=== PATIENT | female | born 1995 | race African-American/Black ===

== ENCOUNTER 2016-07-26 07:17 | Emergency (ER) | payer OTHER ==
[~2016-07-26] VITALS: Ht 162.6 cm; Wt 110.2 kg
[~2016-07-26 07:17] MED LIST: AMOX500C PO; IBUP-1027 PO; ONDA4TAB10 SL; PREN-2 PO
[2016-07-26 07:33] VITALS: BP 155/81
[2016-07-26] MEDS ORDERED: AMOX500C PO (08:01)
--- NOTE | 2016-07-26 08:02 | PHYS DOC ---
Past Medical History Past Medical History: Migraines Past Surgical History: No Surgical History Alcohol Use: None Drug Use: None Adult General Chief Complaint Chief Complaint: SORE THROAT HPI HPI Patient is a 20 year old female presents to the emergency department with a history of sore throat and fever since yesterday. Patient states her fever was very high although was not able to provide a numerical for the temperature. Patient states she has white spots on her tonsils. She continues to state, "I googled the signs and symptoms and it indicated I have strep throat. Patient has decrease appetite. Denies nausea, vomiting or diarrhea. Patient does have foul odor from the mouth. Review of Systems Review of Systems Constitutional: subjective fever Eyes: Denies change in visual acuity, redness, or eye pain [] HENT: Denies nasal congestion. C/o sore throat [] Respiratory: Denies cough or shortness of breath [] Cardiovascular: No additional information not addressed in HPI [] GI: Denies abdominal pain, nausea, vomiting, bloody stools or diarrhea [] : Denies dysuria or hematuria [] Musculoskeletal: Denies back pain or joint pain [] Integument: Denies rash or skin lesions [] Neurologic: Denies headache, focal weakness or sensory changes [] Allergies Allergies Allergies Coded Allergies Type Severity Reaction Last Updated Verified ciprofloxacin Allergy Mild NAUSEA 03/24/16 Yes Physical Exam Physical Exam Constitutional: Well developed, well nourished, no acute distress, non-toxic appearance. [] HENT: Normocephalic, atraumatic, bilateral external ears normal, oropharynx moist, no oral exudates, nose normal. Bilateral TM normal, throat with white exudate noted on bilateral tonsils. Uvula with no deviation noted Eyes: PERRLA, EOMI, conjunctiva normal, no discharge. [] Neck: Normal range of motion, no tenderness, supple, no stridor. [] Cardiovascular:Heart rate regular rhythm, no murmur [] Lungs & Thorax: Bilateral breath sounds clear to auscultation [] Skin: Warm, dry, no erythema, no rash. [] Back: No tenderness Extremities: No tenderness, no cyanosis, no clubbing, ROM intact, no edema. [] Neurologic: Alert and oriented X 3, normal motor function, normal sensory function, no focal deficits noted. [] Psychologic: Affect normal, judgement normal, mood normal. [] Current Patient Data Vital Signs Vital Signs Date Time Temp Pulse Resp B/P Pulse Ox O2 Delivery O2 Flow Rate FiO2 07/26/16 07:33 98.8 110 17 97 Room Air 98.8 EKG EKG [] Radiology/Procedures Radiology/Procedures [] Course & Med Decision Making Course & Med Decision Making Pertinent Labs and Imaging studies reviewed. (See chart for details) Rapid strep negative. Patient will be treated with amoxicillin as the odor from the mouth smells like strep. Patient will be encouraged to continue with tylenol or ibuprofen for fever, chills or generalized body aches. Recommended plenty of fluids such as water, gatorade, or propel. Patient was provided with signs and symptoms to return to the emergency department. Patient agrees with discharge instructions, treatment regimen and followup recommendations. [] Dragon Disclaimer Dragon Disclaimer This electronic medical record was generated, in whole or in part, using a voice recognition dictation system. Departure Departure Impression: Primary Impression: Pharyngitis Disposition: HOME, SELF-CARE Condition: STABLE Referrals: UNKNOWN PCP NAME (PCP) Patient Instructions: Viral and Bacterial Pharyngitis, [id number] Additional Instructions: You have been evaluated for your sore throat. Rapid strep was negative a culture will be completed to rule out strep. However you will be placed on antibiotic Medication as prescribed Tylenol or Ibuprofen for fever, chills, or generalized body aches Drink plenty of water, gatorade or propel Discard you tooth brush in 24 hours and get a new Do not drink after anyone or let anyone drink after you for the next 24 hours Followup with your primary care provider in 5-7 days Return to emergency department as needed for signs and symptoms that become worse. Scripts Amoxicillin 500 Mg Capsule1 Cap PO BID #20 CAP Prov:EDWARD MERCHANT NP 07/26/16 EDWARD MERCHANT NP Jul 26, 2016 08:01
[2016-07-28 10:06] LABS: NEGATIVE OBC STREP NEG; POSITIVE OBC STREP POS
== END 2016-07-26 08:06 | disposition home or self-care (01) ==
LOC: ER 07:17
DX: J02.9 Acute pharyngitis, unspecified (principal); Z88.1 Allergy status to other antibiotic agents
CPT/HCPCS: 87070; 87880; 99283

== ENCOUNTER 2017-02-09 20:15 | Emergency (ER) | payer OTHER ==
[~2017-02-09] VITALS: Ht 162.6 cm; Wt 114.8 kg
[2017-02-09 20:36] VITALS: BP 129/86
[2017-02-09] MEDS ORDERED: CETI1TAB7 PO (21:15)
[2017-02-09] MEDS ORDERED: FLUT9.9S NS (21:15)
[2017-02-09] MEDS ORDERED: PROAIR RESPICL90 MCG IH (21:15)
[2017-02-09] MEDS ORDERED: BENZ100C PO (21:15)
--- NOTE | 2017-02-09 21:15 | PHYS DOC ---
Past Medical History Past Medical History: Migraines Past Surgical History: No Surgical History Alcohol Use: None Drug Use: None Adult General Chief Complaint Chief Complaint: Congestion HPI HPI Patient is a 21 year old female with history of migraine headaches who presents with cough and nasal congestion for one day. Patient denies any fever. Review of Systems Review of Systems Constitutional: See history of present illness Eyes: Denies change in visual acuity, redness, or eye pain [] HENT: nasal congestion Respiratory:cough Cardiovascular: No additional information not addressed in HPI [] GI: Denies abdominal pain, nausea, vomiting, bloody stools or diarrhea [] : Denies dysuria or hematuria [] Musculoskeletal: Denies back pain or joint pain [] Integument: Denies rash or skin lesions [] Neurologic: Denies headache, focal weakness or sensory changes [] Allergies Allergies Allergies Coded Allergies Type Severity Reaction Last Updated Verified ciprofloxacin Allergy Mild NAUSEA 03/24/16 Yes Physical Exam Physical Exam Constitutional: Well developed, well nourished, no acute distress, non-toxic appearance. [] HENT: Normocephalic, atraumatic, bilateral external ears normal, oropharynx moist, no oral exudates, nose normal. [] Eyes: PERRLA, EOMI, conjunctiva normal, no discharge. [] Neck: Normal range of motion, no tenderness, supple, no stridor. [] Cardiovascular:Heart rate regular rhythm, no murmur [] Lungs & Thorax: Bilateral breath sounds clear to auscultation [] Abdomen: Bowel sounds normal, soft, no tenderness, no masses, no pulsatile masses. [] Skin: Warm, dry, no erythema, no rash. [] Back: No tenderness, no CVA tenderness. [] Extremities: No tenderness, no cyanosis, no clubbing, ROM intact, no edema. [] Neurologic: Alert and oriented X 3, normal motor function, normal sensory function, no focal deficits noted. [] Psychologic: Affect normal, judgement normal, mood normal. [] Current Patient Data Vital Signs Vital Signs Date Time Temp Pulse Resp B/P (MAP) Pulse Ox O2 Delivery O2 Flow Rate FiO2 02/09/17 20:36 99.4 119 20 97 Room Air 99.4 EKG EKG [] Radiology/Procedures Radiology/Procedures [] Course & Med Decision Making Course & Med Decision Making Pertinent Labs and Imaging studies reviewed. (See chart for details) Patient is in the ED with symptoms consistent of upper respiratory infection including cough and nasal congestion. Discharged with Flonase, albuterol inhaler , Zyrtec and instructed to follow-up with the PCP in 1-2 weeks. Nii Disclaimer Dragon Disclaimer This electronic medical record was generated, in whole or in part, using a voice recognition dictation system. Departure Departure Impression: Primary Impression: Upper respiratory infection Additional Impression: Cough Disposition: 01 HOME, SELF-CARE Condition: STABLE Referrals: NO PCP (PCP) follow up with your doctor in one week Patient Instructions: Cough, Adult, [id number], Upper Respiratory Infection, Adult, [id number] Additional Instructions: You were seen with symptoms consistent of an upper respiratory infection. This is typically a viral illnesses that run its own course. Take the prescribed medicines as ordered. Follow-up with your doctor in 1-2 weeks. Scripts Benzonatate (TESSALON PERLE) 100 Mg Capsule 1 CAP PO TID, #30 CAP Prov: GIOVANNI STORM APRN 02/09/17 Cetirizine Hcl/Pseudoephedrine (ZYRTEC-D TABLET) 1 Each Tab.er.12h 1 TAB PO BID, #30 TAB Prov: GIOVANNI STORM APRN 02/09/17 Fluticasone Propionate (Flonase Allergy Relief) 9.9 Ml [place].susp 2 SPRAYS NS DAILY, #1 BOTTLE Prov: GIOVANNI STORM APRN 02/09/17 Albuterol Sulfate (Proair Respiclick) 90 Mcg Aer.pow.ba 1 PUFF IH PRN Q6HRS Y for SHORTNESS OF BREATH, #1 INHALER Prov: GIOVANNI STORM APRN 02/09/17 Problem Qualifiers Primary Impression: Upper respiratory infection URI type: unspecified URI Qualified Codes: J06.9 - Acute upper respiratory infection, unspecified GIOVANNI STORM APRN Feb 09, 2017 21:15
== END 2017-02-09 21:32 | disposition home or self-care (01) ==
LOC: ER 20:15
DX: J06.9 Acute upper respiratory infection, unspecified (principal); G43.909 Migraine, unspecified, not intractable, without status migrainosus; Z88.1 Allergy status to other antibiotic agents
CPT/HCPCS: 99283

== ENCOUNTER 2017-06-18 17:50 | Emergency (ER) | payer OTHER ==
[2017-06-18 20:39] LABS: URINE HCG POC HCG NEGATIVE (Negative)
[2017-06-18 20:52] LABS: BILIRUBIN,URINE NEGATIVE (NEG); CLARITY,URINE CLEAR; COLOR,URINE YELLOW; GLUCOSE,URINE NEGATIVE (NEG); NITRITE,URINE NEGATIVE (NEG); PROTEIN,URINE NEGATIVE (NEG-TRACE); UROBILINOGEN,URINE 0.2 mg/dL (0.2 mg/dL)
[2017-06-18 20:55] LABS: INFLUENZA A PATIENT NEGATIVE (NEGATIVE); INFLUENZA B PATIENT NEGATIVE (NEGATIVE); OBC FLU VALID
[2017-06-18 21:09] LABS: BACTERIA,URINE MODERATE /HPF (0-FEW); RBC,URINE 0 /HPF (0-2); SQUAMOUS EPITHELIAL CELL,UR MOD /LPF
== END 2017-06-18 21:24 | disposition home or self-care (01) ==
LOC: ER 17:50
DX: J02.9 Acute pharyngitis, unspecified (principal); N39.0 Urinary tract infection, site not specified; R19.7 Diarrhea, unspecified; R30.0 Dysuria; J45.909 Unspecified asthma, uncomplicated; Z88.1 Allergy status to other antibiotic agents
CPT/HCPCS: 71046; 81001; 81025; 87086; 87804; 87804-59; 99285-25

== ENCOUNTER 2018-04-07 18:59 | Emergency (ER) | payer SELFPAY ==
[~2018-04-07] VITALS: Ht 165.1 cm; Wt 127.5 kg
[~2018-04-07 18:59] MED LIST changes: +BENZ100C PO; +CEPH-264 PO; +CETI1TAB7 PO; +FLUT9.9S NS; +PROAIR RESPICL90 MCG IH
[2018-04-07 19:13] VITALS: BP 131/75
[2018-04-07] MEDS: ACETAMINOPHEN 500 MG TABLET PO ONE (19:51)
[2018-04-07] MEDS: ONDANSETRON ODT 4 MG TAB.RAPDIS. PO ONE (19:51)
--- NOTE | 2018-04-07 20:57 | PHYS DOC ---
Past Medical History Past Medical History: No Pertinent History Past Surgical History: Other Additional Past Surgical Histo: wisdom teeth Alcohol Use: None Drug Use: None Adult General Chief Complaint Chief Complaint: ABDOMINAL PAIN HPI HPI Patient is a 22 year old f who presents to the ED for evaluation of abdominal pain. Reports onset of generalized cramping, nausea, vomiting, diarrhea yesterday. States improved today but still present. has not taken anything for pain. Report resolved diarrhea. Tolerating PO today. No dysuria. No GI bleed symptoms. Daughter with similar symptoms. no fever. Review of Systems Review of Systems Constitutional: Denies fever or chills [] Eyes: Denies change in visual acuity, redness, or eye pain [] HENT: Denies nasal congestion or sore throat [] Respiratory: Denies cough or shortness of breath [] Cardiovascular: No chest pain, no orthopnea, no lower extremity edema GI: Adriel pain, nausea, vomiting, diarrhea all present. : Denies dysuria or hematuria [] Musculoskeletal: Denies back pain or joint pain [] Integument: Denies rash or skin lesions [] Neurologic: Denies headache, focal weakness or sensory changes [] Endocrine: Denies polyuria or polydipsia [] All other systems were reviewed and found to be within normal limits, except as documented in this note. Current Medications Current Medications Current Medications Medications (Trade) Dose Ordered Sig/Alejandro Start Time Stop Time Status Last Admin Dose Admin Acetaminophen (Tylenol) 1,000 mg 1X ONCE 04/07/18 19:45 04/07/18 19:46 DC 04/07/18 19:51 1,000 MG Ondansetron HCl (Zofran Odt) 8 mg 1X ONCE 04/07/18 19:45 04/07/18 19:46 DC 04/07/18 19:51 8 MG Allergies Allergies Allergies Coded Allergies Type Severity Reaction Last Updated Verified ciprofloxacin Allergy Mild NAUSEA 03/24/16 Yes Physical Exam Physical Exam Constitutional: Obese, no acute distress, nontoxic appearing HENT: Normocephalic, atraumatic, Eyes: PERRLA, EOMI, [] Neck: Normal range of motion, no tenderness, supple, no stridor. [] Cardiovascular:Heart rate regular rhythm, no murmur [] Lungs & Thorax: Bilateral breath sounds clear to auscultation [] Abdomen: Bowel sounds normal, soft, no tenderness, no masses, no pulsatile masses. [] Skin: Warm, dry, no erythema, no rash. [] Back: No tenderness, no CVA tenderness. [] Extremities: No tenderness, no edema. [] Neurologic: Alert and oriented X 3, normal motor function, normal sensory function, no focal deficits noted. [] Psychologic: Affect normal, judgement normal, mood normal. [] Current Patient Data Vital Signs Vital Signs Date Time Temp Pulse Resp B/P (MAP) Pulse Ox O2 Delivery O2 Flow Rate FiO2 04/07/18 19:13 98.0 94 20 131/75 (93) 97 Room Air 98.0 Lab Values Laboratory Tests Test 04/07/18 19:36 POC Urine HCG, Qualitative Hcg negative (Negative) EKG EKG [] Radiology/Procedures Radiology/Procedures [] Course & Med Decision Making Course & Med Decision Making Pertinent Labs and Imaging studies reviewed. (See chart for details) []She improved with PO Tylenol and Zofran. Patient tolerating PO. Patient with improving symptoms over the last 24 hours. She has benign abdominal exam. Discuss possibility of early pathology at this time do not feel that her exam or history indicated further evaluation. Patient was in agreement. Advised continue supportive care. ER return precautions given. Patient verbalized understanding. All questions answered Dragon Disclaimer Dragon Disclaimer This electronic medical record was generated, in whole or in part, using a voice recognition dictation system. Departure Departure Impression: Primary Impression: Gastroenteritis Disposition: 01 HOME, SELF-CARE Condition: IMPROVED Referrals: RABIA ADAMS MD (PCP) Patient Instructions: Viral Gastroenteritis Additional Instructions: Thank you for coming to [facility]. Please repeat the attached handouts. Please follow-up with your primary care physician. Return to the ER if your symptoms worsen or you have any other concerns. Scripts Ondansetron Hcl (ZOFRAN) 4 Mg Tablet 4 MG PO PRN TID PRN for NAUSEA, #15 nausea/vomiting Prov: NERY BURKS DO 04/07/18 NERY BURKS DO Apr 07, 2018 20:57
[2018-04-07] MEDS ORDERED: ONDA4TAB7 PO (20:58)
== END 2018-04-07 21:07 | disposition home or self-care (01) ==
LOC: ER 18:59
DX: K52.89 Other specified noninfective gastroenteritis and colitis (principal); Z88.1 Allergy status to other antibiotic agents
CPT/HCPCS: 81025; 99283; Q0162

== ENCOUNTER 2018-04-28 10:55 | Emergency (ER) | payer SELFPAY ==
[~2018-04-28] VITALS: Ht 165.1 cm; Wt 127.5 kg
[~2018-04-28 10:55] MED LIST changes: +ONDA4TAB7 PO
[2018-04-28 11:06] VITALS: BP 149/78
[2018-04-28] MEDS ORDERED: ACETAMINOPHEN 500 MG TABLET PO ONE (11:30)
[2018-04-28] MEDS ORDERED: ALBUTEROL SULFATE 2.5 MG/3 ML NEBU. NEB ONE (11:30)
--- NOTE | 2018-04-28 12:02 | RAD ---
Two-view chest 04/28/2018 Clinical indications: Cough for one week. COMPARISON: Chest 06/18/2017 FINDINGS: Cardiac and mediastinal silhouettes unremarkable. No pleural effusion, pneumothorax or focal consolidation. IMPRESSION: No acute cardiopulmonary abnormality. Electronically signed by: Martin De Leon MD (04/28/2018 11:59 AM) [facility]
[2018-04-28] MEDS ORDERED: AZIT250T PO (12:14)
--- NOTE | 2018-04-28 12:15 | PHYS DOC ---
Past Medical History Past Medical History: No Pertinent History Past Surgical History: Other Additional Past Surgical Histo: wisdom teeth Alcohol Use: None Drug Use: None Adult General Chief Complaint Chief Complaint: COUGH HPI HPI Patient is a 22 year old female who presents to the ER with complaints of a productive cough with clear to yellow sputum for the last week that has increased today. She denies any abdominal pain or diarrhea. She reports a tactile fever but has not measured her temperature. Pt reports nasal congestion , bilateral ear fullness, and scratchy throat with her symptoms. She states that she she vomited yesterday after coughing x2. She denies any decreased appetite. She reports intermittent shortness of breath with chest congestion. Review of Systems Review of Systems Constitutional: Reports tactile fever HENT: See HPI Respiratory: See HPI GI: Denies abdominal pain or diarrhea [] Musculoskeletal: Denies back pain or joint pain [] Integument: Denies rash or skin lesions [] Neurologic: Denies headache, focal weakness or sensory changes [] All other systems were reviewed and found to be within normal limits, except as documented in this note. Current Medications Current Medications Current Medications Medications (Trade) Dose Ordered Sig/Alejandro Start Time Stop Time Status Last Admin Dose Admin Acetaminophen (Tylenol) 1,000 mg 1X ONCE 04/28/18 11:30 04/28/18 11:31 DC 04/28/18 11:38 1,000 MG Albuterol Sulfate (Ventolin Neb Soln) 2.5 mg 1X ONCE 04/28/18 11:30 04/28/18 11:31 DC Allergies Allergies Allergies Coded Allergies Type Severity Reaction Last Updated Verified ciprofloxacin Allergy Mild NAUSEA 03/24/16 Yes Physical Exam Physical Exam Constitutional: Well developed, well nourished, no acute distress, non-toxic appearance, obese. [] HENT: Normocephalic, atraumatic, bilateral external ears normal, bilateral TMs normal, cobblestone appearance of posterior pharynx with thick post-nasal drainage, oropharynx moist, no oral exudates, nose normal. [] Eyes: PERRLA, conjunctiva normal, no discharge. [] Neck: Normal range of motion, no tenderness, supple, no stridor. [] Cardiovascular:Heart rate regular rhythm, no murmur [] Lungs & Thorax: Bilateral breath sounds clear to auscultation, diminished posterior bilaterally [] Skin: Warm, dry, no erythema, no rash. [] Extremities: No cyanosis, no clubbing, ROM intact, no edema. [] Neurologic: Alert and oriented X 3, normal motor function, normal sensory function, no focal deficits noted. [] Psychologic: Affect normal, judgement normal, mood normal. [] Current Patient Data Vital Signs Vital Signs Date Time Temp Pulse Resp B/P (MAP) Pulse Ox O2 Delivery O2 Flow Rate FiO2 04/28/18 11:59 97 Room Air 04/28/18 11:06 100.7 124 18 149/78 (101) 100.7 EKG EKG [] Radiology/Procedures Radiology/Procedures PROCEDURE: CHEST PA & LATERAL Two-view chest 04/28/2018 Clinical indications: Cough for one week. COMPARISON: Chest 06/18/2017 FINDINGS: Cardiac and mediastinal silhouettes unremarkable. No pleural effusion, pneumothorax or focal consolidation. IMPRESSION: No acute cardiopulmonary abnormality. Course & Med Decision Making Course & Med Decision Making Pertinent Labs and Imaging studies reviewed. (See chart for details) Dx: cough, pneumonia Pt was given a breathing treatment in the ER, lung sounds improved and CTA following breathing tx. Prescription for z-samanta written. Pt instructed to use a Cool mist humidifier in room at bedtime. Tylenol or ibuprofen prn pain/fever. Increase clear fluids. Avoid triggers such as smoke, fragrance, dust, and pollen. May take OTC cough suppressants as needed. Return to the ER if symptoms worsen. Patient verbalized an understanding of home care, medications, follow-up , and return to ED instructions and was in agreement with the plan of care. Dragon Disclaimer Dragon Disclaimer This electronic medical record was generated, in whole or in part, using a voice recognition dictation system. Departure Departure Impression: Primary Impression: Cough Additional Impression: Pneumonia Disposition: HOME, SELF-CARE Condition: STABLE Referrals: RABIA ADAMS MD (PCP) Patient Instructions: Cough, Adult, [id number], Pneumonia, Adult, Easy-to- Read Additional Instructions: Fill prescription(s) and use as directed. Cool mist humidifier in room at bedtime. Tylenol or ibuprofen prn pain/fever. Increase clear fluids. Avoid triggers such as smoke, fragrance, dust, and pollen. May take OTC cough suppressants as needed. Follow-up with your primary care doctor as needed, return to the ER if your symptoms worsen. Scripts Azithromycin (ZITHROMAX) 250 Mg Tablet 1 PKG PO UD, #6 TAB take 2 tablets PO day 1, then 1 tablet PO days 2-5 Prov: YUSEF LEARY [employer]LECT[employer]ICAL [employer]SEMBLY TECHNICIAN 04/28/18 Problem Qualifiers Additional Impression: Pneumonia Pneumonia type: due to unspecified organism Laterality: unspecified laterality Lung location: lower lobe of lung Qualified Codes: J18.1 - Lobar pneumonia, unspecified organism YUSEF LEARY ELECTRICAL ASSEMBLY TECHNICIAN Apr 28, 2018 12:15
== END 2018-04-28 12:31 | disposition home or self-care (01) ==
LOC: ER 10:55
DX: J18.1 Lobar pneumonia, unspecified organism (principal); R11.10 Vomiting, unspecified; Z88.1 Allergy status to other antibiotic agents
CPT/HCPCS: 71046; 94640; 99283

== ENCOUNTER 2018-11-14 19:00 | Emergency (ER) | payer OTHER ==
[~2018-11-14] VITALS: Ht 162.6 cm; Wt 127.5 kg
[~2018-11-14 19:00] MED LIST changes: +AZIT250T PO
[2018-11-14 19:32] VITALS: BP 140/81
[2018-11-14 19:52] LABS: BILIRUBIN,URINE NEGATIVE (NEG); CLARITY,URINE CLEAR; COLOR,URINE YELLOW; NITRITE,URINE NEGATIVE (NEG); PH,URINE 5.5; PROTEIN,URINE NEGATIVE (NEG-TRACE); UROBILINOGEN,URINE 0.2 mg/dL (0.2 mg/dL)
[2018-11-14 20:01] LABS: BACTERIA,URINE FEW /HPF (0-FEW); RBC,URINE 0 /HPF (0-2); SQUAMOUS EPITHELIAL CELL,UR OCC /LPF; WBC,URINE OCC /HPF (0-4)
[2018-11-14 20:27] LABS: BASO # 0.1 x10^3/uL (0.0-0.2); BASO % 1 % (0-3); EOS # 0.1 x10^3/uL (0.0-0.7); EOS % 1 % (0-3); HEMATOCRIT 39.5 % (36.0-47.0); HEMOGLOBIN 13.1 g/dL (12.0-15.5); LYMPH # 3.9 x10^3/uL (1.0-4.8); LYMPH % 33 % (24-48); MEAN CORPUSCULAR HEMOGLOBIN 30 pg (25-35); MEAN CORPUSCULAR HGB CONC 33 g/dL (31-37); MEAN CORPUSCULAR VOLUME 89 fL (79-100); MONO # 0.9 x10^3/uL (0.0-1.1); MONO % 8 % (0-9); NEUT # 6.8 x10^3uL (1.8-7.7); NEUT % 58 % (31-73); PLATELET COUNT 339 x10^3/uL (140-400); RED BLOOD COUNT 4.42 x10^6/uL (3.50-5.40); RED CELL DISTRIBUTION WIDTH 15.5 % (11.5-14.5); WHITE BLOOD COUNT 11.7 x10^3/uL (4.0-11.0)
[2018-11-14] MEDS ORDERED: IV NORMAL SALINE 1000ML BAG 1,000 ML IV ONE (20:30)
[2018-11-14 20:40] LABS: CALCIUM 9.7 mg/dL (8.5-10.1); CREATININE 0.7 mg/dL (0.6-1.0); GFR 125.5; POTASSIUM 3.7 mmol/L (3.5-5.1)
[2018-11-14 20:47] LABS: ALBUMIN 3.5 g/dL (3.4-5.0); ALBUMIN/GLOBULIN RATIO 0.7 (1.0-1.7); TOTAL BILIRUBIN 0.2 mg/dL (0.2-1.0); TOTAL PROTEIN 8.2 g/dL (6.4-8.2)
[2018-11-14] MEDS ORDERED: ACETAMINOPHEN 325 MG TABLET. PO ONE (22:30)
--- NOTE | 2018-11-14 23:11 | RAD ---
OB < 14 WKS History: Bilateral flank pain and vomiting Comparison: None. Findings: Multiple transabdominal sonographic images of the pelvis are submitted. Uterus measured 6.2 cm x 5.8 cm x 10 cm. There is a single intrauterine gestational sac. Gestational sac morphology is within normal limits. There is demonstrable pole. There is demonstrable cardiac activity 173 bpm. Placenta and anatomy are not well visualized at this age of the . Amniotic fluid volume is considered within normal limits. There is a visible yolk sac. [place]-rump length measurement of 2.14 cm corresponds with 8 weeks 5 days. Adjusted ultrasound age is 8 weeks 5 days with estimated delivery date of 06/21/2019. LMP age is 9 weeks 4 days with estimated delivery date 06/15/2019. Right maternal ovary measured 2.4 x 2 x 2.1 cm with normal low resistance vascularity. Left ovary measured 3 x 2.6 x 1.8 cm with normal color flow. There is a focus of hypoechogenicity with internal echoes of the left ovary about 2.1 x 2.1 x 1.8 cm. No significant free fluid is demonstrated. Impression: 1. There is a single viable intrauterine with adjusted ultrasound age of 8 weeks 5 days, estimated delivery date of 06/21/2019. There is what likely represents a corpus luteal cyst of the left ovary. Electronically signed by: Cliff Lucio MD (11/14/2018 11:08 PM) [facility]
--- NOTE | 2018-11-14 23:11 | PHYS DOC ---
Past Medical History Past Medical History: Asthma Past Surgical History: Other Additional Past Surgical Histo: wisdom teeth Alcohol Use: None Drug Use: None Adult General Chief Complaint Chief Complaint: ABDOMINAL PAIN HPI HPI 23-year-old female presents to ER for complaints of bilateral side pain which started last night. Patient denies any mid to lower abdominal pain or back pain. Patient states she is approximately 9 weeks with LMP 09/08/18. She denies any OB care. Patient states she is 2 para 1 with this . She denies urinary symptoms, fever, or V/D episodes. She reports she has had intermittent nausea since . Denies any injury or falls. Patient denies any vaginal bleeding/discharge. She reports she does have slight headache denies vision change, dizziness, or lightheadedness. Patient states she hasn't had much to eat today but has been drinking fluids. Review of Systems Review of Systems Constitutional: Denies fever or chills [] Eyes: Denies change in visual acuity, redness, or eye pain [] HENT: Denies nasal congestion or sore throat [] Respiratory: Denies cough or shortness of breath [] Cardiovascular: No additional information not addressed in HPI [] GI: Denies abdominal pain, nausea, vomiting, bloody stools or diarrhea [] : Denies dysuria or hematuria [] Musculoskeletal: Denies back pain or joint pain [] Integument: Denies rash or skin lesions [] Neurologic: Denies headache, focal weakness or sensory changes [] Endocrine: Denies polyuria or polydipsia [] All other systems were reviewed and found to be within normal limits, except as documented in this note. Current Medications Current Medications Current Medications Medications (Trade) Dose Ordered Sig/Alejandro Start Time Stop Time Status Last Admin Dose Admin Acetaminophen (Tylenol) 650 mg 1X ONCE 11/14/18 22:30 11/14/18 22:31 DC 11/14/18 22:32 650 MG Sodium Chloride 1,000 ml @ 1,000 mls/hr 1X ONCE 11/14/18 20:30 11/14/18 21:29 DC 11/14/18 20:25 1,000 MLS/HR Allergies Allergies Allergies Coded Allergies Type Severity Reaction Last Updated Verified ciprofloxacin Allergy Mild NAUSEA 03/24/16 Yes Physical Exam Physical Exam Constitutional: Well developed, well nourished, no acute distress, non-toxic appearance. [] HENT: Normocephalic, atraumatic, oropharynx moist, nose normal. [] Eyes: Pupils equal, no nystagmus, conjunctiva normal, no discharge. [] Neck: Normal range of motion, no tenderness, supple, no stridor. [] Cardiovascular:Heart rate regular rhythm, no murmur [] Lungs & Thorax: Bilateral breath sounds clear to auscultation- resp. equal/nonlabored Abdomen: Bowel sounds normal, soft/obese, no tenderness in upper/mid umbilical/lower abd- tender on lower lateral sides no crepitus/swelling, no masses, no pulsatile masses. [] Skin: Warm, dry, no erythema, no rash. [] Back: No tenderness, no CVA tenderness. [] Extremities: No tenderness, no cyanosis, no clubbing, ROM intact, no edema. [] Neurologic: Alert and oriented X 3, normal motor function, normal sensory function, no focal deficits noted. [] Psychologic: Affect normal, judgement normal, mood normal. [] Current Patient Data Vital Signs Vital Signs Date Time Temp Pulse Resp B/P (MAP) Pulse Ox O2 Delivery O2 Flow Rate FiO2 11/14/18 19:32 98.6 114 22 140/81 (100) 98 Room Air 98.6 Lab Values Laboratory Tests Test 11/14/18 19:35 11/14/18 19:44 White Blood Count 11.7 x10^3/uL (4.0-11.0) H Red Blood Count 4.42 x10^6/uL (3.50-5.40) Hemoglobin 13.1 g/dL (12.0-15.5) Hematocrit 39.5 % (36.0-47.0) Mean Corpuscular Volume 89 fL (79-100) Mean Corpuscular Hemoglobin 30 pg (25-35) Mean Corpuscular Hemoglobin Concent 33 g/dL (31-37) Red Cell Distribution Width 15.5 % (11.5-14.5) H Platelet Count 339 x10^3/uL (140-400) Neutrophils (%) (Auto) 58 % (31-73) Lymphocytes (%) (Auto) 33 % (24-48) Monocytes (%) (Auto) 8 % (0-9) Eosinophils (%) (Auto) 1 % (0-3) Basophils (%) (Auto) 1 % (0-3) Neutrophils # (Auto) 6.8 x10^3uL (1.8-7.7) Lymphocytes # (Auto) 3.9 x10^3/uL (1.0-4.8) Monocytes # (Auto) 0.9 x10^3/uL (0.0-1.1) Eosinophils # (Auto) 0.1 x10^3/uL (0.0-0.7) Basophils # (Auto) 0.1 x10^3/uL (0.0-0.2) Urine Color Yellow Urine Clarity Clear Urine pH 5.5 Urine Specific [place] >=1.030 Urine Protein Negative mg/dL (NEG-TRACE) Urine Glucose (UA) Negative mg/dL (NEG) Urine Ketones (Stick) Negative mg/dL (NEG) Urine Blood Negative (NEG) Urine Nitrite Negative (NEG) Urine Bilirubin Negative (NEG) Urine Urobilinogen Dipstick 0.2 mg/dL (0.2 mg/dL) Urine Leukocyte Esterase Small (NEG) Urine RBC 0 /HPF (0-2) Urine WBC Occ /HPF (0-4) Urine Squamous Epithelial Cells Occ /LPF Urine Bacteria Few /HPF (0-FEW) Urine Mucus Slight /LPF Maternal Serum HCG Beta Subunit 05903 mIU/mL (0-5) H Sodium Level 137 mmol/L (136-145) Potassium Level 3.7 mmol/L (3.5-5.1) Chloride Level 101 mmol/L (98-107) Carbon Dioxide Level 24 mmol/L (21-32) Anion Gap 12 (6-14) Blood Urea Nitrogen 11 mg/dL (7-20) Creatinine 0.7 mg/dL (0.6-1.0) Estimated GFR (Cockcroft-Gault) 125.5 BUN/Creatinine Ratio 16 (6-20) Glucose Level 91 mg/dL (70-99) Calcium Level 9.7 mg/dL (8.5-10.1) Total Bilirubin 0.2 mg/dL (0.2-1.0) Aspartate Amino Transferase (AST) 13 U/L (15-37) L Alanine Aminotransferase (ALT) 17 U/L (14-59) Alkaline Phosphatase 74 U/L (46-116) Total Protein 8.2 g/dL (6.4-8.2) Albumin 3.5 g/dL (3.4-5.0) Albumin/Globulin Ratio 0.7 (1.0-1.7) L Lipase 107 U/L (73-393) POC Urine HCG, Qualitative Hcg positive (Negative) Laboratory Tests 11/14/18 19:35 Laboratory Tests 11/14/18 19:35 EKG EKG [] Radiology/Procedures Radiology/Procedures [] Course & Med Decision Making Course & Med Decision Making Pertinent Labs and Imaging studies reviewed. (See chart for details) Patient was evaluated in the ER for complaints of lateral side pain. On exam patient had no upper/mid umbilical/lower abdominal pain or distention. Abdomen was soft. Patient had labs and ultrasound obtained. Labs unremarkable. UA negative for infection. US report of "There is a single viable intrauterine with adjusted ultrasound age of 8 weeks 5 days, estimated delivery date of 06/21/2019". Patient had reports of mild headache and so crackers, water and dose of Tylenol was provided and patient reported symptoms much improved. Test results were discussed with her. Advised on need to establish STAMP ANALYST doctor so will provide Dr. Mishra's referral information on discharge paperwork and community clinic resource sheet will be provided. Patient advised on increasing fluid intake. Patient advised on well-balanced meals. Education provided on signs and symptoms to return to ER. Discharge instructions were discussed. Dragon Disclaimer Dragon Disclaimer This electronic medical record was generated, in whole or in part, using a voice recognition dictation system. Departure Departure Impression: Primary Impression: Abdominal pain during Disposition: 01 HOME, SELF-CARE Condition: STABLE Referrals: UNKNOWN PCP NAME (PCP) HERNANDEZ MISHRA Jr, MD Patient Instructions: Abdominal Pain During Additional Instructions: It is important for you to establish an STAMP ANALYST doctor for reevaluation and further care during her . Call as soon as possible and schedule an appointment. Drink plenty of water avoiding sodas. Eat well balanced meals daily. Tylenol as needed for pain as directed on container. If unable to get an appointment with STAMP ANALYST and symptoms worsen or with concerns return to the emergency department for reevaluation and further care. Your ultrasound report showed that you are 8 weeks 5 days with an estimated delivery date of 06/21/2019. [address]YA [address] MECHANICAL ENGINEER Nov 14, 2018 23:10
== END 2018-11-14 23:55 | disposition home or self-care (01) ==
LOC: ER 19:00
DX: O26.891 Other specified pregnancy related conditions, first trimester (principal); R10.30 Lower abdominal pain, unspecified; R11.0 Nausea; R51 Headache; O99.511 Diseases of the respiratory system complicating pregnancy, first trimester; J45.909 Unspecified asthma, uncomplicated; Z3A.01 Less than 8 weeks gestation of pregnancy; Z88.1 Allergy status to other antibiotic agents
CPT/HCPCS: 36415; 76801; 80053; 81001; 81025; 83690; 84702; 85025; 87086; 96360; 96361; 99285; J7030

== ENCOUNTER 2018-11-25 09:19 | Emergency (ER) | payer OTHER ==
[~2018-11-25] VITALS: Ht 162.6 cm; Wt 127.0 kg
[2018-11-25 09:35] VITALS: BP 143/84
[2018-11-25 09:57] LABS: BILIRUBIN,URINE NEGATIVE (NEG); CLARITY,URINE CLEAR; COLOR,URINE YELLOW; NITRITE,URINE NEGATIVE (NEG); PROTEIN,URINE 30 mg/dL (NEG-TRACE); UROBILINOGEN,URINE 0.2 mg/dL (0.2 mg/dL)
[2018-11-25 10:06] LABS: RBC,URINE >40 /HPF (0-2); SQUAMOUS EPITHELIAL CELL,UR MOD /LPF
[2018-11-25 10:07] LABS: BACTERIA,URINE MOD /HPF (0-FEW)
--- NOTE | 2018-11-25 10:08 | PHYS DOC ---
Past Medical History Past Medical History: Asthma Past Surgical History: Other Additional Past Surgical Histo: wisdom teeth Alcohol Use: None Drug Use: None Adult General Chief Complaint Chief Complaint: ABDOMINAL PAIN IN HPI HPI Patient is a 23 year old female 2 para 1 currently 10 weeks presenting to the ED today complaining of mild left lower quadrant abdominal daniella n described as sharp as well as vaginal bleeding that began 15 minutes prior to arrival to the ED. Patient states she was having intercourse when she noted the pain and the bleeding. Patient denies any urgency, frequency or dysuria. Denies any nausea vomiting. She states she has not seen her TECHNICAL SALES ADVISOR yet because of scheduling issues related to the office being booked weeks ahead. Review of Systems Review of Systems Constitutional: Denies fever or chills [] Eyes: Denies change in visual acuity, redness, or eye pain [] HENT: Denies nasal congestion or sore throat [] Respiratory: Denies cough or shortness of breath [] Cardiovascular: No additional information not addressed in HPI [] GI: Reports left lower quadrant abdominal pain and vaginal bleeding in , denies nausea, vomiting, bloody stools or diarrhea [] : Denies dysuria or hematuria [] Musculoskeletal: Denies back pain or joint pain [] Integument: Denies rash or skin lesions [] Neurologic: Denies headache, focal weakness or sensory changes [] All other systems were reviewed and found to be within normal limits, except as documented in this note. Allergies Allergies Allergies Coded Allergies Type Severity Reaction Last Updated Verified ciprofloxacin Allergy Mild NAUSEA 03/24/16 Yes Physical Exam Physical Exam Constitutional: Well developed, well nourished, no acute distress, non-toxic appearance. [] HENT: Normocephalic, atraumatic, bilateral external ears normal, oropharynx moist, no oral exudates, nose normal. [] Eyes: PERRLA, EOMI, conjunctiva normal, no discharge. [] Neck: Normal range of motion, no tenderness, supple, no stridor. [] Cardiovascular:Heart rate regular rhythm, no murmur [] Lungs & Thorax: Bilateral breath sounds clear to auscultation [] Abdomen: Bowel sounds normal, soft, no tenderness, no masses, no pulsatile masses. [] Pelvic exam External pelvic appears normal, cervix is visualized, closed, no CMT, no adnexal tenderness, trace amount of bright red blood in the vaginal vault. Skin: Warm, dry, no erythema, no rash. [] Back: No tenderness, no CVA tenderness. [] Extremities: No tenderness, no cyanosis, no clubbing, ROM intact, no edema. [] Neurologic: Alert and oriented X 3, normal motor function, normal sensory function, no focal deficits noted. [] Psychologic: Affect normal, judgement normal, mood normal. [] Current Patient Data Vital Signs Vital Signs Date Time Temp Pulse Resp B/P (MAP) Pulse Ox O2 Delivery O2 Flow Rate FiO2 11/25/18 09:35 99.1 111 20 143/84 (103) 97 Room Air 99.1 Lab Values Laboratory Tests Test 11/25/18 09:30 11/25/18 09:50 11/25/18 10:15 Urine Collection Type Unknown Urine Color Yellow Urine Clarity Clear Urine pH 6.0 Urine Specific [place] 1.025 Urine Protein 30 mg/dL (NEG-TRACE) Urine Glucose (UA) Negative mg/dL (NEG) Urine Ketones (Stick) Negative mg/dL (NEG) Urine Blood Large (NEG) Urine Nitrite Negative (NEG) Urine Bilirubin Negative (NEG) Urine Urobilinogen Dipstick 0.2 mg/dL (0.2 mg/dL) Urine Leukocyte Esterase Small (NEG) Urine RBC >40 /HPF (0-2) Urine WBC 5-10 /HPF (0-4) Urine Squamous Epithelial Cells Mod /LPF Urine Bacteria Mod /HPF (0-FEW) Urine Mucus Slight /LPF Urine Opiates Screen Neg (NEG) Urine Methadone Screen Neg (NEG) Urine Barbiturates Neg (NEG) Urine Phencyclidine Screen Neg (NEG) Urine Amphetamine/Methamphetamine Neg (NEG) Urine Benzodiazepines Screen Neg (NEG) Urine Cocaine Screen Neg (NEG) Urine Cannabinoids Screen Neg (NEG) Urine Ethyl Alcohol Neg (NEG) White Blood Count 9.5 x10^3/uL (4.0-11.0) Red Blood Count 4.41 x10^6/uL (3.50-5.40) Hemoglobin 13.0 g/dL (12.0-15.5) Hematocrit 39.4 % (36.0-47.0) Mean Corpuscular Volume 89 fL (79-100) Mean Corpuscular Hemoglobin 30 pg (25-35) Mean Corpuscular Hemoglobin Concent 33 g/dL (31-37) Red Cell Distribution Width 15.1 % (11.5-14.5) H Platelet Count 311 x10^3/uL (140-400) Neutrophils (%) (Auto) 59 % (31-73) Lymphocytes (%) (Auto) 32 % (24-48) Monocytes (%) (Auto) 8 % (0-9) Eosinophils (%) (Auto) 1 % (0-3) Basophils (%) (Auto) 1 % (0-3) Neutrophils # (Auto) 5.6 x10^3uL (1.8-7.7) Lymphocytes # (Auto) 3.0 x10^3/uL (1.0-4.8) Monocytes # (Auto) 0.8 x10^3/uL (0.0-1.1) Eosinophils # (Auto) 0.1 x10^3/uL (0.0-0.7) Basophils # (Auto) 0.1 x10^3/uL (0.0-0.2) Maternal Serum HCG Beta Subunit 99558 mIU/mL (0-5) H Sodium Level 134 mmol/L (136-145) L Potassium Level 3.7 mmol/L (3.5-5.1) Chloride Level 99 mmol/L (98-107) Carbon Dioxide Level 21 mmol/L (21-32) Anion Gap 14 (6-14) Blood Urea Nitrogen 7 mg/dL (7-20) Creatinine 0.6 mg/dL (0.6-1.0) Estimated GFR (Cockcroft-Gault) 149.9 BUN/Creatinine Ratio 12 (6-20) Glucose Level 86 mg/dL (70-99) Calcium Level 9.3 mg/dL (8.5-10.1) Total Bilirubin 0.3 mg/dL (0.2-1.0) Aspartate Amino Transferase (AST) 13 U/L (15-37) L Alanine Aminotransferase (ALT) 14 U/L (14-59) Alkaline Phosphatase 77 U/L (46-116) Total Protein 8.0 g/dL (6.4-8.2) Albumin 3.3 g/dL (3.4-5.0) L Albumin/Globulin Ratio 0.7 (1.0-1.7) L Ethyl Alcohol Level < 10 mg/dL (0-10) Laboratory Tests 11/25/18 10:15 Laboratory Tests 11/25/18 10:15 Microbiology 11/25/18 Wet Prep - Final, Complete Laboratory Tests Test 11/25/18 09:30 11/25/18 09:50 11/25/18 10:15 Urine Collection Type Unknown Urine Color Yellow Urine Clarity Clear Urine pH 6.0 Urine Specific [place] 1.025 Urine Protein 30 mg/dL (NEG-TRACE) Urine Glucose (UA) Negative mg/dL (NEG) Urine Ketones (Stick) Negative mg/dL (NEG) Urine Blood Large (NEG) Urine Nitrite Negative (NEG) Urine Bilirubin Negative (NEG) Urine Urobilinogen Dipstick 0.2 mg/dL (0.2 mg/dL) Urine Leukocyte Esterase Small (NEG) Urine RBC >40 /HPF (0-2) Urine WBC 5-10 /HPF (0-4) Urine Squamous Epithelial Cells Mod /LPF Urine Bacteria Mod /HPF (0-FEW) Urine Mucus Slight /LPF Urine Opiates Screen Neg (NEG) Urine Methadone Screen Neg (NEG) Urine Barbiturates Neg (NEG) Urine Phencyclidine Screen Neg (NEG) Urine Amphetamine/Methamphetamine Neg (NEG) Urine Benzodiazepines Screen Neg (NEG) Urine Cocaine Screen Neg (NEG) Urine Cannabinoids Screen Neg (NEG) Urine Ethyl Alcohol Neg (NEG) White Blood Count 9.5 x10^3/uL (4.0-11.0) Red Blood Count 4.41 x10^6/uL (3.50-5.40) Hemoglobin 13.0 g/dL (12.0-15.5) Hematocrit 39.4 % (36.0-47.0) Mean Corpuscular Volume 89 fL (79-100) Mean Corpuscular Hemoglobin 30 pg (25-35) Mean Corpuscular Hemoglobin Concent 33 g/dL (31-37) Red Cell Distribution Width 15.1 % (11.5-14.5) H Platelet Count 311 x10^3/uL (140-400) Neutrophils (%) (Auto) 59 % (31-73) Lymphocytes (%) (Auto) 32 % (24-48) Monocytes (%) (Auto) 8 % (0-9) Eosinophils (%) (Auto) 1 % (0-3) Basophils (%) (Auto) 1 % (0-3) Neutrophils # (Auto) 5.6 x10^3uL (1.8-7.7) Lymphocytes # (Auto) 3.0 x10^3/uL (1.0-4.8) Monocytes # (Auto) 0.8 x10^3/uL (0.0-1.1) Eosinophils # (Auto) 0.1 x10^3/uL (0.0-0.7) Basophils # (Auto) 0.1 x10^3/uL (0.0-0.2) Maternal Serum HCG Beta Subunit 03167 mIU/mL (0-5) H Sodium Level 134 mmol/L (136-145) L Potassium Level 3.7 mmol/L (3.5-5.1) Chloride Level 99 mmol/L (98-107) Carbon Dioxide Level 21 mmol/L (21-32) Anion Gap 14 (6-14) Blood Urea Nitrogen 7 mg/dL (7-20) Creatinine 0.6 mg/dL (0.6-1.0) Estimated GFR (Cockcroft-Gault) 149.9 BUN/Creatinine Ratio 12 (6-20) Glucose Level 86 mg/dL (70-99) Calcium Level 9.3 mg/dL (8.5-10.1) Total Bilirubin 0.3 mg/dL (0.2-1.0) Aspartate Amino Transferase (AST) 13 U/L (15-37) L Alanine Aminotransferase (ALT) 14 U/L (14-59) Alkaline Phosphatase 77 U/L (46-116) Total Protein 8.0 g/dL (6.4-8.2) Albumin 3.3 g/dL (3.4-5.0) L Albumin/Globulin Ratio 0.7 (1.0-1.7) L Ethyl Alcohol Level < 10 mg/dL (0-10) Laboratory Tests 11/25/18 10:15 Laboratory Tests 11/25/18 10:15 Microbiology 11/25/18 Wet Prep - Final, Complete EKG EKG [] Radiology/Procedures Radiology/Procedures []PROCEDURE: OB <14 WKS W/TV Obstetrical ultrasound, 11/25/2018: HISTORY: with bleeding Transabdominal scans were obtained. The uterus contains a single gestational sac. The gestational sac contains a pole demonstrating a crown-rump length of 3.6 cm. This suggests a gestational age of 10 weeks and 4 days yielding a sonographic EDC of 06/19/2019. There has been normal growth since 3 11/14/2018 exam. cardiac activity is present with a heart rate of 165 bpm. There is no evidence of subchorionic hemorrhage. The maternal ovaries are unremarkable. No adnexal mass is seen. No free fluid is evident in the pelvis. IMPRESSION: Single viable uterine fetus of 11-12 weeks gestational age as described above. Electronically signed by: Elliot Marshall MD (11/25/2018 10:52 AM) [facility] DICTATED and SIGNED BY: ELLIOT MARSHALL MD DATE: 11/25/18 1052 Course & Med Decision Making Course & Med Decision Making Pertinent Labs and Imaging studies reviewed. (See chart for details) This is a 23-year-old female patient presenting to the ED today with complaints of vaginal bleeding in as well as left lower quadrant abdominal pain. She is a 2 para 1 currently 10 weeks . Symptoms began a couple minutes prior to coming to the ED while having intercourse. CBC with a normal WBC, CMP with no acute findings. + hcg, Beta hcg 53,462. Urine analysis is noted for small amount of slough leukocytes, WBCs 5-10. Discharged on cephalexin. Blood group A+ done 2013. OB ultrasound noted for an IUP 10 weeks 4 days. Patient is in no distress. She was provided instructions to maintain pelvic rest including no intercourse until the bleeding has stopped and she has been seen by the TECHNICAL SALES ADVISOR. Requested her to contact the TECHNICAL SALES ADVISOR tomorrow or today and set up a follow-up appointment. Dragon Disclaimer Dragon Disclaimer This electronic medical record was generated, in whole or in part, using a voice recognition dictation system. Departure Departure Impression: Primary Impression: Threatened miscarriage Additional Impression: Urinary tract infection during Disposition: 01 HOME, SELF-CARE Condition: STABLE Referrals: UNKNOWN PCP NAME (PCP) HERNANDEZ MISHRA Jr, MD Call him today and set up a follow up appointment Patient Instructions: Threatened Miscarriage, [id number], Urinary Tract Infection Additional Instructions: You were evaluated in the emergency room for vaginal bleeding in with abdominal pain. You also have urinary tract infection, we put you on antibiotics, take them as prescribed until completed. Maintain bedrest/pelvic rest this includes no strenuous activities, no sexual intercourse or until seen by the TECHNICAL SALES ADVISOR. Call Dr. Mishra today and set up a follow up appointment. Scripts Cephalexin (CEPHALEXIN) 500 Mg Tablet 1 TAB PO BID, #14 TAB Prov: GIOVANNI STORM APRN 11/25/18 Problem Qualifiers Additional Impression: Urinary tract infection during Trimester: first trimester Qualified Codes: O23.41 - Unspecified infection of urinary tract in , first trimester GIOVANNI STORM APRN Nov 25, 2018 10:08
[2018-11-25 10:25] LABS: BASO # 0.1 x10^3/uL (0.0-0.2); BASO % 1 % (0-3); EOS # 0.1 x10^3/uL (0.0-0.7); EOS % 1 % (0-3); HEMATOCRIT 39.4 % (36.0-47.0); LYMPH % 32 % (24-48); MEAN CORPUSCULAR HEMOGLOBIN 30 pg (25-35); MEAN CORPUSCULAR HGB CONC 33 g/dL (31-37); MEAN CORPUSCULAR VOLUME 89 fL (79-100); MONO # 0.8 x10^3/uL (0.0-1.1); MONO % 8 % (0-9); NEUT # 5.6 x10^3uL (1.8-7.7); NEUT % 59 % (31-73); PLATELET COUNT 311 x10^3/uL (140-400); RED BLOOD COUNT 4.41 x10^6/uL (3.50-5.40); RED CELL DISTRIBUTION WIDTH 15.1 % (11.5-14.5); WHITE BLOOD COUNT 9.5 x10^3/uL (4.0-11.0)
[2018-11-25 10:38] LABS: CALCIUM 9.3 mg/dL (8.5-10.1); CREATININE 0.6 mg/dL (0.6-1.0); GFR 149.9; POTASSIUM 3.7 mmol/L (3.5-5.1)
[2018-11-25 10:44] LABS: ALBUMIN 3.3 g/dL (3.4-5.0); ALBUMIN/GLOBULIN RATIO 0.7 (1.0-1.7); TOTAL BILIRUBIN 0.3 mg/dL (0.2-1.0)
[2018-11-25 10:49] LABS: BARBITURATES NEG (NEG); BENZODIAZEPINES NEG (NEG); CANNABINOIDS NEG (NEG); COCAINE NEG (NEG); METHADONE NEG (NEG); OPIATES NEG (NEG); PHENCYCLIDINE NEG (NEG)
[2018-11-25 10:55] LABS: AMPHETAMINE/METHAMPHETAMINE NEG (NEG)
--- NOTE | 2018-11-25 10:55 | RAD ---
Obstetrical ultrasound, 11/25/2018: HISTORY: with bleeding Transabdominal scans were obtained. The uterus contains a single gestational sac. The gestational sac contains a pole demonstrating a crown-rump length of 3.6 cm. This suggests a gestational age of 10 weeks and 4 days yielding a sonographic EDC of 06/19/2019. There has been normal growth since 3 11/14/2018 exam. cardiac activity is present with a heart rate of 165 bpm. There is no evidence of subchorionic hemorrhage. The maternal ovaries are unremarkable. No adnexal mass is seen. No free fluid is evident in the pelvis. IMPRESSION: Single viable uterine fetus of 11-12 weeks gestational age as described above. Electronically signed by: Elliot Marshall MD (11/25/2018 10:52 AM) [facility]
[2018-11-25] MEDS ORDERED: CEPH500T PO (11:37)
[2018-11-28 15:15] LABS: GC PROBE Negative (Negative)
== END 2018-11-25 11:45 | disposition home or self-care (01) ==
LOC: ER 09:19
DX: O20.0 Threatened abortion (principal); O23.41 Unspecified infection of urinary tract in pregnancy, first trimester; O99.511 Diseases of the respiratory system complicating pregnancy, first trimester; J45.909 Unspecified asthma, uncomplicated; Z3A.10 10 weeks gestation of pregnancy; Z88.1 Allergy status to other antibiotic agents
CPT/HCPCS: 36415; 76801; 76817; 80053; 80307; 81001; 84702; 85025; 86850; 86900; 86901; 87491; 87591; 99285; G0480; Q0111

== ENCOUNTER → 2019-02-02 | Outpatient (CLI) | payer OTHER ==
[2019-01-22 16:20] VITALS: BP 132/73
[~2019-02-02] MED LIST changes: +ALBU2.5V8 INH; +CEPH500T PO
--- NOTE | 2019-02-02 18:00 | RAD ---
Examination: PREG MORE THAN OR EQ TO 14 WKS History: Uterine size and date discrepancy. Comparison/Correlation: 11/25/2018 OB ultrasound exam FINDINGS: Single living intrauterine gestation with cephalic lie is present with heart rate of 143 bpm. anatomy identified includes: Bladder, spine, bilateral lateral ventricles, stomach, heart, aorta, three-vessel cord insertion, bilateral kidneys, diaphragm, cerebellum, cisterna magna, bilateral upper extremities, and bilateral lower extremities. gender: Not determined due to positioning Maternal cervical length is 4.2 cm. Placenta is present at the posterior wall and is low-lying. No evidence of previa although the placenta is 1.5 cm from the cervical os. Amniotic fluid index of 14.8 is evident. Normal amount of amniotic fluid noted. Estimated weight is 358 g. measurements include: Biparietal diameter: 4.9 cm corresponding to 20 weeks 5 days. Femur length of 3.4 cm corresponding to 20 weeks 5 days. Head circumference of 17.9 cm corresponding to 20 weeks 2 days. Abdominal circumference of 15.1 cm corresponding to 20 weeks 3 days. Age by 4 parameters corresponds to 20 weeks 4 days. EDC by average age is 06/18/2019. Cephalic index of 86.7 is mildly above normal range. H/A ratio is 1.2. FL/BPD is 70. FL/ AC is 22.5. IMPRESSION: Single living intrauterine gestation with average ultrasound age corresponding to 20 weeks 4 days. Adequate interval growth is noted since the prior exam. Placenta is near the maternal cervical os. Electronically signed by: Christophe Collazo MD (02/02/2019 5:57 PM) [facility]
== END | disposition home or self-care (01) ==
LOC: US 14:42
PROVIDERS: ATTEND Obstetrics & Gynecology
DX: O26.842 Uterine size-date discrepancy, second trimester (principal); Z3A.20 20 weeks gestation of pregnancy
CPT/HCPCS: 76805

== ENCOUNTER 2019-02-20 13:13 | Observation (INO) | payer OTHER ==
[2019-01-22 16:20] VITALS: BP 132/73
[2019-02-20] MEDS ORDERED: IV RINGERS,LACTATED 1000ML 1,000 ML IV SCH (13:32)
[2019-02-20 13:43] LABS: BILIRUBIN,URINE NEGATIVE (NEG); CLARITY,URINE CLEAR; COLOR,URINE YELLOW; NITRITE,URINE NEGATIVE (NEG); PROTEIN,URINE NEGATIVE (NEG-TRACE)
[2019-02-20 13:53] LABS: BACTERIA,URINE FEW /HPF (0-FEW); RBC,URINE 0 /HPF (0-2); SQUAMOUS EPITHELIAL CELL,UR MANY /LPF; WBC,URINE >40 /HPF (0-4)
[2019-02-20] MEDS ORDERED: ACETAMINOPHEN 500 MG TABLET PO ONE (14:30)
== END 2019-02-20 16:18 | disposition home or self-care (01) ==
LOC: 3 SO LND 13:13
PROVIDERS: ADMIT Obstetrics & Gynecology; ATTEND Obstetrics & Gynecology
DX: O36.8120 Decreased fetal movements, second trimester, not applicable or unspecified (principal); O99.89 Other specified diseases and conditions complicating pregnancy, childbirth and the puerperium; M54.5 Low back pain; O26.892 Other specified pregnancy related conditions, second trimester; R51 Headache; Z3A.22 22 weeks gestation of pregnancy
CPT/HCPCS: 81001; 87086; G0378; G0379

== ENCOUNTER 2019-04-01 22:46 | Observation (INO) | payer OTHER ==
[2019-01-22 16:20] VITALS: BP 132/73
[2019-04-01] MEDS ORDERED: IV RINGERS,LACTATED 1000ML 1,000 ML IV SCH (23:00)
[2019-04-01 23:21] LABS: BILIRUBIN,URINE NEGATIVE (NEG); CLARITY,URINE CLEAR; COLOR,URINE YELLOW; NITRITE,URINE NEGATIVE (NEG); PH,URINE 6.5; PROTEIN,URINE NEGATIVE (NEG-TRACE); UROBILINOGEN,URINE 0.2 mg/dL (0.2 mg/dL)
[2019-04-01 23:29] LABS: BARBITURATES NEG (NEG); BENZODIAZEPINES NEG (NEG); CANNABINOIDS NEG (NEG); COCAINE NEG (NEG); METHADONE NEG (NEG); OPIATES NEG (NEG); PHENCYCLIDINE NEG (NEG)
[2019-04-01 23:30] LABS: BACTERIA,URINE MANY /HPF (0-FEW); RBC,URINE 0 /HPF (0-2); SQUAMOUS EPITHELIAL CELL,UR MANY /LPF
[2019-04-01 23:32] LABS: AMPHETAMINE/METHAMPHETAMINE NEG (NEG)
== END 2019-04-02 00:59 | disposition home or self-care (01) ==
LOC: 3 SO LND 22:46
PROVIDERS: ADMIT Obstetrics & Gynecology; ATTEND Obstetrics & Gynecology
DX: O62.9 Abnormality of forces of labor, unspecified (principal); Z3A.28 28 weeks gestation of pregnancy
CPT/HCPCS: 80307; 81001; 87086; G0378; G0379

== ENCOUNTER 2019-04-11 00:28 | Emergency (ER) | payer OTHER ==
[~2019-04-11] VITALS: Ht 162.6 cm; Wt 128.4 kg
--- NOTE | 2019-04-11 01:34 | NUR ---
to ER to check FHT on this patient. FHT were 150's for 2 minutes. Mom's pulse in 130's upon my arrival to room.
[2019-04-11] MEDS ORDERED: ONDANSETRON PF 4 MG/2 ML VIAL. IV ONE (01:45)
[2019-04-11] MEDS ORDERED: IV NORMAL SALINE 1000ML BAG 1,000 ML IV SCH (01:45)
[2019-04-11 01:48] LABS: BILIRUBIN,URINE SMALL (NEG); CLARITY,URINE CLOUDY; COLOR,URINE AMBER; NITRITE,URINE NEGATIVE (NEG); PH,URINE 5.5; PROTEIN,URINE 30 mg/dL (NEG-TRACE); UROBILINOGEN,URINE 0.2 mg/dL (0.2 mg/dL)
[2019-04-11 01:54] LABS: BACTERIA,URINE MANY /HPF (0-FEW); RBC,URINE OCC /HPF (0-2); SQUAMOUS EPITHELIAL CELL,UR MANY /LPF
[2019-04-11 01:55] LABS: BASO # 0.1 x10^3/uL (0.0-0.2); BASO % 1 % (0-3); EOS # 0.2 x10^3/uL (0.0-0.7); EOS % 1 % (0-3); HEMATOCRIT 36.4 % (36.0-47.0); HEMOGLOBIN 12.1 g/dL (12.0-15.5); LYMPH % 15 % (24-48); MEAN CORPUSCULAR HEMOGLOBIN 30 pg (25-35); MEAN CORPUSCULAR HGB CONC 33 g/dL (31-37); MEAN CORPUSCULAR VOLUME 90 fL (79-100); MONO # 1.1 x10^3/uL (0.0-1.1); MONO % 8 % (0-9); NEUT # 9.9 x10^3/uL (1.8-7.7); NEUT % 75 % (31-73); PLATELET COUNT 292 x10^3/uL (140-400); RED BLOOD COUNT 4.02 x10^6/uL (3.50-5.40); RED CELL DISTRIBUTION WIDTH 14.6 % (11.5-14.5); WHITE BLOOD COUNT 13.3 x10^3/uL (4.0-11.0)
[2019-04-11 02:03] LABS: CALCIUM 8.9 mg/dL (8.5-10.1); CREATININE 0.6 mg/dL (0.6-1.0); GFR 149.9; POTASSIUM 3.6 mmol/L (3.5-5.1)
[2019-04-11 02:08] LABS: ALBUMIN 2.7 g/dL (3.4-5.0); ALBUMIN/GLOBULIN RATIO 0.6 (1.0-1.7); TOTAL BILIRUBIN 0.4 mg/dL (0.2-1.0); TOTAL PROTEIN 7.6 g/dL (6.4-8.2)
--- NOTE | 2019-04-11 03:07 | PHYS DOC ---
Past Medical History Past Medical History: No Pertinent History, Asthma Past Surgical History: Other Additional Past Surgical Histo: wisdom teeth Alcohol Use: None Drug Use: None Adult General Chief Complaint Chief Complaint: sore throat HPI HPI Patient is a 23 year old female who presents with complaining of sore throat. Patient is at 30 weeks of gestation complaining of sore throat and fever associated with nasal congestion and cough for the last 3 days. Patient denies abdominal pain, vomiting and diarrhea, urinary symptoms, vaginal bleeding or discharge. Patient had heart rate of 128 and temperature of 99.2 at arrival to ER. Review of Systems Review of Systems Constitutional: Reports fever Eyes: Denies change in visual acuity, redness, or eye pain [] HENT: Reports nasal congestion and sore throat Respiratory: Denies shortness of breath, reports cough [] Cardiovascular: No additional information not addressed in HPI [] GI: Denies abdominal pain, vomiting, bloody stools or diarrhea [] : Denies dysuria or hematuria [] Musculoskeletal: Denies back pain or joint pain [] Integument: Denies rash or skin lesions [] Neurologic: Denies headache, focal weakness or sensory changes [] Endocrine: Denies polyuria or polydipsia [] All other systems were reviewed and found to be within normal limits, except as documented in this note. Current Medications Current Medications Current Medications Medications (Trade) Dose Ordered Sig/Alejandro Start Time Stop Time Status Last Admin Dose Admin Ondansetron HCl (Zofran) 4 mg 1X ONCE 04/11/19 01:45 04/11/19 01:46 DC 04/11/19 01:49 4 MG Sodium Chloride 1,000 ml @ 1,000 mls/hr Q1H 04/11/19 01:45 04/11/19 02:44 DC 04/11/19 01:49 1,000 MLS/HR Allergies Allergies Allergies Coded Allergies Type Severity Reaction Last Updated Verified No Known Drug Allergies 04/01/19 No Physical Exam Physical Exam Constitutional: Well developed, well nourished, mild distress, non-toxic appearance. [] HENT: Normocephalic, atraumatic, bilateral external ears normal, oropharynx moist, pharyngeal erythema, no oral exudates, nose normal. [] Eyes: PERRLA, EOMI, conjunctiva normal, no discharge. [] Neck: Normal range of motion, no tenderness, supple, no stridor. [] Cardiovascular: Tachycardia, no murmur [] Lungs & Thorax: Bilateral breath sounds clear to auscultation [] Abdomen: Bowel sounds normal, soft, no tenderness, no masses, no pulsatile masses, gravid abdomen without tenderness, heart rate 153. [] Skin: Warm, dry, no erythema, no rash. [] Back: No tenderness, no CVA tenderness. [] Extremities: No tenderness, no cyanosis, no clubbing, ROM intact, no edema. [] Neurologic: Alert and oriented X 3, normal motor function, normal sensory function, no focal deficits noted. [] Psychologic: Affect normal, judgement normal, mood normal. [] Current Patient Data Vital Signs Vital Signs Date Time Temp Pulse Resp B/P (MAP) Pulse Ox O2 Delivery O2 Flow Rate FiO2 04/11/19 03:34 99.3 117 20 110/54 (72) 96 Room Air 99.3 Lab Values Laboratory Tests Test 04/11/19 01:18 04/11/19 01:40 04/11/19 02:48 Urine Collection Type Unknown Urine Color Aubree Urine Clarity Cloudy Urine pH 5.5 Urine Specific [place] >=1.030 Urine Protein 30 mg/dL (NEG-TRACE) Urine Glucose (UA) Negative mg/dL (NEG) Urine Ketones (Stick) 15 mg/dL (NEG) Urine Blood Negative (NEG) Urine Nitrite Negative (NEG) Urine Bilirubin Small (NEG) Urine Urobilinogen Dipstick 0.2 mg/dL (0.2 mg/dL) Urine Leukocyte Esterase Moderate (NEG) Urine RBC Occ /HPF (0-2) Urine WBC 5-10 /HPF (0-4) Urine Squamous Epithelial Cells Many /LPF Urine Bacteria Many /HPF (0-FEW) Urine Mucus Marked /LPF White Blood Count 13.3 x10^3/uL (4.0-11.0) H Red Blood Count 4.02 x10^6/uL (3.50-5.40) Hemoglobin 12.1 g/dL (12.0-15.5) Hematocrit 36.4 % (36.0-47.0) Mean Corpuscular Volume 90 fL (79-100) Mean Corpuscular Hemoglobin 30 pg (25-35) Mean Corpuscular Hemoglobin Concent 33 g/dL (31-37) Red Cell Distribution Width 14.6 % (11.5-14.5) H Platelet Count 292 x10^3/uL (140-400) Neutrophils (%) (Auto) 75 % (31-73) H Lymphocytes (%) (Auto) 15 % (24-48) L Monocytes (%) (Auto) 8 % (0-9) Eosinophils (%) (Auto) 1 % (0-3) Basophils (%) (Auto) 1 % (0-3) Neutrophils # (Auto) 9.9 x10^3/uL (1.8-7.7) H Lymphocytes # (Auto) 2.0 x10^3/uL (1.0-4.8) Monocytes # (Auto) 1.1 x10^3/uL (0.0-1.1) Eosinophils # (Auto) 0.2 x10^3/uL (0.0-0.7) Basophils # (Auto) 0.1 x10^3/uL (0.0-0.2) Sodium Level 139 mmol/L (136-145) Potassium Level 3.6 mmol/L (3.5-5.1) Chloride Level 101 mmol/L (98-107) Carbon Dioxide Level 24 mmol/L (21-32) Anion Gap 14 (6-14) Blood Urea Nitrogen 4 mg/dL (7-20) L Creatinine 0.6 mg/dL (0.6-1.0) Estimated GFR (Cockcroft-Gault) 149.9 BUN/Creatinine Ratio 7 (6-20) Glucose Level 96 mg/dL (70-99) Lactic Acid Level 0.9 mmol/L (0.4-2.0) Calcium Level 8.9 mg/dL (8.5-10.1) Total Bilirubin 0.4 mg/dL (0.2-1.0) Aspartate Amino Transferase (AST) 14 U/L (15-37) L Alanine Aminotransferase (ALT) 10 U/L (14-59) L Alkaline Phosphatase 108 U/L (46-116) Total Protein 7.6 g/dL (6.4-8.2) Albumin 2.7 g/dL (3.4-5.0) L Albumin/Globulin Ratio 0.6 (1.0-1.7) L Influenza Type A Antigen Negative (NEGATIVE) Influenza Type B Antigen Negative (NEGATIVE) Laboratory Tests 04/11/19 01:40 Laboratory Tests 04/11/19 01:40 EKG EKG EKG interpreted by me. EKG at 0.57 showed sinus tachycardia at rate of 121, T- wave abnormality in inferior leads, no acute ST and T-wave abnormalities. Radiology/Procedures Radiology/Procedures [] Course & Med Decision Making Course & Med Decision Making Pertinent Labs reviewed. (See chart for details) Evaluation of patient in ER showed 23-year-old female patient at 3 weeks of gestation complaining of fever and URI symptom. Patient had tachycardia and treated with IV fluids with improvement of tachycardia. Patient had negative lactic acid. White count was 13,000 that could be related to change of . UA showed UTI. Plan discharge patient home to diagnose of viral upper respiratory infection and UTI. Dragon Disclaimer Dragon Disclaimer This electronic medical record was generated, in whole or in part, using a voice recognition dictation system. Departure Departure Impression: Primary Impression: Viral upper respiratory infection Additional Impressions: Urinary tract infection during Currently Tachycardia Disposition: 01 HOME, SELF-CARE (at 0 330) Condition: IMPROVED Referrals: MARQUEZ VASQUEZ APRN (PCP) Patient Instructions: Fever, Adult, - Urinary Tract Infection, Upper Respiratory Infection, Adult Additional Instructions: Drink plenty of liquids Follow-up with your primary care physician in 3-5 days Return to ER if not getting better Take 1000 mg of Tylenol every 6 hours as needed for fever and pain Follow-up with your [facility] doctor as needed Scripts Cephalexin (KEFLEX) 500 Mg Capsule 2 CAP PO Q12HR, #28 CAP Prov: LIBAN SANTIAGO MD 04/11/19 Problem Qualifiers Additional Impressions: Urinary tract infection during Trimester: third trimester Qualified Codes: O23.43 - Unspecified infection of urinary tract in , third trimester Currently Weeks of gestation: 30 weeks Qualified Codes: Z3A.30 - 30 weeks gestation of LIBAN SANTIAGO MD Apr 11, 2019 03:07
[2019-04-11 03:15] LABS: INFLUENZA A PATIENT NEGATIVE (NEGATIVE); INFLUENZA B PATIENT NEGATIVE (NEGATIVE)
[2019-04-11] MEDS ORDERED: CEPH-264 PO (03:30)
[2019-04-11 03:34] VITALS: BP 110/54
--- NOTE | 2019-04-11 07:22 | EKG ---
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
== END 2019-04-11 03:41 | disposition home or self-care (01) ==
LOC: ER 00:33
DX: O26.893 Other specified pregnancy related conditions, third trimester (principal); J06.9 Acute upper respiratory infection, unspecified; B97.89 Other viral agents as the cause of diseases classified elsewhere; O23.43 Unspecified infection of urinary tract in pregnancy, third trimester; O99.513 Diseases of the respiratory system complicating pregnancy, third trimester; J45.909 Unspecified asthma, uncomplicated; R00.0 Tachycardia, unspecified; Z3A.30 30 weeks gestation of pregnancy
CPT/HCPCS: 36415; 80053; 81001; 83605; 85025; 87040; 87070; 87086; 87804; 87880; 93005; 96374; 99285; J2405; J7030

== ENCOUNTER 2019-05-04 08:25 | Observation (INO) | payer OTHER ==
[2019-05-04] MEDS ORDERED: IV RINGERS,LACTATED 1000ML 1,000 ML IV SCH (08:30)
[2019-05-04 09:03] LABS: BARBITURATES NEG (NEG); BENZODIAZEPINES NEG (NEG); CANNABINOIDS NEG (NEG); COCAINE NEG (NEG); METHADONE NEG (NEG); OPIATES NEG (NEG); PHENCYCLIDINE NEG (NEG)
[2019-05-04 09:04] LABS: AMPHETAMINE/METHAMPHETAMINE NEG (NEG)
[2019-05-04 09:28] LABS: BILIRUBIN,URINE NEGATIVE (NEG); CLARITY,URINE TURBID; COLOR,URINE YELLOW
[2019-05-04 09:32] LABS: BACTERIA,URINE MODERATE /HPF (0-FEW); NITRITE,URINE NEGATIVE (NEG); PROTEIN,URINE 100 mg/dL (NEG-TRACE); UROBILINOGEN,URINE 0.2 mg/dL (0.2 mg/dL); WBC,URINE >40 /HPF (0-4)
[2019-05-04 09:33] LABS: SQUAMOUS EPITHELIAL CELL,UR MANY /LPF
== END 2019-05-04 09:52 | disposition home or self-care (01) ==
LOC: 3 SO LND 08:25
PROVIDERS: ADMIT Obstetrics & Gynecology; ATTEND Obstetrics & Gynecology
DX: O9A.213 Injury, poisoning and certain other consequences of external causes complicating pregnancy, third trimester (principal); O99.513 Diseases of the respiratory system complicating pregnancy, third trimester; J45.909 Unspecified asthma, uncomplicated; Z3A.33 33 weeks gestation of pregnancy; Y04.8XXA Assault by other bodily force, initial encounter; Y93.9 Activity, unspecified; Y92.9 Unspecified place or not applicable; Y99.9 Unspecified external cause status
CPT/HCPCS: 80307; 81001; 87086; G0378; G0379

== ENCOUNTER 2019-05-17 19:31 | Inpatient (IN) | payer OTHER ==
[~2019-05-17] VITALS: Ht 162.6 cm; Wt 123.8 kg
[2019-05-17] MEDS: IV RINGERS,LACTATED 1000ML 1,000 ML IV SCH (19:37)
[2019-05-17 20:15] LABS: BILIRUBIN,URINE NEGATIVE (NEG); CLARITY,URINE CLEAR; COLOR,URINE YELLOW; NITRITE,URINE NEGATIVE (NEG); PH,URINE 6.5; PROTEIN,URINE NEGATIVE (NEG-TRACE); UROBILINOGEN,URINE 0.2 mg/dL (0.2 mg/dL)
[2019-05-17 20:20] LABS: BACTERIA,URINE 0 /HPF (0-FEW); SQUAMOUS EPITHELIAL CELL,UR FEW /LPF
[2019-05-17 20:21] LABS: BARBITURATES NEG (NEG); BENZODIAZEPINES NEG (NEG); CANNABINOIDS NEG (NEG); COCAINE NEG (NEG); METHADONE NEG (NEG); OPIATES NEG (NEG); PHENCYCLIDINE NEG (NEG)
[2019-05-17 20:27] LABS: AMPHETAMINE/METHAMPHETAMINE NEG (NEG)
[2019-05-17] MEDS: ALBUTEROL SULFATE 2.5 MG/3 ML NEBU. NEB PRN (21:01)
[2019-05-17] MEDS: IV DEXTROSE 5%-LACT RINGERS 1,000 ML IV SCH (21:14)
[2019-05-17] MEDS: ACETAMINOPHEN 500 MG TABLET PO PRN (21:15)
[2019-05-17] MEDS: AMPICILLIN SODIUM 2 GM in IV NORMAL SALINE 100ML 100 ML IV SCH (21:17)
[2019-05-18] MEDS: IV RINGERS,LACTATED 1000ML 1,000 ML IV SCH ×3 (03:37→19:37)
[2019-05-18] MEDS: ACETAMINOPHEN 500 MG TABLET PO PRN (05:33)
[2019-05-18] MEDS: AMPICILLIN SODIUM 2 GM in IV NORMAL SALINE 100ML 100 ML IV SCH (05:34)
[2019-05-18] MEDS: ALBUTEROL SULFATE 2.5 MG/3 ML NEBU. NEB PRN ×3 (05:44→16:53)
[2019-05-18] MEDS: IV DEXTROSE 5%-LACT RINGERS 1,000 ML IV SCH ×4 (06:16→19:37)
--- NOTE | 2019-05-18 08:39 | PDOC ---
GENERAL General: 23 yrs old lady admitted second time for [id number] degrees, cough, headaches Pt has Respiratory Infection. VITAL SIGNS Vital Signs/I&O: Vital Signs Date Time Temp Pulse Resp B/P (MAP) Pulse Ox O2 Delivery O2 Flow Rate FiO2 05/18/19 05:44 Room Air ALLERGIES Allergies: Allergies Coded Allergies Type Severity Reaction Last Updated Verified No Known Drug Allergies 04/01/19 No MEDS Medications: Current Medications Medications (Trade) Dose Ordered Sig/Alejandro Route PRN Reason Start Time Stop Time Status Last Admin Dose Admin Dextrose/Lactated Ringer's 1,000 ml @ 125 mls/hr Q8H IV 05/17/19 20:30 05/18/19 06:16 Ampicillin Sodium 2 gm/Sodium Chloride 100 ml @ 200 mls/hr Q8HRS IV 05/17/19 22:00 05/18/19 05:34 Acetaminophen (Tylenol) 1,000 mg PRN Q6HRS PRN PO FEVER 05/17/19 20:30 05/18/19 05:33 Albuterol Sulfate (Ventolin Neb Soln) 2.5 mg PRN Q4HRS PRN NEB SHORTNESS OF BREATH 05/17/19 20:30 05/18/19 05:44 LAB Lab: Laboratory Tests Test 05/17/19 20:00 Urine Collection Type Unknown Urine Color Yellow Urine Clarity Clear Urine pH 6.5 Urine Specific [place] 1.015 Urine Protein Negative mg/dL (NEG-TRACE) Urine Glucose (UA) Negative mg/dL (NEG) Urine Ketones (Stick) Trace mg/dL (NEG) Urine Blood Small (NEG) Urine Nitrite Negative (NEG) Urine Bilirubin Negative (NEG) Urine Urobilinogen Dipstick 0.2 mg/dL (0.2 mg/dL) Urine Leukocyte Esterase Small (NEG) Urine RBC 3-5 /HPF (0-2) Urine WBC 11-20 /HPF (0-4) Urine Squamous Epithelial Cells Few /LPF Urine Bacteria 0 /HPF (0-FEW) Urine Mucus Mod /LPF Urine Opiates Screen Neg (NEG) Urine Methadone Screen Neg (NEG) Urine Barbiturates Neg (NEG) Urine Phencyclidine Screen Neg (NEG) Urine Amphetamine/Methamphetamine Neg (NEG) Urine Benzodiazepines Screen Neg (NEG) Urine Cocaine Screen Neg (NEG) Urine Cannabinoids Screen Neg (NEG) Urine Ethyl Alcohol Neg (NEG) ASSESSMENT & PLAN A&P Patient is 35 weeks with URI. On Antibiotics and Respiratory therapy. Patient still has cough and headaches. Will get Consultation from Infectious Disease Specialist. FABRICIO COLLADO MD May 18, 2019 08:39
[2019-05-18] MEDS ORDERED: AZITHRMYCN 500MG IVPB FOR OMNI 250 ML IV ONE (13:30)
--- NOTE | 2019-05-18 13:51 | PDOC ---
Infectious Disease Note Vital Sign Vital Signs Vital Signs Date Time Temp Pulse Resp B/P (MAP) Pulse Ox O2 Delivery O2 Flow Rate FiO2 05/18/19 05:44 Room Air Labs Lab Laboratory Tests Test 05/17/19 20:00 Urine Collection Type Unknown Urine Color Yellow Urine Clarity Clear Urine pH 6.5 Urine Specific [place] 1.015 Urine Protein Negative mg/dL (NEG-TRACE) Urine Glucose (UA) Negative mg/dL (NEG) Urine Ketones (Stick) Trace mg/dL (NEG) Urine Blood Small (NEG) Urine Nitrite Negative (NEG) Urine Bilirubin Negative (NEG) Urine Urobilinogen Dipstick 0.2 mg/dL (0.2 mg/dL) Urine Leukocyte Esterase Small (NEG) Urine RBC 3-5 /HPF (0-2) Urine WBC 11-20 /HPF (0-4) Urine Squamous Epithelial Cells Few /LPF Urine Bacteria 0 /HPF (0-FEW) Urine Mucus Mod /LPF Urine Opiates Screen Neg (NEG) Urine Methadone Screen Neg (NEG) Urine Barbiturates Neg (NEG) Urine Phencyclidine Screen Neg (NEG) Urine Amphetamine/Methamphetamine Neg (NEG) Urine Benzodiazepines Screen Neg (NEG) Urine Cocaine Screen Neg (NEG) Urine Cannabinoids Screen Neg (NEG) Urine Ethyl Alcohol Neg (NEG) Micro IMPRESSION: 1. The study is severely limited for detection of pulmonary emboli due to a combination of patient body habitus and extensive respiratory motion. Particularly at the bilateral lower lobes, right middle lobe and lingula, the segmental and subsegmental vessels are not evaluated. No saddle embolism or main pulmonary artery embolism is present. No main pulmonary artery dilatation or findings of right heart strain. 2. Consolidation within the right middle lobe extending along the bronchovascular structures to the pleura at the posterior/medial aspect. This is concerning for pneumonia given the configuration and would be somewhat atypical for a pulmonary infarct but the latter is not entirely excluded as the pulmonary arteries to this region are not well evaluated. Recommend correlation for any symptoms or laboratory findings that would suggest an underlying infection. 3. Several prominent lymph nodes such as at the right hilum and right infrahilar region are indeterminant and may be reactive to an underlying infection. Also noted is soft tissue fullness at the anterior mediastinum. There is no mass effect on the adjacent vasculature and this could represent residual thymic tissue but patient body habitus and motion make it difficult to discern if there is intermixed fat. It is recommended that follow-up be performed to confirm stability of this finding and the lymph nodes as well as DrJuana resolution of the right lower lobe finding. 4. Mildly prominent spleen. The liver appears to be somewhat prominent as well. Objective Assessment Fever 102 on admit R pneumonia failed Doxy/Bactrim previous Azithromycin/Rocephin/Soulmedrol 35 weeks Sore throat Asthma ? residual Thymus on ct Plan Plan of Care Stop amp Dose Vanc/Cefepime/Azithromycin - Need to cover MRSA and potential Pseudomonas as well Pulm eval Blood cults times 2 CMP/CBC with diff/Procal Sputum cult Mycoplasma/legionella/Strep antigen/Group A strep screen/TSH Lower Ext dopplers Labs in the am D/w [facility] cults blood cults/strep neg and flu neg in August D/w Dr. Hensley D/w pharmacy Thank you # [id number] KIKO SANCHEZ MD May 18, 2019 13:51
--- NOTE | 2019-05-18 14:16 | PDOC1 ---
History and Physical Date of Admission Date of Admission DATE: 05/18/19 TIME: 14:12 Identification/Chief Complaint Chief Complaint Shortness of breath Source Source: Patient History of Present Illness History of Present Illness Ms Mccrary is a 23yo F w/ PMHx asthma, migraines and 35 weeks who c/o shortness of breath. Patient states she has history of asthma she's been short of breath for the past week with minimal productive cough however developed chest pain on 05/15/19 in the afternoon. Afebrile 99.9F on exam at that time, she does have positive movement. No history of clots. SOB with exertion and difficulty with deep inspiration. She returned today with [id number] degrees, cough, headaches. She was treated outpatient with doxycycline and bactrim after d/w ID, and failed outpatient treatment. Abnormal UA, though had urine culture negative from 05/15/19, white blood cell count 9.9, hemoglobin 12.4. Patient's initial presentation without significant evidence of wheeze was concern for PE as she was also significantly tachycardic with elevated d-dimer and subsequently underwent CTPA without evidence of acute PE. She does have evidence of right middle lobe infiltrate, however, and was initially admitted to OB floor, and given that she is not in active labor and has reassuring heart sounds I have d/w ID and pulmonology to take her onto medical service for further treatment. Past Medical History Pulmonary: Asthma Past Surgical History Past Surgical History: Other (wisdom teeth removal) Family History Family History: No Significant Social History Smoke: No ALCOHOL: none Drugs: None Current Medications Current Medications Current Medications Ringer's Solution 1,000 ml @ 125 mls/hr Q8H IV ; Start 05/17/19 at 19:37 Dextrose/Lactated Ringer's 1,000 ml @ 125 mls/hr Q8H IV Last administered on 05/18/19at 06:16; Start 05/17/19 at 20:30 Ampicillin Sodium 2 gm/Sodium Chloride 100 ml @ 200 mls/hr Q8HRS IV Last administered on 05/18/19at 05:34; Start 05/17/19 at 22:00; Stop 05/18/19 at 13:39; Status DC Acetaminophen (Tylenol) 1,000 mg PRN Q6HRS PRN PO FEVER Last administered on 05/18/19at 05:33; Start 05/17/19 at 20:30 Albuterol Sulfate (Ventolin Neb Soln) 2.5 mg PRN Q4HRS PRN NEB SHORTNESS OF BREATH Last administered on 05/18/19at 13:28; Start 05/17/19 at 20:30 Vancomycin HCl (Vanco Per Pharmacy) 1 each PRN DAILY PRN MC SEE COMMENTS; Start 05/18/19 at 13:30; Status UNV Cefepime HCl (Maxipime) 2 gm Q8HRS IVP ; Start 05/18/19 at 14:00 Azithromycin 250 ml @ 250 mls/hr 1X ONCE IV ; Start 05/18/19 at 13:30; Stop 05/18/19 at 14:29 Active Scripts Active Proair Hfa Inhaler (Albuterol Sulfate) 8.5 Gm Hfa.aer.ad 2 Puff INH PRN Q6HRS PRN 30 Days Proair Respiclick (Albuterol Sulfate) 90 Mcg Aer.pow.ba 1 Puff IH PRN Q6HRS PRN Reported Prenatabs Rx Tablet ( Vit #76/Iron,Carb/Fa) 1 Each Tablet 1 Tab PO DAILY Allergies Allergies: Coded Allergies: No Known Drug Allergies (Unverified , 04/01/19) ROS General: YES: Chills, Fatigue, Malaise; No: Night Sweats, Appetite, Other PSYCHOLOGICAL ROS: YES: Anxiety; No: Behavioral Disorder, Concentration difficultie, Decreased libido, Depression, Disorientation, Hallucinations, Hostility, Irritablity, Memory difficulties, Mood Swings, Obsessive thoughts, Physical abuse, Sexual abuse, Sleep disturbances, Suicidal ideation, Other Eyes: No Blurry vision, No Decreased vision, No Double vision, No Dry eyes, No Excessive tearing, No Eye Pain, No Itchy Eyes, No Loss of vision, No Photophobia, No Scotomata, No Uses contacts, No Uses glasses, No Other HEENT: YES: Heacaches; No: Visual Changes, Hearing change, Nasal congestion, Nasal discharge, Oral l esions, Sinus pain, Sore Throat, Epistaxis, Sneezing, Snoring, Tinnitus, Vertigo, Vocal changes, Other ALLERGY AND IMMUNOLOGY: No: Hives, Insect Bite Sensitivity, Itchy/Watery Eyes, Nasal Congestion, Post Nasal Drip, Seasonal Allergies, Other Hematological and Lymphatic: No: Bleeding Problems, Blood Clots, Blood Transfusions, Brusing, Night Sweats, Pallor, Swollen Lymph Nodes, Other ENDOCRINE: No: Breast Changes, Galactorrhea, Hair Pattern Changes, Hot Flashes, Malaise/lethargy, Mood Swings, Palpitations, Polydipsia/polyuria, Skin Changes, Temperature Intolerance, Unexpected Weight Changes, Other Breast: No New/Changing Breast Lumps, No Nipple changes, No Nipple discharge, No Other Respiratory: YES: Cough, Shortness of breath, SOB with excertion, Tachypnea; No: Hemoptysis, Orthopnea, Pleuritic Pain, Sputum Changes, Stridor, Wheezing, Other Cardiovascular: No Chest Pain, No Palpitations, No Orthopnea, No Paroxysmal Noc. Dyspnea, No Edema, No Lt Headedness, No Other Gastrointestinal: No Nausea, No Vomiting, No Abdominal Pain, No Diarrhea, No Constipation, No Melena, No Hematochezia, No Other Genitourinary: No Dysuria, No Frequency, No Incontinence, No Hematuria, No Retention, No Discharge, No Urgency, No Pain, No Flank Pain, No Other, No , No , No , No , No , No , No Musculoskeletal: No Gait Disturbance, No Joint Pain, No Joint Stiffness, No Joint Swelling, No Muscle Pain, No Muscular Weakness, No Pain In:, No Swelling In:, No Other Neurological: No Behavorial Changes, No Bowel/Bladder ControlChng, No Confusion, No Dizziness, No Gait Disturbance, No Headaches, No Impaired Coord/balance, No Memory Loss, No Numbness/Tingling, No Seizures, No Speech Problems, No Tremors, No Visual Changes, No Weakness, No Other Skin: No Dry Skin, No Eczema, No Hair Changes, No Lumps, No Mole Changes, No Mottling, No Nail Changes, No Pruritus, No Rash, No Skin Lesion Changes, No Other, No Acne Physical Exam General: Alert, Oriented X3, Cooperative, mild distress HEENT: Atraumatic, PERRLA, EOMI, Mucous membr. moist/pink Lungs: Other (No wheezing, slight rhonchi on right) Abdomen: Normal bowel sounds, Soft, No tenderness, No hepatosplenomegaly, No masses Rectal Exam: not examined Extremities: No clubbing, No cyanosis, No edema, Normal pulses, No tenderness/swelling Skin: No rashes, No breakdown, No significant lesion Neuro: Normal gait, Normal speech, Strength at 5/5 X4 ext, Normal tone, Sensation intact, Cranial nerves 3-12 NL, Reflexes 2+ Psych/Mental Status: Mental status NL, Mood NL Vitals Vitals Vital Signs Date Time Temp Pulse Resp B/P (MAP) Pulse Ox O2 Delivery O2 Flow Rate FiO2 05/18/19 13:29 Room Air Labs Labs Laboratory Tests Test 05/17/19 20:00 Urine Collection Type Unknown Urine Color Yellow Urine Clarity Clear Urine pH 6.5 Urine Specific [place] 1.015 Urine Protein Negative mg/dL (NEG-TRACE) Urine Glucose (UA) Negative mg/dL (NEG) Urine Ketones (Stick) Trace mg/dL (NEG) Urine Blood Small (NEG) Urine Nitrite Negative (NEG) Urine Bilirubin Negative (NEG) Urine Urobilinogen Dipstick 0.2 mg/dL (0.2 mg/dL) Urine Leukocyte Esterase Small (NEG) Urine RBC 3-5 /HPF (0-2) Urine WBC 11-20 /HPF (0-4) Urine Squamous Epithelial Cells Few /LPF Urine Bacteria 0 /HPF (0-FEW) Urine Mucus Mod /LPF Urine Opiates Screen Neg (NEG) Urine Methadone Screen Neg (NEG) Urine Barbiturates Neg (NEG) Urine Phencyclidine Screen Neg (NEG) Urine Amphetamine/Methamphetamine Neg (NEG) Urine Benzodiazepines Screen Neg (NEG) Urine Cocaine Screen Neg (NEG) Urine Cannabinoids Screen Neg (NEG) Urine Ethyl Alcohol Neg (NEG) Laboratory Tests Test 05/17/19 20:00 Urine Collection Type Unknown Urine Color Yellow Urine Clarity Clear Urine pH 6.5 Urine Specific [place] 1.015 Urine Protein Negative mg/dL (NEG-TRACE) Urine Glucose (UA) Negative mg/dL (NEG) Urine Ketones (Stick) Trace mg/dL (NEG) Urine Blood Small (NEG) Urine Nitrite Negative (NEG) Urine Bilirubin Negative (NEG) Urine Urobilinogen Dipstick 0.2 mg/dL (0.2 mg/dL) Urine Leukocyte Esterase Small (NEG) Urine RBC 3-5 /HPF (0-2) Urine WBC 11-20 /HPF (0-4) Urine Squamous Epithelial Cells Few /LPF Urine Bacteria 0 /HPF (0-FEW) Urine Mucus Mod /LPF Urine Opiates Screen Neg (NEG) Urine Methadone Screen Neg (NEG) Urine Barbiturates Neg (NEG) Urine Phencyclidine Screen Neg (NEG) Urine Amphetamine/Methamphetamine Neg (NEG) Urine Benzodiazepines Screen Neg (NEG) Urine Cocaine Screen Neg (NEG) Urine Cannabinoids Screen Neg (NEG) Urine Ethyl Alcohol Neg (NEG) Images Images CTPA - 1. The study is severely limited for detection of pulmonary emboli due to a combination of patient body habitus and extensive respiratory motion. Particularly at the bilateral lower lobes, right middle lobe and lingula, the segmental and subsegmental vessels are not evaluated. No saddle embolism or main pulmonary artery embolism is present. No main pulmonary artery dilatation or findings of right heart strain. 2. Consolidation within the right middle lobe extending along the bronchovascular structures to the pleura at the posterior/medial aspect. This is concerning for pneumonia given the configuration and would be somewhat atypical for a pulmonary infarct but the latter is not entirely excluded as the pulmonary arteries to this region are not well evaluated. Recommend correlation for any symptoms or laboratory findings that would suggest an underlying infection. 3. Several prominent lymph nodes such as at the right hilum and right infrahilar region are indeterminant and may be reactive to an underlying infection. Also noted is soft tissue fullness at the anterior mediastinum. There is no mass effect on the adjacent vasculature and this could represent residual thymic tissue but patient body habitus and motion make it difficult to discern if there is intermixed fat. It is recommended that follow-up be performed to confirm stability of this finding and the lymph nodes as well as Dr. resolution of the right lower lobe finding. 4. Mildly prominent spleen. The liver appears to be somewhat prominent as well. VTE Prophylaxis Ordered VTE Prophylaxis Devices: No VTE Pharmacological Prophylaxi: No Assessment/Plan Assessment/Plan A/P: Shortness of breath - likely asthma, , and pneumonia related. Will treat. ID and Pulm following as well Hypoxia - likely from pneumonia, will wean as tolerated. IS, ambulate Right middle lobe infiltrate - failed outpatient doxycycline, bactrim, azithromycin, and rocephin. Should be on azithromycin for atypical coverage and agree with cefepime after d/w ID Sepsis - with fever 102F, tachycardia, blood cultures x2, sputum culture, legionella and mycoplasma. Procalcitonin 35 weeks - paper handler following Sore throat - cepacol Asthma - nebulizers, pulmicort BID, wean O2 as tolerated. Consulted pulmonology FEN - General diet PPX - SCDs FULL CODE Dispo - inpatient for pneumonia failing outpatient therapy. ZAINAB CORTEZ MD May 18, 2019 14:16
[2019-05-18 14:38] LABS: BASO % 1 % (0-3); EOS # 0.1 x10^3/uL (0.0-0.7); EOS % 1 % (0-3); HEMATOCRIT 35.1 % (36.0-47.0); HEMOGLOBIN 11.6 g/dL (12.0-15.5); LYMPH % 17 % (24-48); MEAN CORPUSCULAR HEMOGLOBIN 29 pg (25-35); MEAN CORPUSCULAR HGB CONC 33 g/dL (31-37); MEAN CORPUSCULAR VOLUME 89 fL (79-100); MONO # 0.5 x10^3/uL (0.0-1.1); MONO % 9 % (0-9); NEUT # 4.5 x10^3/uL (1.8-7.7); NEUT % 73 % (31-73); PLATELET COUNT 287 x10^3/uL (140-400); RED BLOOD COUNT 3.97 x10^6/uL (3.50-5.40); RED CELL DISTRIBUTION WIDTH 14.9 % (11.5-14.5); WHITE BLOOD COUNT 6.1 x10^3/uL (4.0-11.0)
[2019-05-18] MEDS ORDERED: VANCOMYCIN 2 GM in IV NORMAL SALINE 500ML BAG 500 ML IV ONE (15:00)
[2019-05-18 15:05] LABS: ALBUMIN 2.5 g/dL (3.4-5.0); ALBUMIN/GLOBULIN RATIO 0.5 (1.0-1.7); CREATININE 0.7 mg/dL (0.6-1.0); GFR 125.5; POTASSIUM 4.2 mmol/L (3.5-5.1); TOTAL BILIRUBIN 0.4 mg/dL (0.2-1.0); TOTAL PROTEIN 7.5 g/dL (6.4-8.2)
[2019-05-18] MEDS ORDERED: ALBUTEROL SULFATE 2.5 MG/3 ML NEBU. NEB PRN (16:00)
[2019-05-18] MEDS: CEFEPIME HCL IV Push 2 GM VIAL. IVP SCH ×2 (16:51→23:31)
--- NOTE | 2019-05-18 18:20 | RAD ---
LEFT LEG VENOUS DOPPLER STUDY: Clinical indications: Left leg swelling and pain. Shortness of air. Findings: Duplex sonography (including sykes scale evaluation and color flow and waveform spectral analysis) of the proximal aspect of the greater saphenous vein and the proximal aspect of the profunda femoral vein and the entire length of the common femoral and superficial femoral and popliteal veins and the tibioperoneal trunk and the proximal aspect of the posterior tibial and peroneal veins of the left leg was performed. Normal compressibility, augmentation of color Doppler flow after calf compression, and respiratory variation of Doppler flow is seen. Thus, there are no sonographic findings of deep venous thrombosis within these veins. Impression: There are no sonographic findings of deep venous thrombosis within the veins discussed above of the left lower extremity. RIGHT LEG VENOUS DOPPLER STUDY: Clinical indications: Right leg swelling and pain. Shortness of air. Findings: Duplex sonography (including sykes scale evaluation and color flow and waveform spectral analysis) of the proximal aspect of the greater saphenous vein and proximal aspect of the profunda femoral vein and the entire length of the common femoral and superficial femoral and popliteal veins and the tibioperoneal trunk and the proximal aspect of the posterior tibial and peroneal veins of the right leg was performed. Normal compressibility, augmentation of color Doppler flow after calf compression, and respiratory variation of Doppler flow is seen. Thus, there are no sonographic findings of deep venous thrombosis within these veins. Impression: There are no sonographic findings of deep venous thrombosis within the veins discussed above of the right lower extremity. Electronically signed by: Sven Arredondo MD (05/18/2019 6:17 PM) [facility]
[2019-05-18 19:05] VITALS: BP 153/81
[2019-05-18] MEDS: VANCOMYCIN PER PHARMACY MC PRN ×2 (19:06→19:18)
--- NOTE | 2019-05-18 19:19 | NUR ---
Pharmacy Vancomycin Dosing Note S:Consulted to monitor and dose vancomycin started 05/18/19. O:JOSÉSEPTEMBER is a 23 year old F with Pneumonia /MRSA/PSEUDOMONAS . FAILED DOXYCYCLINE/BACTRIM Height: 5 feet, 4 inches Weight: 123.440485 kg [place] Body Weight: 54.70 Adjusted Body Weight: 82.34 Dosing Weight: Actual Other Antibiotics: CEFEPIME 2GM Q8HRS LABS: Last BUN: 5 Last Creatinine: 0.7 Creatinine Clearance: 162 mL/min Last WBC: 6.1 Last Procalcitonin: 0.1 Tmax (past 24 hours): 102 Microbiology: I/O: Drug Levels: Last level: on at Last dose given 05/18/19 at 2000 Vancomycin Dosing: Loading Dose: 2000 mg x1 Dosing Weight: Actual Target Trough: 15-20 A: Based on: WEIGHT AND RENAL FUNCTION, VANCOMYCIN 2GM IV BOLUS X1; THEN P: 1. Begin Vancomycin 1250 mg IV q8h 2. Follow up Trough level on 05/19/19 at 1930 3. Pharmacy will continue to monitor, follow and adjust therapy as needed. MARTA MEJIA [facility], 05/18/19 1920
[2019-05-18 19:26] LABS: MYCOPLASMA PATIENT POSITIVE (NEGATIVE)
[2019-05-18] MEDS: methylPREDNISolone SOD SUCC PF 125 MG/2 ML VIAL. IV SCH ×2 (19:37→23:31)
[2019-05-18] MEDS: BUDESONIDE 0.5 MG/2 ML NEBU. NEB SCH (20:00)
[2019-05-18] MEDS: ALBUTEROL SULFATE 2.5 MG/3 ML NEBU. NEB SCH (20:16)
[2019-05-18] MEDS ORDERED: BENZOCAINE/MENTHOL LOZENGE. PO PRN (21:45)
[2019-05-18 23:05] VITALS: BP 140/84
[2019-05-19] MEDS: ACETAMINOPHEN 500 MG TABLET PO PRN (00:15)
[2019-05-19] MEDS: IV RINGERS,LACTATED 1000ML 1,000 ML IV SCH ×3 (00:35→19:37)
[2019-05-19 03:05] VITALS: BP 121/61
[2019-05-19] MEDS: ALBUTEROL SULFATE 2.5 MG/3 ML NEBU. NEB SCH ×6 (03:45→19:23)
[2019-05-19] MEDS: VANCOMYCIN 1.25 GM in IV NORMAL SALINE 250ML 250 ML IV SCH ×2 (04:00→12:03)
[2019-05-19] MEDS: methylPREDNISolone SOD SUCC PF 125 MG/2 ML VIAL. IV SCH ×3 (05:29→18:06)
[2019-05-19] MEDS: CEFEPIME HCL IV Push 2 GM VIAL. IVP SCH ×3 (05:30→22:11)
[2019-05-19 06:12] LABS: BASO % 0 % (0-3); EOS % 0 % (0-3); HEMATOCRIT 36.4 % (36.0-47.0); LYMPH # 1.1 x10^3/uL (1.0-4.8); LYMPH % 16 % (24-48); MEAN CORPUSCULAR HEMOGLOBIN 30 pg (25-35); MEAN CORPUSCULAR HGB CONC 33 g/dL (31-37); MEAN CORPUSCULAR VOLUME 89 fL (79-100); MONO # 0.2 x10^3/uL (0.0-1.1); MONO % 3 % (0-9); NEUT # 5.2 x10^3/uL (1.8-7.7); NEUT % 80 % (31-73); PLATELET COUNT 279 x10^3/uL (140-400); RED BLOOD COUNT 4.08 x10^6/uL (3.50-5.40); RED CELL DISTRIBUTION WIDTH 15.3 % (11.5-14.5); WHITE BLOOD COUNT 6.5 x10^3/uL (4.0-11.0)
[2019-05-19 06:25] LABS: CALCIUM 9.7 mg/dL (8.5-10.1); CREATININE 0.6 mg/dL (0.6-1.0); GFR 149.9; POTASSIUM 4.2 mmol/L (3.5-5.1)
[2019-05-19] MEDS: BUDESONIDE 0.5 MG/2 ML NEBU. NEB SCH ×2 (06:56→19:22)
[2019-05-19 07:00] VITALS: BP 133/70
--- NOTE | 2019-05-19 08:10 | PDOC ---
Infectious Disease Note Subjective Subjective Some better. still cough Less F/c/s No N/V/D/Rash/dysuria ROS ROS o/w neg Vital Sign Vital Signs Vital Signs Date Time Temp Pulse Resp B/P (MAP) Pulse Ox O2 Delivery O2 Flow Rate FiO2 05/19/19 06:57 95 Room Air 05/19/19 03:05 97.6 107 20 121/61 (81) 3.0 97.6 Physical Exam PHYSICAL EXAM General: Alert, Oriented X3, Cooperative, mild distress ambulated from restroom ok HEENT: Atraumatic, PERRLA, EOMI, Mucous membr. moist/pink Lungs: No wheezing, slight rhonchi on right but better Abdomen: Normal bowel sounds, Soft, No tenderness, , No masses. Extremities: No clubbing, No cyanosis, No edema, Normal pulses, No tenderness/swelling Skin: No rashes, No breakdown, No significant lesion Neuro: Normal gait, Normal speech, Strength at 5/5 X4 ext, Normal tone, Sensation intact, Cranial nerves 3-12 NL, Reflexes 2+ Psych/Mental Status: Mental status NL, Mood NL Labs Lab Laboratory Tests Test 05/18/19 14:20 05/19/19 04:00 White Blood Count 6.1 x10^3/uL (4.0-11.0) 6.5 x10^3/uL (4.0-11.0) Red Blood Count 3.97 x10^6/uL (3.50-5.40) 4.08 x10^6/uL (3.50-5.40) Hemoglobin 11.6 g/dL (12.0-15.5) 12.0 g/dL (12.0-15.5) Hematocrit 35.1 % (36.0-47.0) 36.4 % (36.0-47.0) Mean Corpuscular Volume 89 fL (79-100) 89 fL (79-100) Mean Corpuscular Hemoglobin 29 pg (25-35) 30 pg (25-35) Mean Corpuscular Hemoglobin Concent 33 g/dL (31-37) 33 g/dL (31-37) Red Cell Distribution Width 14.9 % (11.5-14.5) 15.3 % (11.5-14.5) Platelet Count 287 x10^3/uL (140-400) 279 x10^3/uL (140-400) Neutrophils (%) (Auto) 73 % (31-73) 80 % (31-73) Lymphocytes (%) (Auto) 17 % (24-48) 16 % (24-48) Monocytes (%) (Auto) 9 % (0-9) 3 % (0-9) Eosinophils (%) (Auto) 1 % (0-3) 0 % (0-3) Basophils (%) (Auto) 1 % (0-3) 0 % (0-3) Neutrophils # (Auto) 4.5 x10^3/uL (1.8-7.7) 5.2 x10^3/uL (1.8-7.7) Lymphocytes # (Auto) 1.0 x10^3/uL (1.0-4.8) 1.1 x10^3/uL (1.0-4.8) Monocytes # (Auto) 0.5 x10^3/uL (0.0-1.1) 0.2 x10^3/uL (0.0-1.1) Eosinophils # (Auto) 0.1 x10^3/uL (0.0-0.7) 0.0 x10^3/uL (0.0-0.7) Basophils # (Auto) 0.0 x10^3/uL (0.0-0.2) 0.0 x10^3/uL (0.0-0.2) Sodium Level 134 mmol/L (136-145) 133 mmol/L (136-145) Potassium Level 4.2 mmol/L (3.5-5.1) 4.2 mmol/L (3.5-5.1) Chloride Level 100 mmol/L (98-107) 101 mmol/L (98-107) Carbon Dioxide Level 25 mmol/L (21-32) 19 mmol/L (21-32) Anion Gap 9 (6-14) 13 (6-14) Blood Urea Nitrogen 5 mg/dL (7-20) 6 mg/dL (7-20) Creatinine 0.7 mg/dL (0.6-1.0) 0.6 mg/dL (0.6-1.0) Estimated GFR (Cockcroft-Gault) 125.5 149.9 BUN/Creatinine Ratio 7 (6-20) Glucose Level 91 mg/dL (70-99) 115 mg/dL (70-99) Calcium Level 9.0 mg/dL (8.5-10.1) 9.7 mg/dL (8.5-10.1) Total Bilirubin 0.4 mg/dL (0.2-1.0) Aspartate Amino Transf (AST/SGOT) 30 U/L (15-37) Alanine Aminotransferase (ALT/SGPT) 21 U/L (14-59) Alkaline Phosphatase 139 U/L (46-116) Total Protein 7.5 g/dL (6.4-8.2) Albumin 2.5 g/dL (3.4-5.0) Albumin/Globulin Ratio 0.5 (1.0-1.7) Procalcitonin < 0.10 ng/mL (0.00-0.10) Thyroid Stimulating Hormone (TSH) 0.992 uIU/mL (0.358-3.74) Mycoplasma Serology (LAB) Positive (NEGATIVE) Micro IMPRESSION: 1. The study is severely limited for detection of pulmonary emboli due to a combination of patient body habitus and extensive respiratory motion. Particularly at the bilateral lower lobes, right middle lobe and lingula, the segmental and subsegmental vessels are not evaluated. No saddle embolism or main pulmonary artery embolism is present. No main pulmonary artery dilatation or findings of right heart strain. 2. Consolidation within the right middle lobe extending along the bronchovascular structures to the pleura at the posterior/medial aspect. This is concerning for pneumonia given the configuration and would be somewhat atypical for a pulmonary infarct but the latter is not entirely excluded as the pulmonary arteries to this region are not well evaluated. Recommend correlation for any symptoms or laboratory findings that would suggest an underlying infection. 3. Several prominent lymph nodes such as at the right hilum and right infrahilar region are indeterminant and may be reactive to an underlying infection. Also noted is soft tissue fullness at the anterior mediastinum. There is no mass effect on the adjacent vasculature and this could represent residual thymic tissue but patient body habitus and motion make it difficult to discern if there is intermixed fat. It is recommended that follow-up be performed to confirm stability of this finding and the lymph nodes as well as Dr. resolution of the right lower lobe finding. 4. Mildly prominent spleen. The liver appears to be somewhat prominent as well. Objective Assessment Fever 102 on admit - nml Procalcitonin - better Mycoplasma + 05/18. R pneumonia failed Doxy/Bactrim previous Azithromycin/Rocephin/Soulmedrol times one. LE U/s dopplers neg 35 weeks Sore throat - Group A strep screen neg. TSH nml Asthma - on Steroids ? residual Thymus on ct Plan Plan of Care Dosed Vanc/Cefepime/Azithromycin 05/18 - Need to cover MRSA and potential Pseudomonas as well. Taper abx soon but await cults F/u Blood cults times 2 BMP in am F/u Sputum cult/legionella/Strep pneumo antigen D/w [facility] cults blood cults/strep neg and flu neg in August KIKO SANCHEZ MD May 19, 2019 08:10
--- NOTE | 2019-05-19 10:53 | CONS ---
DATE OF CONSULTATION: 05/19/2019 ATTENDING PHYSICIAN: Dr. Javi Ibrahim. REASON FOR CONSULTATION: Asthma. HISTORY OF PRESENT ILLNESS: The patient is a 23-year-old who is 35 weeks . She has history of asthma, mostly adult onset. She said she only uses albuterol and most of the time it is under control. She states that it usually is flared up by respiratory tract infection. At this time, she was brought into the hospital with complaint of shortness of breath. She was having cough, which has been nonproductive and wheezing. She had a CT chest at [facility], which was reviewed by me and shows right lower lobe consolidation. Consultation was requested for asthma management yesterday. At that time, I had started the patient on IV steroids along with frequent nebulizer treatments with albuterol and Dr. Rice of Infectious Disease has switched her antibiotics and broadened the coverage to cefepime, vancomycin, and azithromycin. The patient's mycoplasma serology has come back as positive. She denied any postnasal drainage. She states that she had one flareup about 10 months ago. She is supposed to be on a steroid inhaler, but she has not been taking it. PAST MEDICAL HISTORY: History of asthma, adult onset. PAST SURGICAL HISTORY: No major surgeries except wisdom teeth removal. ALLERGIES: None. CURRENT MEDICATIONS: Reviewed as listed in the [facility] including albuterol nebs q.4 hours, Pulmicort nebs b.i.d. and IV steroids. REVIEW OF SYSTEMS: A 12-point system obtained. Pertinent positives discussed in my history of present illness, otherwise noncontributory. All systems that were negative were reviewed as well. SOCIAL HISTORY: Denies tobacco history. FAMILY HISTORY: Noncontributory to lungs. PHYSICAL EXAMINATION: VITAL SIGNS: Reviewed. She is afebrile in the last 24 hours. T-max was 99.5. Her pulse ox is 95% on 3 liters. HEENT: Sclerae nonicteric. NECK: Supple. LUNGS: With faint bilateral expiratory wheezes. CARDIOVASCULAR: Regular rate. ABDOMEN: Distended secondary to . EXTREMITIES: With trace pitting edema. LABORATORY DATA: Reviewed. Toxicology screen negative. BUN and creatinine normal. Sodium 133. White cell count 6.5, hemoglobin 12.0 and platelets are 279. IMPRESSION: 1. Acute hypoxic respiratory failure secondary to Mycoplasma pneumoniae in a patient who is 35 weeks . 2. The patient with adult-onset asthma, which is usually triggered by respiratory tract infections. Previous did not trigger her asthma. This hospitalization with asthma exacerbation is triggered by her right lower lobe Mycoplasma pneumoniae. 3. Abnormal CT chest with right lower lobe consolidation consistent with pneumonia. RECOMMENDATIONS: 1. Continue with oxygen at 3 liters and gradually wean FiO2 to keep saturation 96 and above. 2. Continue broad-spectrum antibiotic per Infectious Disease. 3. Continue albuterol nebs along with Pulmicort. 4. Continue IV steroids. 5. We will monitor the clinical response to treatment. 6. Her storage garage manager to follow her while she is in the hospital. 7. Discussed with Dr. Rice and discussed with RN and we will follow along with you. CATHRYN NELSON MD DR: JOSE G/kya JOB#: [id number] / [id number]
[2019-05-19 11:00] VITALS: BP 117/75
--- NOTE | 2019-05-19 11:09 | PDOC ---
PROGRESS NOTES History of Present Illness History of Present Illness Images Images CTPA - 1. The study is severely limited for detection of pulmonary emboli due to a combination of patient body habitus and extensive respiratory motion. Particularly at the bilateral lower lobes, right middle lobe and lingula, the segmental and subsegmental vessels are not evaluated. No saddle embolism or main pulmonary artery embolism is present. No main pulmonary artery dilatation or findings of right heart strain. 2. Consolidation within the right middle lobe extending along the bronchovascular structures to the pleura at the posterior/medial aspect. This is concerning for pneumonia given the configuration and would be somewhat atypical for a pulmonary infarct but the latter is not entirely excluded as the pulmonary arteries to this region are not well evaluated. Recommend correlation for any symptoms or laboratory findings that would suggest an underlying infection. 3. Several prominent lymph nodes such as at the right hilum and right infrahilar region are indeterminant and may be reactive to an underlying infection. Also noted is soft tissue fullness at the anterior mediastinum. There is no mass effect on the adjacent vasculature and this could represent residual thymic tissue but patient body habitus and motion make it difficult to discern if there is intermixed fat. It is recommended that follow-up be performed to confirm stability of this finding and the lymph nodes as well as DrJuana resolution of the right lower lobe finding. 4. Mildly prominent spleen. The liver appears to be somewhat prominent as well. VTE Prophylaxis Ordered VTE Prophylaxis Devices: No VTE Pharmacological Prophylaxi: No impression acute hypoxic resp failure Shortness of breath - likely asthma, , and pneumonia related. Will treat. ID and Pulm following as well Hypoxia - likely from pneumonia, will wean as tolerated. IS, ambulate Right middle lobe infiltrate - failed outpatient doxycycline, bactrim, azithrom ycin, and rocephin. Should be on azithromycin for atypical coverage and agree with cefepime after d/w ID Sepsis - with fever 102F, tachycardia, blood cultures x2, sputum culture, legionella and mycoplasma. Procalcitonin 35 weeks - civil engineer's aide following Sore throat - cepacol Asthma - nebulizers, pulmicort BID, wean O2 as tolerated. Consulted pulmonology FEN - General diet PPX - SCDs FULL CODE Dispo - inpatient for pneumonia failing outpatient therapy. cover MRSA and potential Pseudomonas, mycoplasma Consolidation within the right middle lobe extending along the bronchovascular structures to the pleura at the posterior/medial aspect. This is concerning for pneumonia given the configuration and would be somewhat atypical for a pulmonary infarct but the latter is not entirely excluded as the pulmonary arteries to this region are not well evaluated. mycoplasma igm pos 37 min pt exam, chart review, > 50% of time spent with exam, chart review, pt care coordination Vitals Vitals Vital Signs Date Time Temp Pulse Resp B/P (MAP) Pulse Ox O2 Delivery O2 Flow Rate FiO2 05/19/19 10:51 93 Nasal Cannula 3.0 05/19/19 07:00 98.1 108 24 133/70 (91) 98.1 Physical Exam Physical Exam General: Alert, Oriented X3, Cooperative, mild distress ambulated from restroom ok HEENT: Atraumatic, PERRLA, EOMI, Mucous membr. moist/pink Lungs: No wheezing, slight rhonchi on right but better Abdomen: Normal bowel sounds, Soft, No tenderness, , No masses. Extremities: No clubbing, No cyanosis, No edema, Normal pulses, No tenderness/swelling Skin: No rashes, No breakdown, No significant lesion Neuro: Normal gait, Normal speech, Strength at 5/5 X4 ext, Normal tone, Sensation intact, Cranial nerves 3-12 NL, Reflexes 2+ Psych/Mental Status: Mental status NL, Mood NL General: Alert, Oriented X3, Cooperative, mild distress Abdomen: Normal bowel sounds, Soft, No tenderness, No hepatosplenomegaly, No masses Extremities: No clubbing, No cyanosis, No edema, Normal pulses, No tenderness/swelling Skin: No rashes, No breakdown, No significant lesion Labs LABS SPEC #: [id number] LUIS MIGUEL: 05/18/19 STATUS: RES REQ #: [id number] RECD: 05/18/[address]: KIKO SANCHEZ MD SOURCE: BLOOD ENTR: 05/18/19-1351 OTHR SEXTON: MELINA SALAS MD [facility]: CATHRYN NELSON MD, SARASWATHI MD WOODWORTH, AMANDA C APRN ORDERED: BCULT Procedure Result BLOOD CULTURE Preliminary NO GROWTH AFTER 1 DAY Consolidation within the right middle lobe extending along the bronchovascular structures to the pleura at the posterior/medial aspect. This is concerning for pneumonia given the configuration and would be somewhat atypical for a pulmonary infarct but the latter is not entirely excluded as the pulmonary arteries to this region are not well evaluated. Recommend correlation for any symptoms or laboratory findings that would suggest an underlying infection. LEFT LEG VENOUS DOPPLER STUDY: Clinical indications: Left leg swelling and pain. Shortness of air. Findings: Duplex sonography (including sykes scale evaluation and color flow and waveform spectral analysis) of the proximal aspect of the greater saphenous vein and the proximal aspect of the profunda femoral vein and the entire length of the common femoral and superficial femoral and popliteal veins and the tibioperoneal trunk and the proximal aspect of the posterior tibial and peroneal veins of the left leg was performed. Normal compressibility, augmentation of color Doppler flow after calf compression, and respiratory variation of Doppler flow is seen. Thus, there are no sonographic findings of deep venous thrombosis within these veins. Impression: There are no sonographic findings of deep venous thrombosis within the veins discussed above of the left lower extremity. RIGHT LEG VENOUS DOPPLER STUDY: Clinical indications: Right leg swelling and pain. Shortness of air. Findings: Duplex sonography (including sykes scale evaluation and color flow and waveform spectral analysis) of the proximal aspect of the greater saphenous vein and proximal aspect of the profunda femoral vein and the entire length of the common femoral and superficial femoral and popliteal veins and the tibioperoneal trunk and the proximal aspect of the posterior tibial and peroneal veins of the right leg was performed. Normal compressibility, augmentation of color Doppler flow after calf compression, and respiratory variation of Doppler flow is seen. Thus, there are no sonographic findings of deep venous thrombosis within these veins. Impression: There are no sonographic findings of deep venous thrombosis within the veins discussed above of the right lower extremity. Electronically signed by: Sven Arredondo MD (05/18/2019 6:17 PM) [facility] Laboratory Tests Test 05/18/19 14:20 05/19/19 04:00 05/19/19 06:30 White Blood Count 6.1 x10^3/uL (4.0-11.0) 6.5 x10^3/uL (4.0-11.0) Red Blood Count 3.97 x10^6/uL (3.50-5.40) 4.08 x10^6/uL (3.50-5.40) Hemoglobin 11.6 g/dL (12.0-15.5) 12.0 g/dL (12.0-15.5) Hematocrit 35.1 % (36.0-47.0) 36.4 % (36.0-47.0) Mean Corpuscular Volume 89 fL (79-100) 89 fL (79-100) Mean Corpuscular Hemoglobin 29 pg (25-35) 30 pg (25-35) Mean Corpuscular Hemoglobin Concent 33 g/dL (31-37) 33 g/dL (31-37) Red Cell Distribution Width 14.9 % (11.5-14.5) 15.3 % (11.5-14.5) Platelet Count 287 x10^3/uL (140-400) 279 x10^3/uL (140-400) Neutrophils (%) (Auto) 73 % (31-73) 80 % (31-73) Lymphocytes (%) (Auto) 17 % (24-48) 16 % (24-48) Monocytes (%) (Auto) 9 % (0-9) 3 % (0-9) Eosinophils (%) (Auto) 1 % (0-3) 0 % (0-3) Basophils (%) (Auto) 1 % (0-3) 0 % (0-3) Neutrophils # (Auto) 4.5 x10^3/uL (1.8-7.7) 5.2 x10^3/uL (1.8-7.7) Lymphocytes # (Auto) 1.0 x10^3/uL (1.0-4.8) 1.1 x10^3/uL (1.0-4.8) Monocytes # (Auto) 0.5 x10^3/uL (0.0-1.1) 0.2 x10^3/uL (0.0-1.1) Eosinophils # (Auto) 0.1 x10^3/uL (0.0-0.7) 0.0 x10^3/uL (0.0-0.7) Basophils # (Auto) 0.0 x10^3/uL (0.0-0.2) 0.0 x10^3/uL (0.0-0.2) Sodium Level 134 mmol/L (136-145) 133 mmol/L (136-145) Potassium Level 4.2 mmol/L (3.5-5.1) 4.2 mmol/L (3.5-5.1) Chloride Level 100 mmol/L (98-107) 101 mmol/L (98-107) Carbon Dioxide Level 25 mmol/L (21-32) 19 mmol/L (21-32) Anion Gap 9 (6-14) 13 (6-14) Blood Urea Nitrogen 5 mg/dL (7-20) 6 mg/dL (7-20) Creatinine 0.7 mg/dL (0.6-1.0) 0.6 mg/dL (0.6-1.0) Estimated GFR (Cockcroft-Gault) 125.5 149.9 BUN/Creatinine Ratio 7 (6-20) Glucose Level 91 mg/dL (70-99) 115 mg/dL (70-99) Calcium Level 9.0 mg/dL (8.5-10.1) 9.7 mg/dL (8.5-10.1) Total Bilirubin 0.4 mg/dL (0.2-1.0) Aspartate Amino Transf (AST/SGOT) 30 U/L (15-37) Alanine Aminotransferase (ALT/SGPT) 21 U/L (14-59) Alkaline Phosphatase 139 U/L (46-116) Total Protein 7.5 g/dL (6.4-8.2) Albumin 2.5 g/dL (3.4-5.0) Albumin/Globulin Ratio 0.5 (1.0-1.7) Procalcitonin < 0.10 ng/mL (0.00-0.10) Thyroid Stimulating Hormone (TSH) 0.992 uIU/mL (0.358-3.74) Mycoplasma Serology (LAB) Positive (NEGATIVE) Group A Streptococcus Rapid Negative (NEGATIVE) Comment Review of Relevant I have reviewed the following items nolan (where applicable) has been applied. Labs Laboratory Tests Test 05/17/19 20:00 05/18/19 14:20 05/19/19 04:00 05/19/19 06:30 Urine Collection Type Unknown Urine Color Yellow Urine Clarity Clear Urine pH 6.5 Urine Specific [place] 1.015 Urine Protein Negative mg/dL (NEG-TRACE) Urine Glucose (UA) Negative mg/dL (NEG) Urine Ketones (Stick) Trace mg/dL (NEG) Urine Blood Small (NEG) Urine Nitrite Negative (NEG) Urine Bilirubin Negative (NEG) Urine Urobilinogen Dipstick 0.2 mg/dL (0.2 mg/dL) Urine Leukocyte Esterase Small (NEG) Urine RBC 3-5 /HPF (0-2) Urine WBC 11-20 /HPF (0-4) Urine Squamous Epithelial Cells Few /LPF Urine Bacteria 0 /HPF (0-FEW) Urine Mucus Mod /LPF Urine Opiates Screen Neg (NEG) Urine Methadone Screen Neg (NEG) Urine Barbiturates Neg (NEG) Urine Phencyclidine Screen Neg (NEG) Urine Amphetamine/Methamphetamine Neg (NEG) Urine Benzodiazepines Screen Neg (NEG) Urine Cocaine Screen Neg (NEG) Urine Cannabinoids Screen Neg (NEG) Urine Ethyl Alcohol Neg (NEG) White Blood Count 6.1 x10^3/uL (4.0-11.0) 6.5 x10^3/uL (4.0-11.0) Red Blood Count 3.97 x10^6/uL (3.50-5.40) 4.08 x10^6/uL (3.50-5.40) Hemoglobin 11.6 g/dL (12.0-15.5) 12.0 g/dL (12.0-15.5) Hematocrit 35.1 % (36.0-47.0) 36.4 % (36.0-47.0) Mean Corpuscular Volume 89 fL (79-100) 89 fL (79-100) Mean Corpuscular Hemoglobin 29 pg (25-35) 30 pg (25-35) Mean Corpuscular Hemoglobin Concent 33 g/dL (31-37) 33 g/dL (31-37) Red Cell Distribution Width 14.9 % (11.5-14.5) 15.3 % (11.5-14.5) Platelet Count 287 x10^3/uL (140-400) 279 x10^3/uL (140-400) Neutrophils (%) (Auto) 73 % (31-73) 80 % (31-73) Lymphocytes (%) (Auto) 17 % (24-48) 16 % (24-48) Monocytes (%) (Auto) 9 % (0-9) 3 % (0-9) Eosinophils (%) (Auto) 1 % (0-3) 0 % (0-3) Basophils (%) (Auto) 1 % (0-3) 0 % (0-3) Neutrophils # (Auto) 4.5 x10^3/uL (1.8-7.7) 5.2 x10^3/uL (1.8-7.7) Lymphocytes # (Auto) 1.0 x10^3/uL (1.0-4.8) 1.1 x10^3/uL (1.0-4.8) Monocytes # (Auto) 0.5 x10^3/uL (0.0-1.1) 0.2 x10^3/uL (0.0-1.1) Eosinophils # (Auto) 0.1 x10^3/uL (0.0-0.7) 0.0 x10^3/uL (0.0-0.7) Basophils # (Auto) 0.0 x10^3/uL (0.0-0.2) 0.0 x10^3/uL (0.0-0.2) Sodium Level 134 mmol/L (136-145) 133 mmol/L (136-145) Potassium Level 4.2 mmol/L (3.5-5.1) 4.2 mmol/L (3.5-5.1) Chloride Level 100 mmol/L (98-107) 101 mmol/L (98-107) Carbon Dioxide Level 25 mmol/L (21-32) 19 mmol/L (21-32) Anion Gap 9 (6-14) 13 (6-14) Blood Urea Nitrogen 5 mg/dL (7-20) 6 mg/dL (7-20) Creatinine 0.7 mg/dL (0.6-1.0) 0.6 mg/dL (0.6-1.0) Estimated GFR (Cockcroft-Gault) 125.5 149.9 BUN/Creatinine Ratio 7 (6-20) Glucose Level 91 mg/dL (70-99) 115 mg/dL (70-99) Calcium Level 9.0 mg/dL (8.5-10.1) 9.7 mg/dL (8.5-10.1) Total Bilirubin 0.4 mg/dL (0.2-1.0) Aspartate Amino Transf (AST/SGOT) 30 U/L (15-37) Alanine Aminotransferase (ALT/SGPT) 21 U/L (14-59) Alkaline Phosphatase 139 U/L (46-116) Total Protein 7.5 g/dL (6.4-8.2) Albumin 2.5 g/dL (3.4-5.0) Albumin/Globulin Ratio 0.5 (1.0-1.7) Procalcitonin < 0.10 ng/mL (0.00-0.10) Thyroid Stimulating Hormone (TSH) 0.992 uIU/mL (0.358-3.74) Mycoplasma Serology (LAB) Positive (NEGATIVE) Group A Streptococcus Rapid Negative (NEGATIVE) Laboratory Tests Test 05/18/19 14:20 05/19/19 04:00 05/19/19 06:30 White Blood Count 6.1 x10^3/uL (4.0-11.0) 6.5 x10^3/uL (4.0-11.0) Red Blood Count 3.97 x10^6/uL (3.50-5.40) 4.08 x10^6/uL (3.50-5.40) Hemoglobin 11.6 g/dL (12.0-15.5) 12.0 g/dL (12.0-15.5) Hematocrit 35.1 % (36.0-47.0) 36.4 % (36.0-47.0) Mean Corpuscular Volume 89 fL (79-100) 89 fL (79-100) Mean Corpuscular Hemoglobin 29 pg (25-35) 30 pg (25-35) Mean Corpuscular Hemoglobin Concent 33 g/dL (31-37) 33 g/dL (31-37) Red Cell Distribution Width 14.9 % (11.5-14.5) 15.3 % (11.5-14.5) Platelet Count 287 x10^3/uL (140-400) 279 x10^3/uL (140-400) Neutrophils (%) (Auto) 73 % (31-73) 80 % (31-73) Lymphocytes (%) (Auto) 17 % (24-48) 16 % (24-48) Monocytes (%) (Auto) 9 % (0-9) 3 % (0-9) Eosinophils (%) (Auto) 1 % (0-3) 0 % (0-3) Basophils (%) (Auto) 1 % (0-3) 0 % (0-3) Neutrophils # (Auto) 4.5 x10^3/uL (1.8-7.7) 5.2 x10^3/uL (1.8-7.7) Lymphocytes # (Auto) 1.0 x10^3/uL (1.0-4.8) 1.1 x10^3/uL (1.0-4.8) Monocytes # (Auto) 0.5 x10^3/uL (0.0-1.1) 0.2 x10^3/uL (0.0-1.1) Eosinophils # (Auto) 0.1 x10^3/uL (0.0-0.7) 0.0 x10^3/uL (0.0-0.7) Basophils # (Auto) 0.0 x10^3/uL (0.0-0.2) 0.0 x10^3/uL (0.0-0.2) Sodium Level 134 mmol/L (136-145) 133 mmol/L (136-145) Potassium Level 4.2 mmol/L (3.5-5.1) 4.2 mmol/L (3.5-5.1) Chloride Level 100 mmol/L (98-107) 101 mmol/L (98-107) Carbon Dioxide Level 25 mmol/L (21-32) 19 mmol/L (21-32) Anion Gap 9 (6-14) 13 (6-14) Blood Urea Nitrogen 5 mg/dL (7-20) 6 mg/dL (7-20) Creatinine 0.7 mg/dL (0.6-1.0) 0.6 mg/dL (0.6-1.0) Estimated GFR (Cockcroft-Gault) 125.5 149.9 BUN/Creatinine Ratio 7 (6-20) Glucose Level 91 mg/dL (70-99) 115 mg/dL (70-99) Calcium Level 9.0 mg/dL (8.5-10.1) 9.7 mg/dL (8.5-10.1) Total Bilirubin 0.4 mg/dL (0.2-1.0) Aspartate Amino Transf (AST/SGOT) 30 U/L (15-37) Alanine Aminotransferase (ALT/SGPT) 21 U/L (14-59) Alkaline Phosphatase 139 U/L (46-116) Total Protein 7.5 g/dL (6.4-8.2) Albumin 2.5 g/dL (3.4-5.0) Albumin/Globulin Ratio 0.5 (1.0-1.7) Procalcitonin < 0.10 ng/mL (0.00-0.10) Thyroid Stimulating Hormone (TSH) 0.992 uIU/mL (0.358-3.74) Mycoplasma Serology (LAB) Positive (NEGATIVE) Group A Streptococcus Rapid Negative (NEGATIVE) Medications Current Medications Ringer's Solution 1,000 ml @ 125 mls/hr Q8H IV ; Start 05/17/19 at 19:37 Dextrose/Lactated Ringer's 1,000 ml @ 125 mls/hr Q8H IV Last administered on 05/18/19 06:16; Start 05/17/19 at 20:30; Stop 05/18/19 at 21:58; Status DC Ampicillin Sodium 2 gm/Sodium Chloride 100 ml @ 200 mls/hr Q8HRS IV Last administered on 05/18/19 05:34; Start 05/17/19 at 22:00; Stop 05/18/19 at 13:39; Status DC Acetaminophen (Tylenol) 1,000 mg PRN Q6HRS PRN PO FEVER Last administered on 05/19/19at 00:15; Start 05/17/19 at 20:30 Albuterol Sulfate (Ventolin Neb Soln) 2.5 mg PRN Q4HRS PRN NEB SHORTNESS OF BREATH Last administered on 05/18/19at 16:53; Start 05/17/19 at 20:30 Vancomycin HCl (Vanco Per Pharmacy) 1 each PRN DAILY PRN MC SEE COMMENTS Last administered on 05/18/19 19:18; Start 05/18/19 at 13:30 Cefepime HCl (Maxipime) 2 gm Q8HRS IVP Last administered on 05/19/19 05:30; Start 05/18/19 at 14:00 Azithromycin 250 ml @ 250 mls/hr 1X ONCE IV Last administered on 05/18/19at 16:51; Start 05/18/19 at 13:30; Stop 05/18/19 at 14:29; Status DC Methylprednisolone Sodium Succinate (SOLU-Medrol 125MG VIAL) 60 mg Q6HRS IV Last administered on 05/19/19 05:29; Start 05/18/19 at 18:00 Budesonide (Pulmicort) 0.5 mg RTBID NEB Last administered on 05/19/19 06:56; Start 05/18/19 at 20:00 Albuterol Sulfate (Ventolin Neb Soln) 2.5 mg PRN Q4HRS PRN NEB SHORTNESS OF BREATH; Start 05/18/19 at 16:00; Stop 05/18/19 at 17:03; Status DC Vancomycin HCl 2 gm/Sodium Chloride 500 ml @ 250 mls/hr 1X ONCE IV Last administered on 05/18/19at 19:42; Start 05/18/19 at 15:00; Stop 05/18/19 at 16:59; Status DC Dextrose/Lactated Ringer's 1,000 ml @ 75 mls/hr [id number] IV Last administered on 05/18/19at 19:37; Start 05/18/19 at 16:45 Albuterol Sulfate (Ventolin Neb Soln) 2.5 mg Q4HRS NEB Last administered on 05/19/19at 10:50; Start 05/18/19 at 20:00 Vancomycin HCl 1.25 gm/Sodium Chloride 250 ml @ 167 mls/hr Q8H IV Last adm inistered on 05/19/19at 04:00; Start 05/19/19 at 04:00 Vancomycin HCl (Vancomycin Trough Level) 1 each 1X ONCE MC ; Start 05/19/19 at 19:30; Stop 05/19/19 at 19:31 Throat Lozenges (Cepacol Sore Throat Lozenge) 1 bj PRN Q2HRS PRN PO SORE THROAT; Start 05/18/19 at 21:45 Azithromycin (Zithromax) 500 mg DAILY PO ; Start 05/19/19 at 09:00 Active Scripts Active Proair Hfa Inhaler (Albuterol Sulfate) 8.5 Gm Hfa.aer.ad 2 Puff INH PRN Q6HRS PRN 30 Days Proair Respiclick (Albuterol Sulfate) 90 Mcg Aer.pow.ba 1 Puff IH PRN Q6HRS PRN Reported Prenatabs Rx Tablet ( Vit #76/Iron,Carb/Fa) 1 Each Tablet 1 Tab PO DAILY Vitals/I & O Vital Sign - Last 24 Hours 05/18/19 05/18/19 05/18/19 05/18/19 13:29 16:53 19:05 20:19 Temp 99.5 99.5 Pulse 129 Resp 20 B/P (MAP) 153/81 (105) Pulse Ox 93 96 95 O2 Delivery Room Air Nasal Cannula Simple Mask Room Air O2 Flow Rate 2.0 5.0 12/12/19 05/19/19 05/19/19 05/19/19 23:05 00:01 03:05 03:45 Temp 98.6 97.6 98.6 97.6 Pulse 112 107 Resp 20 20 B/P (MAP) 140/84 (102) 121/61 (81) Pulse Ox 96 95 91 O2 Delivery Simple Mask Nasal Cannula Nasal Cannula Room Air O2 Flow Rate 5.0 2.0 3.0 05/19/19 05/19/19 05/19/19 05/19/19 06:57 07:00 08:00 10:51 Temp 98.1 98.1 Pulse 108 Resp 24 B/P (MAP) 133/70 (91) Pulse Ox 95 3 93 O2 Delivery Room Air Nasal Cannula Nasal Cannula O2 Flow Rate 3.0 3.0 Intake and Output 05/18/19 05/18/19 05/19/19 15:00 23:00 07:00 Intake Total 600 ml 800 ml Output Total 500 ml Balance 600 ml 300 ml TAINA BERNAL MD May 19, 2019 11:09
--- NOTE | 2019-05-19 11:42 | NUR ---
NST done by L/D RN at [id number]. NST reactive. FHR baseline rate 130, moderate variability, 15x15 accelerations, no decelerations. No contractions noted on [place], abd palpates soft. Pt denies LOF, vag bleeding, ctx or cramping. Pt states +FM and audible FM noted during NST. Discussed kick counts and PTL precautions, pt verbalized understanding. Plan to continue NST Q shift, unless monitoring needed sooner. Pt wants to continue to take her PNV and colace during her hospital admission. Dr. Middleton notified of reactive NST and pt's medication request, verbal order received for daily PNC and Colace BID, RN to place order and will notify her nurse on the 6th floor.
[2019-05-19] MEDS: PRENATAL MULTIVITAMIN TABLET. PO SCH (11:56)
[2019-05-19] MEDS: AZITHROMYCIN 250 MG TABLET. PO SCH (11:56)
[2019-05-19] MEDS: DOCUSATE SODIUM 100 MG CAPSULE. PO SCH ×2 (11:56→22:11)
--- NOTE | 2019-05-19 13:31 | NUR ---
SS following for discharge planning. SS reviewed pt chart. Pt is from home and is currently requiring oxygen. Pt is 35 weeks . SS will continue to follow for discharge planning.
[2019-05-19 15:00] VITALS: BP 130/78
[2019-05-19] MEDS: IV DEXTROSE 5%-LACT RINGERS 1,000 ML IV SCH (18:10)
[2019-05-19 19:10] VITALS: BP 143/87
[2019-05-19 20:07] LABS: VANC TR 8.8 mcg/mL (10.0-20.0)
[2019-05-19] MEDS: VANCOMYCIN PER PHARMACY MC PRN (20:17)
--- NOTE | 2019-05-19 20:19 | NUR ---
Pharmacy Vancomycin Dosing Note S: Consulted to monitor and dose vancomycin started 05/18/19. O: JOSÉSEPTEMBER is a 23 year old F with Pneumonia Other Antibiotics: CEFEPIME 2GM Q8HRS LABS: Last BUN: 6 Last Creatinine: 0.6 Creatinine Clearance: >100 mL/min Last WBC: 6.5 Last Procalcitonin: 0.1 Tmax (past 24 hours): 99.5 Microbiology: BLOOD: NGTD I/O: 1400/500 Drug Levels: Last Trough level: 8.8 on 05/19/19 at 1930 Last dose given 05/18/19 at 2000 Vancomycin Dosing: Dosing Weight: Actual Target Trough: 15-20 A: Based on: trough P: 1. Increase Vancomycin to 1500 mg IV q8h 2. Follow up Trough level as needed if vancomycin continues 3. Pharmacy will continue to monitor, follow and adjust therapy as needed. Saba Lockhart RPH, 05/19/19 2019
[2019-05-19] MEDS: VANCOMYCIN 1.5 GM in IV NORMAL SALINE 500ML BAG 500 ML IV SCH (22:10)
[2019-05-19 23:35] VITALS: BP 129/83
[2019-05-20] MEDS: methylPREDNISolone SOD SUCC PF 125 MG/2 ML VIAL. IV SCH ×2 (00:37→05:53)
[2019-05-20 03:54] VITALS: BP 131/85
[2019-05-20] MEDS: ALBUTEROL SULFATE 2.5 MG/3 ML NEBU. NEB SCH ×6 (03:54→19:22)
[2019-05-20] MEDS: IV RINGERS,LACTATED 1000ML 1,000 ML IV SCH ×2 (03:58→19:36)
[2019-05-20 05:36] LABS: CALCIUM 9.1 mg/dL (8.5-10.1); CREATININE 0.7 mg/dL (0.6-1.0); GFR 125.5; POTASSIUM 4.2 mmol/L (3.5-5.1)
[2019-05-20] MEDS: VANCOMYCIN 1.5 GM in IV NORMAL SALINE 500ML BAG 500 ML IV SCH ×3 (05:53→21:27)
[2019-05-20] MEDS: CEFEPIME HCL IV Push 2 GM VIAL. IVP SCH ×3 (05:54→21:27)
[2019-05-20 07:00] VITALS: BP 123/83
[2019-05-20] MEDS: BUDESONIDE 0.5 MG/2 ML NEBU. NEB SCH ×2 (07:34→19:22)
--- NOTE | 2019-05-20 08:48 | PDOC ---
PULMONARY PROGRESS NOTES Subjective sob better, has cough, nasal congestion Vitals Vital Signs Date Time Temp Pulse Resp B/P (MAP) Pulse Ox O2 Delivery O2 Flow Rate FiO2 05/20/19 07:37 93 Nasal Cannula 4.0 05/20/19 07:00 98.3 104 20 123/83 (96) 98.3 ROS: No Nausea General: Alert, Oriented X4 Lungs: Other (coarse bs) Cardiovascular: S1, S2 Abdomen: Soft, Non-tender Neuro Exam: Alert Extremities: No Edema Skin: Warm Labs Laboratory Tests Test 05/18/19 14:20 05/19/19 04:00 05/19/19 06:30 05/19/19 19:30 White Blood Count 6.1 x10^3/uL (4.0-11.0) 6.5 x10^3/uL (4.0-11.0) Red Blood Count 3.97 x10^6/uL (3.50-5.40) 4.08 x10^6/uL (3.50-5.40) Hemoglobin 11.6 g/dL (12.0-15.5) 12.0 g/dL (12.0-15.5) Hematocrit 35.1 % (36.0-47.0) 36.4 % (36.0-47.0) Mean Corpuscular Volume 89 fL (79-100) 89 fL (79-100) Mean Corpuscular Hemoglobin 29 pg (25-35) 30 pg (25-35) Mean Corpuscular Hemoglobin Concent 33 g/dL (31-37) 33 g/dL (31-37) Red Cell Distribution Width 14.9 % (11.5-14.5) 15.3 % (11.5-14.5) Platelet Count 287 x10^3/uL (140-400) 279 x10^3/uL (140-400) Neutrophils (%) (Auto) 73 % (31-73) 80 % (31-73) Lymphocytes (%) (Auto) 17 % (24-48) 16 % (24-48) Monocytes (%) (Auto) 9 % (0-9) 3 % (0-9) Eosinophils (%) (Auto) 1 % (0-3) 0 % (0-3) Basophils (%) (Auto) 1 % (0-3) 0 % (0-3) Neutrophils # (Auto) 4.5 x10^3/uL (1.8-7.7) 5.2 x10^3/uL (1.8-7.7) Lymphocytes # (Auto) 1.0 x10^3/uL (1.0-4.8) 1.1 x10^3/uL (1.0-4.8) Monocytes # (Auto) 0.5 x10^3/uL (0.0-1.1) 0.2 x10^3/uL (0.0-1.1) Eosinophils # (Auto) 0.1 x10^3/uL (0.0-0.7) 0.0 x10^3/uL (0.0-0.7) Basophils # (Auto) 0.0 x10^3/uL (0.0-0.2) 0.0 x10^3/uL (0.0-0.2) Sodium Level 134 mmol/L (136-145) 133 mmol/L (136-145) Potassium Level 4.2 mmol/L (3.5-5.1) 4.2 mmol/L (3.5-5.1) Chloride Level 100 mmol/L (98-107) 101 mmol/L (98-107) Carbon Dioxide Level 25 mmol/L (21-32) 19 mmol/L (21-32) Anion Gap 9 (6-14) 13 (6-14) Blood Urea Nitrogen 5 mg/dL (7-20) 6 mg/dL (7-20) Creatinine 0.7 mg/dL (0.6-1.0) 0.6 mg/dL (0.6-1.0) Estimated GFR (Cockcroft-Gault) 125.5 149.9 BUN/Creatinine Ratio 7 (6-20) Glucose Level 91 mg/dL (70-99) 115 mg/dL (70-99) Calcium Level 9.0 mg/dL (8.5-10.1) 9.7 mg/dL (8.5-10.1) Total Bilirubin 0.4 mg/dL (0.2-1.0) Aspartate Amino Transf (AST/SGOT) 30 U/L (15-37) Alanine Aminotransferase (ALT/SGPT) 21 U/L (14-59) Alkaline Phosphatase 139 U/L (46-116) Total Protein 7.5 g/dL (6.4-8.2) Albumin 2.5 g/dL (3.4-5.0) Albumin/Globulin Ratio 0.5 (1.0-1.7) Procalcitonin < 0.10 ng/mL (0.00-0.10) Thyroid Stimulating Hormone (TSH) 0.992 uIU/mL (0.358-3.74) Mycoplasma Serology (LAB) Positive (NEGATIVE) Group A Streptococcus Rapid Negative (NEGATIVE) Vancomycin Level Trough 8.8 mcg/mL (10.0-20.0) Vancomycin Last Dose Date 05/19/19 Vancomycin Last Dose Time 1200 Test 05/20/19 05:05 Sodium Level 138 mmol/L (136-145) Potassium Level 4.2 mmol/L (3.5-5.1) Chloride Level 104 mmol/L (98-107) Carbon Dioxide Level 20 mmol/L (21-32) Anion Gap 14 (6-14) Blood Urea Nitrogen 8 mg/dL (7-20) Creatinine 0.7 mg/dL (0.6-1.0) Estimated GFR (Cockcroft-Gault) 125.5 Glucose Level 132 mg/dL (70-99) Calcium Level 9.1 mg/dL (8.5-10.1) Laboratory Tests Test 05/19/19 19:30 05/20/19 05:05 Vancomycin Level Trough 8.8 mcg/mL (10.0-20.0) Vancomycin Last Dose Date 05/19/19 Vancomycin Last Dose Time 1200 Sodium Level 138 mmol/L (136-145) Potassium Level 4.2 mmol/L (3.5-5.1) Chloride Level 104 mmol/L (98-107) Carbon Dioxide Level 20 mmol/L (21-32) Anion Gap 14 (6-14) Blood Urea Nitrogen 8 mg/dL (7-20) Creatinine 0.7 mg/dL (0.6-1.0) Estimated GFR (Cockcroft-Gault) 125.5 Glucose Level 132 mg/dL (70-99) Calcium Level 9.1 mg/dL (8.5-10.1) Medications Active Scripts Medications Dose Route/Sig Max Daily Dose Days Date Category Proair Hfa Inhaler (Albuterol Sulfate) 8.5 Gm Hfa.aer.ad 2 Puff INH PRN Q6HRS PRN 30 01/22/19 Rx Proair Respiclick (Albuterol Sulfate) 90 Mcg Aer.pow.ba 1 Puff IH PRN Q6HRS PRN 02/09/17 Rx Prenatabs Rx Tablet ( Vit #76/Iron,Carb/Fa) 1 Each Tablet 1 Tab PO DAILY 07/27/14 Reported Impression . IMPRESSION: 1. Acute hypoxic respiratory failure secondary to Mycoplasma pneumoniae in a patient who is 35 weeks . 2. The patient with adult-onset asthma, which is usually triggered by respiratory tract infections. Previous did not trigger her asthma. This hospitalization with asthma exacerbation is triggered by her right lower lobe Mycoplasma pneumoniae. 3. Abnormal CT chest with right lower lobe consolidation consistent with pneumonia. Plan . RECOMMENDATIONS: 1. Continue with oxygen at 3 liters and gradually wean FiO2 to keep saturation 96 and above. 2. Vanc, Cefepime and Azithromycin / - Need to cover MRSA and potential Pseudomonas as well. Taper abx soon per id. 3. Continue albuterol nebs along with Pulmicort. 4. change solumedrol to 40 q 8hrs 5. We will monitor the clinical response to treatment. 6. Her disability services coordinator to follow her while she is in the hospital. 7. start flonase for nasal congestion discussed YU Montes pt, MD May 20, 2019 08:48
[2019-05-20] MEDS: PRENATAL MULTIVITAMIN TABLET. PO SCH (09:03)
[2019-05-20] MEDS: DOCUSATE SODIUM 100 MG CAPSULE. PO SCH ×2 (09:03→21:30)
--- NOTE | 2019-05-20 09:53 | PDOC ---
PROGRESS NOTES History of Present Illness History of Present Illness Images Images CTPA - 1. The study is severely limited for detection of pulmonary emboli due to a combination of patient body habitus and extensive respiratory motion. Particularly at the bilateral lower lobes, right middle lobe and lingula, the segmental and subsegmental vessels are not evaluated. No saddle embolism or main pulmonary artery embolism is present. No main pulmonary artery dilatation or findings of right heart strain. 2. Consolidation within the right middle lobe extending along the bronchovascular structures to the pleura at the posterior/medial aspect. This is concerning for pneumonia given the configuration and would be somewhat atypical for a pulmonary infarct but the latter is not entirely excluded as the pulmonary arteries to this region are not well evaluated. Recommend correlation for any symptoms or laboratory findings that would suggest an underlying infection. 3. Several prominent lymph nodes such as at the right hilum and right infrahilar region are indeterminant and may be reactive to an underlying infection. Also noted is soft tissue fullness at the anterior mediastinum. There is no mass effect on the adjacent vasculature and this could represent residual thymic tissue but patient body habitus and motion make it difficult to discern if there is intermixed fat. It is recommended that follow-up be performed to confirm stability of this finding and the lymph nodes as well as DrJuana resolution of the right lower lobe finding. 4. Mildly prominent spleen. The liver appears to be somewhat prominent as well. VTE Prophylaxis Ordered VTE Prophylaxis Devices: No VTE Pharmacological Prophylaxi: No impression acute hypoxic resp failure Shortness of breath - likely asthma, , and pneumonia related. Will treat. ID and Pulm following as well Hypoxia - likely from pneumonia, will wean as tolerated. IS, ambulate Right middle lobe infiltrate - failed outpatient doxycycline, bactrim, azithrom ycin, and rocephin. Should be on azithromycin for atypical coverage and agree with cefepime after d/w ID Sepsis - with fever 102F, tachycardia, blood cultures x2, sputum culture, legionella and mycoplasma. Procalcitonin 35 weeks - park aide following Sore throat - cepacol Asthma - nebulizers, pulmicort BID, wean O2 as tolerated. Consulted pulmonology FEN - General diet PPX - SCDs FULL CODE Dispo - inpatient for pneumonia failing outpatient therapy. cover MRSA and potential Pseudomonas, mycoplasma FLONASE NS DAILY Consolidation within the right middle lobe extending along the bronchovascular structures to the pleura at the posterior/medial aspect. This is concerning for pneumonia given the configuration and would be somewhat atypical for a pulmonary infarct but the latter is not entirely excluded as the pulmonary arteries to this region are not well evaluated. mycoplasma igm pos 36 min pt exam, chart review, > 50% of time spent with exam, chart review, pt care coordination Vitals Vitals Vital Signs Date Time Temp Pulse Resp B/P (MAP) Pulse Ox O2 Delivery O2 Flow Rate FiO2 05/20/19 07:37 93 Nasal Cannula 4.0 05/20/19 07:00 98.3 104 20 123/83 (96) 98.3 Physical Exam Physical Exam General: Alert, Oriented X3, Cooperative, mild distress ambulated from restroom ok HEENT: Atraumatic, PERRLA, EOMI, Mucous membr. moist/pink Lungs: No wheezing, slight rhonchi on right but better Abdomen: Normal bowel sounds, Soft, No tenderness, , No masses. Extremities: No clubbing, No cyanosis, No edema, Normal pulses, No tenderness/swelling Skin: No rashes, No breakdown, No significant lesion Neuro: Normal gait, Normal speech, Strength at 5/5 X4 ext, Normal tone, Sensation intact, Cranial nerves 3-12 NL, Reflexes 2+ Psych/Mental Status: Mental status NL, Mood NL General: Alert, Oriented X3, Cooperative, mild distress Lungs: Other (coarse bs) Abdomen: Normal bowel sounds, Soft, No tenderness, No hepatosplenomegaly, No masses Extremities: No clubbing, No cyanosis, No edema, Normal pulses, No tenderness/swelling Skin: No rashes, No breakdown, No significant lesion Labs LABS DR: MIRTHA COLLADO : 1995 BED: 1 DIS: STATUS: ADM IN TLOC: SPEC #: [id number] LUIS MIGUEL: 12/11/19-2021 STATUS: COMP REQ #: [id number] RECD: 05/17/[address]: FABRICIO COLLADO MD SOURCE: VOID ENTR: 05/17/[address]: HERNANDEZ GTZ Jr, MD [facility] MARQUEZ VASQUEZ APRN ORDERED: URINE CULTURE Procedure Result URINE CULTURE Final Final report URINE CULTURE RES 1 Final No growth Performed at: [facility], [place], [place] [id number] Rn Neurosurgical: NABOR Nick MD, Phone: [phone] Laboratory Tests Test 05/19/19 19:30 05/20/19 05:05 Vancomycin Level Trough 8.8 mcg/mL (10.0-20.0) Vancomycin Last Dose Date 05/19/19 Vancomycin Last Dose Time 1200 Sodium Level 138 mmol/L (136-145) Potassium Level 4.2 mmol/L (3.5-5.1) Chloride Level 104 mmol/L (98-107) Carbon Dioxide Level 20 mmol/L (21-32) Anion Gap 14 (6-14) Blood Urea Nitrogen 8 mg/dL (7-20) Creatinine 0.7 mg/dL (0.6-1.0) Estimated GFR (Cockcroft-Gault) 125.5 Glucose Level 132 mg/dL (70-99) Calcium Level 9.1 mg/dL (8.5-10.1) Comment Review of Relevant I have reviewed the following items nolan (where applicable) has been applied. Labs Laboratory Tests Test 05/18/19 14:20 05/19/19 04:00 05/19/19 06:30 05/19/19 19:30 White Blood Count 6.1 x10^3/uL (4.0-11.0) 6.5 x10^3/uL (4.0-11.0) Red Blood Count 3.97 x10^6/uL (3.50-5.40) 4.08 x10^6/uL (3.50-5.40) Hemoglobin 11.6 g/dL (12.0-15.5) 12.0 g/dL (12.0-15.5) Hematocrit 35.1 % (36.0-47.0) 36.4 % (36.0-47.0) Mean Corpuscular Volume 89 fL (79-100) 89 fL (79-100) Mean Corpuscular Hemoglobin 29 pg (25-35) 30 pg (25-35) Mean Corpuscular Hemoglobin Concent 33 g/dL (31-37) 33 g/dL (31-37) Red Cell Distribution Width 14.9 % (11.5-14.5) 15.3 % (11.5-14.5) Platelet Count 287 x10^3/uL (140-400) 279 x10^3/uL (140-400) Neutrophils (%) (Auto) 73 % (31-73) 80 % (31-73) Lymphocytes (%) (Auto) 17 % (24-48) 16 % (24-48) Monocytes (%) (Auto) 9 % (0-9) 3 % (0-9) Eosinophils (%) (Auto) 1 % (0-3) 0 % (0-3) Basophils (%) (Auto) 1 % (0-3) 0 % (0-3) Neutrophils # (Auto) 4.5 x10^3/uL (1.8-7.7) 5.2 x10^3/uL (1.8-7.7) Lymphocytes # (Auto) 1.0 x10^3/uL (1.0-4.8) 1.1 x10^3/uL (1.0-4.8) Monocytes # (Auto) 0.5 x10^3/uL (0.0-1.1) 0.2 x10^3/uL (0.0-1.1) Eosinophils # (Auto) 0.1 x10^3/uL (0.0-0.7) 0.0 x10^3/uL (0.0-0.7) Basophils # (Auto) 0.0 x10^3/uL (0.0-0.2) 0.0 x10^3/uL (0.0-0.2) Sodium Level 134 mmol/L (136-145) 133 mmol/L (136-145) Potassium Level 4.2 mmol/L (3.5-5.1) 4.2 mmol/L (3.5-5.1) Chloride Level 100 mmol/L (98-107) 101 mmol/L (98-107) Carbon Dioxide Level 25 mmol/L (21-32) 19 mmol/L (21-32) Anion Gap 9 (6-14) 13 (6-14) Blood Urea Nitrogen 5 mg/dL (7-20) 6 mg/dL (7-20) Creatinine 0.7 mg/dL (0.6-1.0) 0.6 mg/dL (0.6-1.0) Estimated GFR (Cockcroft-Gault) 125.5 149.9 BUN/Creatinine Ratio 7 (6-20) Glucose Level 91 mg/dL (70-99) 115 mg/dL (70-99) Calcium Level 9.0 mg/dL (8.5-10.1) 9.7 mg/dL (8.5-10.1) Total Bilirubin 0.4 mg/dL (0.2-1.0) Aspartate Amino Transf (AST/SGOT) 30 U/L (15-37) Alanine Aminotransferase (ALT/SGPT) 21 U/L (14-59) Alkaline Phosphatase 139 U/L (46-116) Total Protein 7.5 g/dL (6.4-8.2) Albumin 2.5 g/dL (3.4-5.0) Albumin/Globulin Ratio 0.5 (1.0-1.7) Procalcitonin < 0.10 ng/mL (0.00-0.10) Thyroid Stimulating Hormone (TSH) 0.992 uIU/mL (0.358-3.74) Mycoplasma Serology (LAB) Positive (NEGATIVE) Group A Streptococcus Rapid Negative (NEGATIVE) Vancomycin Level Trough 8.8 mcg/mL (10.0-20.0) Vancomycin Last Dose Date 05/19/19 Vancomycin Last Dose Time 1200 Test 05/20/19 05:05 Sodium Level 138 mmol/L (136-145) Potassium Level 4.2 mmol/L (3.5-5.1) Chloride Level 104 mmol/L (98-107) Carbon Dioxide Level 20 mmol/L (21-32) Anion Gap 14 (6-14) Blood Urea Nitrogen 8 mg/dL (7-20) Creatinine 0.7 mg/dL (0.6-1.0) Estimated GFR (Cockcroft-Gault) 125.5 Glucose Level 132 mg/dL (70-99) Calcium Level 9.1 mg/dL (8.5-10.1) Laboratory Tests Test 05/19/19 19:30 05/20/19 05:05 Vancomycin Level Trough 8.8 mcg/mL (10.0-20.0) Vancomycin Last Dose Date 05/19/19 Vancomycin Last Dose Time 1200 Sodium Level 138 mmol/L (136-145) Potassium Level 4.2 mmol/L (3.5-5.1) Chloride Level 104 mmol/L (98-107) Carbon Dioxide Level 20 mmol/L (21-32) Anion Gap 14 (6-14) Blood Urea Nitrogen 8 mg/dL (7-20) Creatinine 0.7 mg/dL (0.6-1.0) Estimated GFR (Cockcroft-Gault) 125.5 Glucose Level 132 mg/dL (70-99) Calcium Level 9.1 mg/dL (8.5-10.1) Microbiology 05/18/19 Blood Culture - Preliminary, Resulted NO GROWTH AFTER 1 DAY 05/17/19 Urine Culture - Final, Complete 05/17/19 Urine Culture Result 1 (OSMANI) - Final, Complete Medications Current Medications Ringer's Solution 1,000 ml @ 125 mls/hr Q8H IV ; Start 05/17/19 at 19:37 Dextrose/Lactated Ringer's 1,000 ml @ 125 mls/hr Q8H IV Last administered on 05/18/19 06:16; Start 05/17/19 at 20:30; Stop 05/18/19 at 21:58; Status DC Ampicillin Sodium 2 gm/Sodium Chloride 100 ml @ 200 mls/hr Q8HRS IV Last administered on 05/18/19 05:34; Start 05/17/19 at 22:00; Stop 05/18/19 at 13:39; Status DC Acetaminophen (Tylenol) 1,000 mg PRN Q6HRS PRN PO FEVER Last administered on 05/19/19at 00:15; Start 05/17/19 at 20:30 Albuterol Sulfate (Ventolin Neb Soln) 2.5 mg PRN Q4HRS PRN NEB SHORTNESS OF BREATH Last administered on 05/18/19at 16:53; Start 05/17/19 at 20:30 Vancomycin HCl (Vanco Per Pharmacy) 1 each PRN DAILY PRN MC SEE COMMENTS Last administered on 05/19/19at 20:17; Start 05/18/19 at 13:30 Cefepime HCl (Maxipime) 2 gm Q8HRS IVP Last administered on 05/20/19 05:54; Start 05/18/19 at 14:00 Azithromycin 250 ml @ 250 mls/hr 1X ONCE IV Last administered on 05/18/19at 16:51; Start 05/18/19 at 13:30; Stop 05/18/19 at 14:29; Status DC Methylprednisolone Sodium Succinate (SOLU-Medrol 125MG VIAL) 60 mg Q6HRS IV Last administered on 05/20/19at 05:53; Start 05/18/19 at 18:00; Stop 05/20/19 at 08:50; Status DC Budesonide (Pulmicort) 0.5 mg RTBID NEB Last administered on 05/20/19at 07:34; Start 05/18/19 at 20:00 Albuterol Sulfate (Ventolin Neb Soln) 2.5 mg PRN Q4HRS PRN NEB SHORTNESS OF BREATH; Start 05/18/19 at 16:00; Stop 05/18/19 at 17:03; Status DC Vancomycin HCl 2 gm/Sodium Chloride 500 ml @ 250 mls/hr 1X ONCE IV Last administered on 05/18/19at 19:42; Start 05/18/19 at 15:00; Stop 05/18/19 at 16:59; Status DC Dextrose/Lactated Ringer's 1,000 ml @ 75 mls/hr [id number] IV Last administered on 05/19/19at 18:10; Start 05/18/19 at 16:45 Albuterol Sulfate (Ventolin Neb Soln) 2.5 mg Q4HRS NEB Last administered on 05/20/19at 07:34; Start 05/18/19 at 20:00 Vancomycin HCl 1.25 gm/Sodium Chloride 250 ml @ 167 mls/hr Q8H IV Last administered on 05/19/19at 12:03; Start 05/19/19 at 04:00; Stop 05/19/19 at 20:17; Status DC Vancomycin HCl (Vancomycin Trough Level) 1 each 1X ONCE MC ; Start 05/19/19 at 19:30; Stop 05/19/19 at 19:31; Status DC Throat Lozenges (Cepacol Sore Throat Lozenge) 1 bj PRN Q2HRS PRN PO SORE THROAT; Start 05/18/19 at 21:45 Azithromycin (Zithromax) 500 mg DAILY PO Last administered on 05/19/19at 11:56; Start 05/19/19 at 09:00 Multivit/ Folic Acid/Iron (Multivitamin ) 1 tab DAILY PO Last administered on 05/20/19at 09:03; Start 05/19/19 at 12:00 Docusate Sodium (Colace) 100 mg BID PO Last administered on 05/20/19at 09:03; Start 05/19/19 at 12:00 Vancomycin HCl 1.5 gm/Sodium Chloride 500 ml @ 250 mls/hr Q8H IV Last administered on 05/20/19at 05:53; Start 05/19/19 at 21:00 Methylprednisolone Sodium Succinate (SOLU-Medrol 40MG VIAL) 40 mg Q6HRS IV ; Start 05/20/19 at 12:00 Fluticasone Propionate (Flonase) 2 spray DAILY NS ; Start 05/20/19 at 10:00 Active Scripts Active Proair Hfa Inhaler (Albuterol Sulfate) 8.5 Gm Hfa.aer.ad 2 Puff INH PRN Q6HRS PRN 30 Days Proair Respiclick (Albuterol Sulfate) 90 Mcg Aer.pow.ba 1 Puff IH PRN Q6HRS PRN Reported Prenatabs Rx Tablet ( Vit #76/Iron,Carb/Fa) 1 Each Tablet 1 Tab PO DAILY Vitals/I & O Vital Sign - Last 24 Hours 05/19/19 05/19/19 05/19/19 05/19/19 10:51 11:00 15:00 16:18 Temp 97.9 98.2 97.9 98.2 Pulse 120 119 Resp 20 24 B/P (MAP) 117/75 (89) 130/78 (95) Pulse Ox 93 90 90 93 O2 Delivery Nasal Cannula Nasal Cannula Room Air Nasal Cannula O2 Flow Rate 3.0 3.0 3.0 05/19/19 05/19/19 05/19/19 05/19/19 19:10 19:24 19:25 20:30 Temp 98.4 98.4 Pulse 112 Resp 20 B/P (MAP) 143/87 (105) Pulse Ox 93 93 93 O2 Delivery Nasal Cannula Nasal Cannula Nasal Cannula O2 Flow Rate 3.0 3.0 3.0 3.0 05/19/19 05/20/19 05/20/19 05/20/19 23:35 00:21 03:54 03:54 Temp 98.5 98.5 Pulse 117 112 Resp 18 20 B/P (MAP) 129/83 (98) 131/85 (100) Pulse Ox 92 93 93 93 O2 Delivery Nasal Cannula Nasal Cannula Nasal Cannula Nasal Cannula O2 Flow Rate 4.0 4.0 4.0 4.0 05/20/19 05/20/19 05/20/19 07:00 07:36 07:37 Temp 98.3 98.3 Pulse 104 Resp 20 B/P (MAP) 123/83 (96) Pulse Ox 94 93 93 O2 Delivery Nasal Cannula Nasal Cannula Nasal Cannula O2 Flow Rate 4.0 4.0 4.0 Intake and Output 05/19/19 05/19/19 05/20/19 15:00 23:00 07:00 Intake Total 200 ml 1000 ml Output Total 600 ml 300 ml Balance -600 ml -100 ml 1000 ml TAINA BERNAL MD May 20, 2019 09:53
[2019-05-20] MEDS: AZITHROMYCIN 250 MG TABLET. PO SCH (10:15)
[2019-05-20] MEDS: FLUTICASONE 50MCG/NASAL SPRAY 16GM BOTTLE. NS SCH (10:15)
[2019-05-20 11:00] VITALS: BP 125/74
--- NOTE | 2019-05-20 13:47 | PDOC ---
Infectious Disease Note Subjective Subjective Persistent cough, mostly at night Doesn't like to wear the nasal canula, says the O2 is causing some nasal congestion Eating Walking in the room some Denies F/C/S/N/V/D ROS ROS per HPI Vital Sign Vital Signs Vital Signs Date Time Temp Pulse Resp B/P (MAP) Pulse Ox O2 Delivery O2 Flow Rate FiO2 05/20/19 11:25 93 Nasal Cannula 4.0 05/20/19 11:00 98.4 116 20 125/74 (91) 98.4 Physical Exam PHYSICAL EXAM GENERAL: Lying down, alert, in NAD HEENT: oc/op clear LUNGS: Diminished aeration, no wheezes or crackles CV: S1 S2 ABDOMEN: EXT: No gross edema SKIN: Warm to touch PSYCHOLOGICAL EXAMINER: Alert, appropriate Labs Lab Laboratory Tests Test 05/19/19 19:30 05/20/19 05:05 Vancomycin Level Trough 8.8 mcg/mL (10.0-20.0) Vancomycin Last Dose Date 05/19/19 Vancomycin Last Dose Time 1200 Sodium Level 138 mmol/L (136-145) Potassium Level 4.2 mmol/L (3.5-5.1) Chloride Level 104 mmol/L (98-107) Carbon Dioxide Level 20 mmol/L (21-32) Anion Gap 14 (6-14) Blood Urea Nitrogen 8 mg/dL (7-20) Creatinine 0.7 mg/dL (0.6-1.0) Estimated GFR (Cockcroft-Gault) 125.5 Glucose Level 132 mg/dL (70-99) Calcium Level 9.1 mg/dL (8.5-10.1) Micro Microbiology 05/18/19 Blood Culture - Preliminary, Resulted NO GROWTH AFTER 1 DAY URINE CULTURE RES 1 Final No growth Objective Assessment Fever 102 on admit - normal Procalcitonin - better Mycoplasma + 05/18. Right pneumonia -Failed Doxy/Bactrim. Previously on Azithromycin/Rocephin/Soulmedrol times one. - LE U/s dopplers neg 35 weeks Sore throat - Group A strep screen neg. TSH nml Asthma - on Steroids ? residual Thymus on ct Plan Plan of Care Vanc, Cefepime and Azithromycin 05/18 - Need to cover MRSA and potential Pseudomonas as well. Taper abx soon Trough 8.8 BC neg to date F/u Sputum cult/legionella/Strep pneumo antigen pending D/w [facility] cults blood cults/strep neg and flu neg in August Attending Co-Sign The patient was seen ,interviewed as well as examined at the bedside. The chart was reviewed. The case was discussed. Agree with the above plan of care. SERAFIN RODRIGUEZ APRN May 20, 2019 13:47 ALETHEA SALAS MD May 20, 2019 15:22
[2019-05-20] MEDS: methylPREDNISolone SOD SUCC PF 40 MG/ML VIAL. IV SCH ×3 (14:04→23:37)
[2019-05-20] MEDS: IV DEXTROSE 5%-LACT RINGERS 1,000 ML IV SCH ×2 (14:11→23:38)
[2019-05-20 15:00] VITALS: BP 118/74
[2019-05-20 19:57] VITALS: BP 127/89
[2019-05-20 23:36] VITALS: BP 118/75
[2019-05-21 03:10] VITALS: BP 137/83
[2019-05-21] MEDS: ALBUTEROL SULFATE 2.5 MG/3 ML NEBU. NEB SCH ×6 (04:00→20:29)
[2019-05-21] MEDS: IV RINGERS,LACTATED 1000ML 1,000 ML IV SCH ×3 (04:01→21:38)
[2019-05-21] MEDS: VANCOMYCIN 1.5 GM in IV NORMAL SALINE 500ML BAG 500 ML IV SCH (06:02)
[2019-05-21] MEDS: methylPREDNISolone SOD SUCC PF 40 MG/ML VIAL. IV SCH ×2 (06:02→21:37)
[2019-05-21] MEDS: CEFEPIME HCL IV Push 2 GM VIAL. IVP SCH (06:02)
[2019-05-21 07:00] VITALS: BP 121/80
[2019-05-21] MEDS: BUDESONIDE 0.5 MG/2 ML NEBU. NEB SCH ×2 (07:45→20:29)
[2019-05-21] MEDS: DOCUSATE SODIUM 100 MG CAPSULE. PO SCH ×2 (09:00→21:00)
--- NOTE | 2019-05-21 09:18 | PDOC ---
PULMONARY PROGRESS NOTES Subjective sob better, has cough, has yellow nasal drainage Vitals Vital Signs Date Time Temp Pulse Resp B/P (MAP) Pulse Ox O2 Delivery O2 Flow Rate FiO2 05/21/19 08:05 94 Room Air 05/21/19 07:00 98.2 96 18 121/80 (94) 2.0 98.2 ROS: No Nausea General: Alert, Oriented X4 Lungs: Clear Cardiovascular: S1, S2 Abdomen: Soft, Non-tender, Other (preganant) Neuro Exam: Alert Extremities: No Edema Skin: Warm Labs Laboratory Tests Test 05/19/19 19:30 05/20/19 05:05 Vancomycin Level Trough 8.8 mcg/mL (10.0-20.0) Vancomycin Last Dose Date 05/19/19 Vancomycin Last Dose Time 1200 Sodium Level 138 mmol/L (136-145) Potassium Level 4.2 mmol/L (3.5-5.1) Chloride Level 104 mmol/L (98-107) Carbon Dioxide Level 20 mmol/L (21-32) Anion Gap 14 (6-14) Blood Urea Nitrogen 8 mg/dL (7-20) Creatinine 0.7 mg/dL (0.6-1.0) Estimated GFR (Cockcroft-Gault) 125.5 Glucose Level 132 mg/dL (70-99) Calcium Level 9.1 mg/dL (8.5-10.1) Medications Active Scripts Medications Dose Route/Sig Max Daily Dose Days Date Category Proair Hfa Inhaler (Albuterol Sulfate) 8.5 Gm Hfa.aer.ad 2 Puff INH PRN Q6HRS PRN 30 01/22/19 Rx Proair Respiclick (Albuterol Sulfate) 90 Mcg Aer.pow.ba 1 Puff IH PRN Q6HRS PRN 02/09/17 Rx Prenatabs Rx Tablet ( Vit #76/Iron,Carb/Fa) 1 Each Tablet 1 Tab PO DAILY 07/27/14 Reported Impression . IMPRESSION: 1. Acute hypoxic respiratory failure secondary to Mycoplasma pneumoniae in a patient who is 35 weeks . 2. The patient with adult-onset asthma, which is usually triggered by respiratory tract infections. Previous did not trigger her asthma. This hospitalization with asthma exacerbation is triggered by her right lower lobe Mycoplasma pneumoniae. 3. Abnormal CT chest with right lower lobe consolidation consistent with pneumonia. Plan . RECOMMENDATIONS: 1. Continue with oxygen at 3 liters and gradually wean FiO2 to keep saturation 96 and above. 2. Vanc, Cefepime and Azithromycin /12 - Need to cover MRSA and potential Pseudomonas as well. Taper abx soon per id. 3. Continue albuterol nebs along with Pulmicort. 4. change solumedrol to 40 q 12 hrs 5. We will monitor the clinical response to treatment. 6. Her toolmaker grade three to follow her while she is in the hospital. 7. cont flonase for nasal congestion discussed w YU Tolbert MD May 21, 2019 09:18
[2019-05-21] MEDS: PRENATAL MULTIVITAMIN TABLET. PO SCH (09:21)
[2019-05-21] MEDS: FLUTICASONE 50MCG/NASAL SPRAY 16GM BOTTLE. NS SCH (09:22)
[2019-05-21] MEDS: AZITHROMYCIN 250 MG TABLET. PO SCH (09:22)
--- NOTE | 2019-05-21 10:55 | PDOC ---
PROGRESS NOTES History of Present Illness History of Present Illness Images Images CTPA - 1. The study is severely limited for detection of pulmonary emboli due to a combination of patient body habitus and extensive respiratory motion. Particularly at the bilateral lower lobes, right middle lobe and lingula, the segmental and subsegmental vessels are not evaluated. No saddle embolism or main pulmonary artery embolism is present. No main pulmonary artery dilatation or findings of right heart strain. 2. Consolidation within the right middle lobe extending along the bronchovascular structures to the pleura at the posterior/medial aspect. This is concerning for pneumonia given the configuration and would be somewhat atypical for a pulmonary infarct but the latter is not entirely excluded as the pulmonary arteries to this region are not well evaluated. Recommend correlation for any symptoms or laboratory findings that would suggest an underlying infection. 3. Several prominent lymph nodes such as at the right hilum and right infrahilar region are indeterminant and may be reactive to an underlying infection. Also noted is soft tissue fullness at the anterior mediastinum. There is no mass effect on the adjacent vasculature and this could represent residual thymic tissue but patient body habitus and motion make it difficult to discern if there is intermixed fat. It is recommended that follow-up be performed to confirm stability of this finding and the lymph nodes as well as DrJuana resolution of the right lower lobe finding. 4. Mildly prominent spleen. The liver appears to be somewhat prominent as well. VTE Prophylaxis Ordered VTE Prophylaxis Devices: No VTE Pharmacological Prophylaxi: No impression acute hypoxic resp failure Shortness of breath - likely asthma, , and pneumonia related. Will treat. ID and Pulm following as well Hypoxia WITH ACUTE RESPIRATORY FAILURE - likely from pneumonia, will wean as tolerated. IS, ambulate Right middle lobe infiltrate - failed outpatient doxycycline, bactrim, azithromycin, and rocephin. Should be on azithromycin for atypical coverage and agree with cefepime after d/w ID Sepsis - with fever 102F, tachycardia, blood cultures x2, sputum culture, legionella and mycoplasma. Procalcitonin 35 weeks - [employer] following Sore throat - cepacol Asthma - nebulizers, pulmicort BID, wean O2 as tolerated. Consulted pulmonology FEN - General diet PPX - SCDs FULL CODE Dispo - inpatient for pneumonia failing outpatient therapy. cover MRSA and potential Pseudomonas, mycoplasma FLONASE NS DAILY ON CTA Consolidation within the right middle lobe extending along the bronchovascular structures to the pleura at the posterior/medial aspect. This is concerning for pneumonia given the configuration and would be somewhat atypical for a pulmonary infarct but the latter is not entirely excluded as the pulmonary arteries to this region are not well evaluated. 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 Automated exposure control 2. Adjustment of the mA and/or kV according to patient size 3. Use of iterative reconstruction technique. Findings: The study is significantly degraded for the detection of pulmonary emboli due to a combination of body habitus and respiratory motion. This renders the segmental and subsegmental vessels essentially unable to be evaluated for pulmonary emboli particularly at the lower lobes. No saddle embolism or main pulmonary artery embolism is seen. No pulmonary embolism is identified to the upper lungs noting that these vessels are better evaluated due to less pronounced respiratory motion. The pulmonary arteries to the right middle lobe, lingula and bilateral lower lobes are very poorly evaluated. There is intermittent loss of visualization of these vessels which is indeterminant. Note is made that there is no main pulmonary artery dilatation and the interventricular septum is not deviated. There is no reflux of injected contrast into the hepatic veins. Right lower lobe opacity extending along the bronchovascular structures to the posterior/medial right lower lobe and extending to the pleura. Linear opacities to a much lesser degree are present within the left lower lobe extending to the pleura. No pleural effusion or pneumothorax. Soft tissue fullness at the anterior mediastinum that does not exhibit mass effect on the adjacent vasculature. Mildly prominent right hilar lymph nodes particularly to the right lower lobe. At the central right hilum, lymph node appears to measure up to 1.7 cm on image 46 series 3. Mildly prominent but not pathologically enlarged axillary lymph nodes. Paratracheal lymph node at the level of the thoracic inlet on image 15 series 3 measures up to 1.2 cm. Subcarinal lymph node at 1.3 cm. The spleen is mildly enlarged at 13 cm. The liver appears to be prominent in size as well but is only partially visualized. IMPRESSION: 1. The study is severely limited for detection of pulmonary emboli due to a combination of patient body habitus and extensive respiratory motion. Particularly at the bilateral lower lobes, right middle lobe and lingula, the segmental and subsegmental vessels are not evaluated. No saddle embolism or main pulmonary artery embolism is present. No main pulmonary artery dilatation or findings of right heart strain. 2. Consolidation within the right middle lobe extending along the bronchovascular structures to the pleura at the posterior/medial aspect. This is concerning for pneumonia given the configuration and would be somewhat atypical for a pulmonary infarct but the latter is not entirely excluded as the pulmonary arteries to this region are not well evaluated. Recommend correlation for any symptoms or laboratory findings that would suggest an underlying infection. 3. Several prominent lymph nodes such as at the right hilum and right infrahilar region are indeterminant and may be reactive to an underlying infection. Also noted is soft tissue fullness at the anterior mediastinum. There is no mass effect on the adjacent vasculature and this could represent residual thymic tissue but patient body habitus and motion make it difficult to discern if there is intermixed fat. It is recommended that follow-up be performed to confirm stability of this finding and the lymph nodes as well as Dr. resolution of the right lower lobe finding. 4. Mildly prominent spleen. The liver appears to be somewhat prominent as well. Electronically signed by: STANLEY BRYANT MD (05/15/2019 10:11 PM) [facility] DICTATED and SIGNED BY: STANLEY BRYANT MD DATE: 05/15/192210 SPEC #: [id number] LUIS MIGUEL: 05/17/19 STATUS: COMP REQ #: [id number] RECD: 05/17/[address]: FABRICIO COLLADO MD SOURCE: VOID ENTR: 05/17/[address]: HERNANDEZ GTZ Jr, MD SPDESC: MARQUEZ VASQUEZ APRN ORDERED: URINE CULTURE Procedure Result URINE CULTURE Final Final report URINE CULTURE RES 1 Final No growth Performed at: - [address], [place], [place] [id number] Personal Investment Adviser: NABOR Nick MD, Phone: [phone] Procedure Result -- GRAM STAIN WHITE BLOOD CELLS Final Few GRAM STAIN EPITHELIAL CELLS Final Few GRAM STAIN RESULT 1 Final Comment Few gram positive cocci GRAM STAIN RESULT 2 Preliminary Test not performed GRAM STAIN RESULT 3 Preliminary Test not performed GRAM STAIN RESULT 4 Preliminary Test not performed GRAM STAIN EVALUATION Final Comment This specimen is of good quality and is acceptable for routine bacterial culture. Performed at: [address], [place] [id number] Personal Investment Adviser: NABOR Nick MD, Phone: [phone] SPUTUM CULTURE-LC Final Final report SPUTUM CULT RES 1 Final Comment Routine respiratory marion Performed at: [address], [place], [place] [id number] Personal Investment Adviser: NABOR Nick MD, Phone: [phone] --- Comment Review of Relevant I have reviewed the following items nolan (where applicable) has been applied. Labs Laboratory Tests Test 05/19/19 19:30 05/20/19 05:05 Vancomycin Level Trough 8.8 mcg/mL (10.0-20.0) Vancomycin Last Dose Date 05/19/19 Vancomycin Last Dose Time 1200 Sodium Level 138 mmol/L (136-145) Potassium Level 4.2 mmol/L (3.5-5.1) Chloride Level 104 mmol/L (98-107) Carbon Dioxide Level 20 mmol/L (21-32) Anion Gap 14 (6-14) Blood Urea Nitrogen 8 mg/dL (7-20) Creatinine 0.7 mg/dL (0.6-1.0) Estimated GFR (Cockcroft-Gault) 125.5 Glucose Level 132 mg/dL (70-99) Calcium Level 9.1 mg/dL (8.5-10.1) Microbiology 05/19/19 - Final, Resulted 05/19/19 - Final, Resulted 05/19/19 - Final, Resulted 05/19/19 - Preliminary, Resulted 05/19/19 - Preliminary, Resulted 05/19/19 - Preliminary, Resulted 05/19/19 Gram Stain Evaluation - Final, Resulted 05/19/19 Sputum Culture, Resulted Pending 05/18/19 Blood Culture - Preliminary, Resulted NO GROWTH AFTER 2 DAYS 05/17/19 Urine Culture - Final, Complete 05/17/19 Urine Culture Result 1 (OSMANI) - Final, Complete Medications Current Medications Ringer's Solution 1,000 ml @ 125 mls/hr Q8H IV ; Start 05/17/19 at 19:37 Dextrose/Lactated Ringer's 1,000 ml @ 125 mls/hr Q8H IV Last administered on 05/18/19 06:16; Start 05/17/19 at 20:30; Stop 05/18/19 at 21:58; Status DC Ampicillin Sodium 2 gm/Sodium Chloride 100 ml @ 200 mls/hr Q8HRS IV Last administered on 05/18/19at 05:34; Start 05/17/19 at 22:00; Stop 05/18/19 at 13:39; Status DC Acetaminophen (Tylenol) 1,000 mg PRN Q6HRS PRN PO FEVER Last administered on 05/19/19at 00:15; Start 05/17/19 at 20:30 Albuterol Sulfate (Ventolin Neb Soln) 2.5 mg PRN Q4HRS PRN NEB SHORTNESS OF BREATH Last administered on 05/18/19at 16:53; Start 05/17/19 at 20:30 Vancomycin HCl (Vanco Per Pharmacy) 1 each PRN DAILY PRN MC SEE COMMENTS Last administered on 05/19/19at 20:17; Start 05/18/19 at 13:30 Cefepime HCl (Maxipime) 2 gm Q8HRS IVP Last administered on 05/21/19at 06:02; Start 05/18/19 at 14:00 Azithromycin 250 ml @ 250 mls/hr 1X ONCE IV Last administered on 05/18/19at 16:51; Start 05/18/19 at 13:30; Stop 05/18/19 at 14:29; Status DC Methylprednisolone Sodium Succinate (SOLU-Medrol 125MG VIAL) 60 mg Q6HRS IV Last administered on 05/20/19at 05:53; Start 05/18/19 at 18:00; Stop 05/20/19 at 08:50; Status DC Budesonide (Pulmicort) 0.5 mg RTBID NEB Last administered on 05/21/19at 07:45; Start 05/18/19 at 20:00 Albuterol Sulfate (Ventolin Neb Soln) 2.5 mg PRN Q4HRS PRN NEB SHORTNESS OF BREATH; Start 05/18/19 at 16:00; Stop 05/18/19 at 17:03; Status DC Vancomycin HCl 2 gm/Sodium Chloride 500 ml @ 250 mls/hr 1X ONCE IV Last administered on 05/18/19at 19:42; Start 05/18/19 at 15:00; Stop 05/18/19 at 16:59; Status DC Dextrose/Lactated Ringer's 1,000 ml @ 75 mls/hr [id number] IV Last administered on 05/20/19at 23:38; Start 05/18/19 at 16:45 Albuterol Sulfate (Ventolin Neb Soln) 2.5 mg Q4HRS NEB Last administered on 05/21/19at 07:45; Start 05/18/19 at 20:00 Vancomycin HCl 1.25 gm/Sodium Chloride 250 ml @ 167 mls/hr Q8H IV Last administered on 05/19/19at 12:03; Start 05/19/19 at 04:00; Stop 05/19/19 at 20:17; Status DC Vancomycin HCl (Vancomycin Trough Level) 1 each 1X ONCE MC ; Start 05/19/19 at 19:30; Stop 05/19/19 at 19:31; Status DC Throat Lozenges (Cepacol Sore Throat Lozenge) 1 bj PRN Q2HRS PRN PO SORE THROAT; Start 05/18/19 at 21:45 Azithromycin (Zithromax) 500 mg DAILY PO Last administered on 05/21/19at 09:22; Start 05/19/19 at 09:00 Multivit/ Folic Acid/Iron (Multivitamin ) 1 tab DAILY PO Last administered on 05/21/19at 09:21; Start 05/19/19 at 12:00 Docusate Sodium (Colace) 100 mg BID PO Last administered on 05/20/19 09:03; Start 05/19/19 at 12:00 Vancomycin HCl 1.5 gm/Sodium Chloride 500 ml @ 250 mls/hr Q8H IV Last administered on 05/21/19at 06:02; Start 05/19/19 at 21:00 Methylprednisolone Sodium Succinate (SOLU-Medrol 40MG VIAL) 40 mg Q6HRS IV Last administered on 05/21/19at 06:02; Start 05/20/19 at 12:00; Stop 05/21/19 at 09:19; Status DC Fluticasone Propionate (Flonase) 2 spray DAILY NS Last administered on 05/21/19at 09:22; Start 05/20/19 at 10:00 Vancomycin HCl (Vancomycin Trough Level) 1 each 1X ONCE MC ; Start 05/21/19 at 12:30; Stop 05/21/19 at 12:31 Methylprednisolone Sodium Succinate (SOLU-Medrol 40MG VIAL) 40 mg Q12HR IV ; Start 05/21/19 at 21:00 Active Scripts Active Proair Hfa Inhaler (Albuterol Sulfate) 8.5 Gm Hfa.aer.ad 2 Puff INH PRN Q6HRS PRN 30 Days Proair Respiclick (Albuterol Sulfate) 90 Mcg Aer.pow.ba 1 Puff IH PRN Q6HRS PRN Reported Prenatabs Rx Tablet ( Vit #76/Iron,Carb/Fa) 1 Each Tablet 1 Tab PO DAILY Vitals/I & O Vital Sign - Last 24 Hours 05/20/19 05/20/19 05/20/19 05/20/19 11:00 11:25 15:00 15:02 Temp 98.4 98.4 98.4 98.4 Pulse 116 110 Resp 20 20 B/P (MAP) 125/74 (91) 118/74 (89) Pulse Ox 93 93 91 O2 Delivery Nasal Cannula Nasal Cannula Nasal Cannula O2 Flow Rate 4.0 4.0 2.0 4.0 05/20/19 05/20/19 05/20/19 05/21/19 19:57 20:05 23:36 03:10 Temp 98.2 98.1 98.1 98.2 98.1 98.1 Pulse 117 103 101 Resp 20 18 18 B/P (MAP) 127/89 (102) 118/75 (89) 137/83 (101) Pulse Ox 91 92 92 O2 Delivery Room Air Nasal Cannula Room Air Nasal Cannula O2 Flow Rate 2.0 2.0 12/05/21/19 05/21/19 07:00 08:00 08:05 Temp 98.2 98.2 Pulse 96 Resp 18 B/P (MAP) 121/80 (94) Pulse Ox 92 94 O2 Delivery Nasal Cannula Nasal Cannula Room Air O2 Flow Rate 2.0 2.0 Intake and Output 05/20/19 05/20/19 05/21/19 15:00 23:00 07:00 Intake Total 900 ml Output Total 400 ml Balance -400 ml 900 ml TAINA BERNAL MD May 21, 2019 10:55
[2019-05-21 11:00] VITALS: BP 190/60
[2019-05-21] MEDS: IV DEXTROSE 5%-LACT RINGERS 1,000 ML IV SCH (11:25)
[2019-05-21 12:54] LABS: VANC TR 15.4 mcg/mL (10.0-20.0)
--- NOTE | 2019-05-21 13:03 | PDOC ---
Infectious Disease Note Subjective Subjective Feeling better Persistent cough, mostly at night Doesn't like to wear the nasal canula, says the O2 is causing some nasal congestion Eating Walking in the room some Feels baby kicking Denies F/C/S/N/V/D ROS ROS per HPI Vital Sign Vital Signs Vital Signs Date Time Temp Pulse Resp B/P (MAP) Pulse Ox O2 Delivery O2 Flow Rate FiO2 05/21/19 12:33 91 Room Air 05/21/19 11:00 97.5 60 18 190/60 (103) 2.0 97.5 Physical Exam PHYSICAL EXAM GENERAL: Lying down, alert, in NAD HEENT: oc/op clear LUNGS: Diminished aeration CV: S1 S2 ABDOMEN: EXT: No gross edema SKIN: Warm to touch 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 Right pneumonia -Failed Doxy/Bactrim. Previously on Azithromycin/Rocephin/Soulmedrol times one. - LE U/s dopplers neg 35 weeks Sore throat - Group A strep screen neg. TSH nml Asthma - on Steroids ? residual Thymus on ct Plan Plan of Care D/c Azithromycin (05/18) - Vanc and Cefepime. Need to cover MRSA and potential Pseudomonas as well. Taper abx soon Trough 8.8 BC neg to date Sputum cult neg legionella/Strep pneumo antigen pending D/w [facility] cults blood cults/strep neg and flu neg in August Attending Co-Sign The patient was seen and interviewed as well as examined at the bedside. The chart was reviewed. The case was discussed. Agree with the plan of care. SERAFIN RODRIGUEZ APRN May 21, 2019 13:03 MELINA SALAS MD May 21, 2019 13:23
[2019-05-21] MEDS: VANCOMYCIN PER PHARMACY MC PRN (13:12)
--- NOTE | 2019-05-21 13:12 | NUR ---
Pharmacy Vancomycin Dosing Note S: Consulted to monitor and dose vancomycin started 05/18/19. O: JOSÉNILAY is a 23 year old F with Pneumonia, MRSA/PSEUDOMONAS . Other Antibiotics: CEFEPIME 2GM Q8HRS LABS: Last BUN: 6 Last Creatinine: 0.7 Creatinine Clearance: 162 mL/min Last WBC: 6.5 Tmax (past 24 hours): 98.2 Drug Levels: Last Trough level: 15.4 on 05/21/19 at 1215 Last dose given 05/21/19 at 0602 Vancomycin Dosing: Dosing Weight: Actual Target Trough: 15-20 A: Based on: THERAPEUTIC TROUGH P: 1. Continue Vancomycin 1500 mg IV q8h 2. Follow up Trough level in 5-7 days 3. Pharmacy will continue to monitor, follow and adjust therapy as needed. SINDY PALAFOX RPH, 05/21/19 [id number]
--- NOTE | 2019-05-21 13:18 | PDOC ---
Infectious Disease Note Subjective Subjective Feeling better Persistent cough, mostly at night Doesn't like to wear the nasal canula, says the O2 is causing some nasal congestion Eating Walking in the room some Feels baby kicking Denies F/C/S/N/V/D Vital Sign Vital Signs Vital Signs Date Time Temp Pulse Resp B/P (MAP) Pulse Ox O2 Delivery O2 Flow Rate FiO2 05/21/19 12:33 91 Room Air 05/21/19 11:00 97.5 60 18 190/60 (103) 2.0 97.5 Physical Exam PHYSICAL EXAM GENERAL: Lying down, alert, in NAD HEENT: oc/op clear LUNGS: Diminished aeration CV: S1 S2 ABDOMEN: EXT: No gross edema SKIN: Warm to touch 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, appropriate IV out Labs Lab Laboratory Tests Test 05/21/19 12:15 Vancomycin Level Trough 15.4 mcg/mL (10.0-20.0) Vancomycin Last Dose Date 05-21-19 Vancomycin Last Dose Time 0500 Micro Microbiology 05/19/19 - Final, Resulted 05/19/19 - Final, Resulted 05/19/19 - Final, Resulted 05/19/19 - Preliminary, Resulted 05/19/19 - Preliminary, Resulted 05/19/19 - Preliminary, Resulted 05/19/19 Gram Stain Evaluation - Final, Resulted 05/19/19 Sputum Culture - Final, Resulted 05/19/19 Sputum Result 1 - Final, Resulted 05/18/19 Blood Culture - Preliminary, Resulted NO GROWTH AFTER 2 DAYS 05/17/19 Urine Culture - Final, Complete 05/17/19 Urine Culture Result 1 (OSMANI) - Final, Complete Objective Assessment Fever 102 on admit - normal Procalcitonin - better Mycoplasma + 05/18. Right pneumonia -Failed Doxy/Bactrim. Previously on Azithromycin/Rocephin/Soulmedrol times one. - LE U/s dopplers neg 35 weeks Sore throat - Group A strep screen neg. TSH nml Asthma - on Steroids ? residual Thymus on ct Plan Plan of Care D/c Azithromycin (05/18) - Vanc and Cefepime. Need to cover MRSA and potential Pseudomonas as well. Taper abx soon Trough 8.8 BC neg to date Sputum cult neg legionella/Strep pneumo antigen pending d/c vanc D/w [facility] cults blood cults/strep neg and flu neg in March MELINA SALAS MD May 21, 2019 13:18
[2019-05-21 15:00] VITALS: BP 128/84
[2019-05-21 19:15] VITALS: BP 134/84
[2019-05-21] MEDS: AMOXICILLIN/K CLAV 875/125MG TABLET. PO SCH (21:37)
[2019-05-21 23:51] VITALS: BP 112/68
[2019-05-22] MEDS: IV DEXTROSE 5%-LACT RINGERS 1,000 ML IV SCH (00:45)
[2019-05-22 03:05] VITALS: BP 127/73
[2019-05-22] MEDS: IV RINGERS,LACTATED 1000ML 1,000 ML IV SCH ×2 (03:37→11:12)
[2019-05-22 03:39] LABS: BASO % 0 % (0-3); EOS % 0 % (0-3); HEMATOCRIT 31.5 % (36.0-47.0); HEMOGLOBIN 10.3 g/dL (12.0-15.5); LYMPH # 2.2 x10^3/uL (1.0-4.8); LYMPH % 19 % (24-48); MEAN CORPUSCULAR HEMOGLOBIN 30 pg (25-35); MEAN CORPUSCULAR HGB CONC 33 g/dL (31-37); MEAN CORPUSCULAR VOLUME 90 fL (79-100); MONO # 1.2 x10^3/uL (0.0-1.1); MONO % 11 % (0-9); NEUT # 8.3 x10^3/uL (1.8-7.7); NEUT % 70 % (31-73); PLATELET COUNT 283 x10^3/uL (140-400); WHITE BLOOD COUNT 11.8 x10^3/uL (4.0-11.0)
[2019-05-22 04:17] LABS: ALBUMIN 2.2 g/dL (3.4-5.0); ALBUMIN/GLOBULIN RATIO 0.5 (1.0-1.7); CALCIUM 8.6 mg/dL (8.5-10.1); CREATININE 0.6 mg/dL (0.6-1.0); GFR 149.9; POTASSIUM 4.2 mmol/L (3.5-5.1); TOTAL BILIRUBIN 0.2 mg/dL (0.2-1.0); TOTAL PROTEIN 6.3 g/dL (6.4-8.2)
[2019-05-22] MEDS: ALBUTEROL SULFATE 2.5 MG/3 ML NEBU. NEB SCH ×4 (04:48→11:22)
[2019-05-22] MEDS: ACETAMINOPHEN 500 MG TABLET PO PRN (06:35)
[2019-05-22 07:00] VITALS: BP 119/84
[2019-05-22] MEDS: BUDESONIDE 0.5 MG/2 ML NEBU. NEB SCH (08:00)
--- NOTE | 2019-05-22 08:26 | PDOC ---
PROGRESS NOTES History of Present Illness History of Present Illness Images Images CTPA - 1. The study is severely limited for detection of pulmonary emboli due to a combination of patient body habitus and extensive respiratory motion. Particularly at the bilateral lower lobes, right middle lobe and lingula, the segmental and subsegmental vessels are not evaluated. No saddle embolism or main pulmonary artery embolism is present. No main pulmonary artery dilatation or findings of right heart strain. 2. Consolidation within the right middle lobe extending along the bronchovascular structures to the pleura at the posterior/medial aspect. This is concerning for pneumonia given the configuration and would be somewhat atypical for a pulmonary infarct but the latter is not entirely excluded as the pulmonary arteries to this region are not well evaluated. Recommend correlation for any symptoms or laboratory findings that would suggest an underlying infection. 3. Several prominent lymph nodes such as at the right hilum and right infrahilar region are indeterminant and may be reactive to an underlying infection. Also noted is soft tissue fullness at the anterior mediastinum. There is no mass effect on the adjacent vasculature and this could represent residual thymic tissue but patient body habitus and motion make it difficult to discern if there is intermixed fat. It is recommended that follow-up be performed to confirm stability of this finding and the lymph nodes as well as DrJuana amin of the right lower lobe finding. 4. Mildly prominent spleen. The liver appears to be somewhat prominent as well. VTE Prophylaxis Ordered VTE Prophylaxis Devices: No VTE Pharmacological Prophylaxi: No DISCHARGE DX acute hypoxic resp failure Shortness of breath - likely asthma, , and pneumonia related. Will treat. ID and Pulm following as well Hypoxia WITH ACUTE RESPIRATORY FAILURE - likely from pneumonia, will wean as tolerated. IS, ambulate Right middle lobe infiltrate - failed outpatient doxycycline, bactrim, azithromycin, and rocephin. Should be on azithromycin for atypical coverage and agree with cefepime after d/w ID Sepsis - with fever 102F, tachycardia, blood cultures x2, sputum culture, legionella and mycoplasma. 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 Consulted pulmonology FEN - General diet PPX - SCDs FULL CODE Dispo - inpatient for pneumonia failing outpatient therapy. cover MRSA and potential Pseudomonas, mycoplasma FLONASE NS DAILY NEBULIZER AT HOME AUGMENTIN PO BID X 5 DAYS ON CTA Consolidation within the right middle lobe extending along the bronchovascular structures to the pleura at the posterior/medial aspect. This is concerning for pneumonia given the configuration and would be somewhat atypical for a pulmonary infarct but the latter is not entirely excluded as the pulmonary arteries to this region are not well evaluated. mycoplasma igm pos 36 min pt exam D/C PLANNING TIME, chart review, > 50% of time spent with exam, chart review, pt care coordination Vitals Vitals Vital Signs Date Time Temp Pulse Resp B/P (MAP) Pulse Ox O2 Delivery O2 Flow Rate FiO2 05/22/19 07:00 97.3 101 18 119/84 (96) 98 Room Air 97.3 05/21/19 15:00 2.0 Physical Exam Physical Exam GENERAL: Lying down, alert, in NAD HEENT: oc/op clear LUNGS: Diminished aeration CV: S1 S2 ABDOMEN: EXT: No gross edema SKIN: Warm to touch BLOCKER AND SEWER: Alert, appropriate IV out General: Alert, Oriented X3, Cooperative, No acute distress, mild distress Lungs: Clear Abdomen: Normal bowel sounds, Soft, No tenderness, No hepatosplenomegaly, No masses Extremities: No clubbing, No cyanosis, No edema, Normal pulses, No tenderness/swelling Skin: No rashes, No breakdown, No significant lesion Labs LABS Laboratory Tests Test 05/21/19 12:15 05/22/19 02:30 Vancomycin Level Trough 15.4 mcg/mL (10.0-20.0) Vancomycin Last Dose Date 05-21-19 Vancomycin Last Dose Time 0500 White Blood Count 11.8 x10^3/uL (4.0-11.0) Red Blood Count 3.50 x10^6/uL (3.50-5.40) Hemoglobin 10.3 g/dL (12.0-15.5) Hematocrit 31.5 % (36.0-47.0) Mean Corpuscular Volume 90 fL (79-100) Mean Corpuscular Hemoglobin 30 pg (25-35) Mean Corpuscular Hemoglobin Concent 33 g/dL (31-37) Red Cell Distribution Width 15.0 % (11.5-14.5) Platelet Count 283 x10^3/uL (140-400) Neutrophils (%) (Auto) 70 % (31-73) Lymphocytes (%) (Auto) 19 % (24-48) Monocytes (%) (Auto) 11 % (0-9) Eosinophils (%) (Auto) 0 % (0-3) Basophils (%) (Auto) 0 % (0-3) Neutrophils # (Auto) 8.3 x10^3/uL (1.8-7.7) Lymphocytes # (Auto) 2.2 x10^3/uL (1.0-4.8) Monocytes # (Auto) 1.2 x10^3/uL (0.0-1.1) Eosinophils # (Auto) 0.0 x10^3/uL (0.0-0.7) Basophils # (Auto) 0.0 x10^3/uL (0.0-0.2) Sodium Level 139 mmol/L (136-145) Potassium Level 4.2 mmol/L (3.5-5.1) Chloride Level 106 mmol/L (98-107) Carbon Dioxide Level 22 mmol/L (21-32) Anion Gap 11 (6-14) Blood Urea Nitrogen 10 mg/dL (7-20) Creatinine 0.6 mg/dL (0.6-1.0) Estimated GFR (Cockcroft-Gault) 149.9 BUN/Creatinine Ratio 17 (6-20) Glucose Level 103 mg/dL (70-99) Calcium Level 8.6 mg/dL (8.5-10.1) Total Bilirubin 0.2 mg/dL (0.2-1.0) Aspartate Amino Transf (AST/SGOT) 23 U/L (15-37) Alanine Aminotransferase (ALT/SGPT) 23 U/L (14-59) Alkaline Phosphatase 106 U/L (46-116) Total Protein 6.3 g/dL (6.4-8.2) Albumin 2.2 g/dL (3.4-5.0) Albumin/Globulin Ratio 0.5 (1.0-1.7) Comment Review of Relevant I have reviewed the following items nolan (where applicable) has been applied. Labs Laboratory Tests Test 05/21/19 12:15 05/22/19 02:30 Vancomycin Level Trough 15.4 mcg/mL (10.0-20.0) Vancomycin Last Dose Date 05-21-19 Vancomycin Last Dose Time 0500 White Blood Count 11.8 x10^3/uL (4.0-11.0) Red Blood Count 3.50 x10^6/uL (3.50-5.40) Hemoglobin 10.3 g/dL (12.0-15.5) Hematocrit 31.5 % (36.0-47.0) Mean Corpuscular Volume 90 fL (79-100) Mean Corpuscular Hemoglobin 30 pg (25-35) Mean Corpuscular Hemoglobin Concent 33 g/dL (31-37) Red Cell Distribution Width 15.0 % (11.5-14.5) Platelet Count 283 x10^3/uL (140-400) Neutrophils (%) (Auto) 70 % (31-73) Lymphocytes (%) (Auto) 19 % (24-48) Monocytes (%) (Auto) 11 % (0-9) Eosinophils (%) (Auto) 0 % (0-3) Basophils (%) (Auto) 0 % (0-3) Neutrophils # (Auto) 8.3 x10^3/uL (1.8-7.7) Lymphocytes # (Auto) 2.2 x10^3/uL (1.0-4.8) Monocytes # (Auto) 1.2 x10^3/uL (0.0-1.1) Eosinophils # (Auto) 0.0 x10^3/uL (0.0-0.7) Basophils # (Auto) 0.0 x10^3/uL (0.0-0.2) Sodium Level 139 mmol/L (136-145) Potassium Level 4.2 mmol/L (3.5-5.1) Chloride Level 106 mmol/L (98-107) Carbon Dioxide Level 22 mmol/L (21-32) Anion Gap 11 (6-14) Blood Urea Nitrogen 10 mg/dL (7-20) Creatinine 0.6 mg/dL (0.6-1.0) Estimated GFR (Cockcroft-Gault) 149.9 BUN/Creatinine Ratio 17 (6-20) Glucose Level 103 mg/dL (70-99) Calcium Level 8.6 mg/dL (8.5-10.1) Total Bilirubin 0.2 mg/dL (0.2-1.0) Aspartate Amino Transf (AST/SGOT) 23 U/L (15-37) Alanine Aminotransferase (ALT/SGPT) 23 U/L (14-59) Alkaline Phosphatase 106 U/L (46-116) Total Protein 6.3 g/dL (6.4-8.2) Albumin 2.2 g/dL (3.4-5.0) Albumin/Globulin Ratio 0.5 (1.0-1.7) Laboratory Tests Test 05/21/19 12:15 05/22/19 02:30 Vancomycin Level Trough 15.4 mcg/mL (10.0-20.0) Vancomycin Last Dose Date 05-21-19 Vancomycin Last Dose Time 0500 White Blood Count 11.8 x10^3/uL (4.0-11.0) Red Blood Count 3.50 x10^6/uL (3.50-5.40) Hemoglobin 10.3 g/dL (12.0-15.5) Hematocrit 31.5 % (36.0-47.0) Mean Corpuscular Volume 90 fL (79-100) Mean Corpuscular Hemoglobin 30 pg (25-35) Mean Corpuscular Hemoglobin Concent 33 g/dL (31-37) Red Cell Distribution Width 15.0 % (11.5-14.5) Platelet Count 283 x10^3/uL (140-400) Neutrophils (%) (Auto) 70 % (31-73) Lymphocytes (%) (Auto) 19 % (24-48) Monocytes (%) (Auto) 11 % (0-9) Eosinophils (%) (Auto) 0 % (0-3) Basophils (%) (Auto) 0 % (0-3) Neutrophils # (Auto) 8.3 x10^3/uL (1.8-7.7) Lymphocytes # (Auto) 2.2 x10^3/uL (1.0-4.8) Monocytes # (Auto) 1.2 x10^3/uL (0.0-1.1) Eosinophils # (Auto) 0.0 x10^3/uL (0.0-0.7) Basophils # (Auto) 0.0 x10^3/uL (0.0-0.2) Sodium Level 139 mmol/L (136-145) Potassium Level 4.2 mmol/L (3.5-5.1) Chloride Level 106 mmol/L (98-107) Carbon Dioxide Level 22 mmol/L (21-32) Anion Gap 11 (6-14) Blood Urea Nitrogen 10 mg/dL (7-20) Creatinine 0.6 mg/dL (0.6-1.0) Estimated GFR (Cockcroft-Gault) 149.9 BUN/Creatinine Ratio 17 (6-20) Glucose Level 103 mg/dL (70-99) Calcium Level 8.6 mg/dL (8.5-10.1) Total Bilirubin 0.2 mg/dL (0.2-1.0) Aspartate Amino Transf (AST/SGOT) 23 U/L (15-37) Alanine Aminotransferase (ALT/SGPT) 23 U/L (14-59) Alkaline Phosphatase 106 U/L (46-116) Total Protein 6.3 g/dL (6.4-8.2) Albumin 2.2 g/dL (3.4-5.0) Albumin/Globulin Ratio 0.5 (1.0-1.7) Microbiology 05/19/19 Throat Culture - Final, Complete 05/19/19 - Final, Complete 05/18/19 Blood Culture - Preliminary, Resulted NO GROWTH AFTER 3 DAYS 05/17/19 Urine Culture - Final, Complete 05/17/19 Urine Culture Result 1 (OSMANI) - Final, Complete Medications Current Medications Ringer's Solution 1,000 ml @ 125 mls/hr Q8H IV Last administered on 05/21/19at 21:38; Start 05/17/19 at 19:37 Dextrose/Lactated Ringer's 1,000 ml @ 125 mls/hr Q8H IV Last administered on 05/18/19at 06:16; Start 05/17/19 at 20:30; Stop 05/18/19 at 21:58; Status DC Ampicillin Sodium 2 gm/Sodium Chloride 100 ml @ 200 mls/hr Q8HRS IV Last administered on 05/18/19at 05:34; Start 05/17/19 at 22:00; Stop 05/18/19 at 13:39; Status DC Acetaminophen (Tylenol) 1,000 mg PRN Q6HRS PRN PO FEVER Last administered on 05/22/19at 06:35; Start 05/17/19 at 20:30 Albuterol Sulfate (Ventolin Neb Soln) 2.5 mg PRN Q4HRS PRN NEB SHORTNESS OF BREATH Last administered on 05/18/19at 16:53; Start 05/17/19 at 20:30 Vancomycin HCl (Vanco Per Pharmacy) 1 each PRN DAILY PRN MC SEE COMMENTS Last administered on 05/21/19at 13:12; Start 05/18/19 at 13:30; Stop 05/21/19 at 13:19; Status DC Cefepime HCl (Maxipime) 2 gm Q8HRS IVP Last administered on 05/21/19at 06:02; Start 05/18/19 at 14:00; Stop 05/21/19 at 13:24; Status DC Azithromycin 250 ml @ 250 mls/hr 1X ONCE IV Last administered on 05/18/19at 16:51; Start 05/18/19 at 13:30; Stop 05/18/19 at 14:29; Status DC Methylprednisolone Sodium Succinate (SOLU-Medrol 125MG VIAL) 60 mg Q6HRS IV Last administered on 05/20/19at 05:53; Start 05/18/19 at 18:00; Stop 05/20/19 at 08:50; Status DC Budesonide (Pulmicort) 0.5 mg RTBID NEB Last administered on 05/21/19at 20:29; Start 05/18/19 at 20:00 Albuterol Sulfate (Ventolin Neb Soln) 2.5 mg PRN Q4HRS PRN NEB SHORTNESS OF BREATH; Start 05/18/19 at 16:00; Stop 05/18/19 at 17:03; Status DC Vancomycin HCl 2 gm/Sodium Chloride 500 ml @ 250 mls/hr 1X ONCE IV Last administered on 05/18/19at 19:42; Start 05/18/19 at 15:00; Stop 05/18/19 at 16:59; Status DC Dextrose/Lactated Ringer's 1,000 ml @ 75 mls/hr [id number] IV Last administered on 05/22/19at 00:45; Start 05/18/19 at 16:45 Albuterol Sulfate (Ventolin Neb Soln) 2.5 mg Q4HRS NEB Last administered on 05/22/19at 04:48; Start 05/18/19 at 20:00 Vancomycin HCl 1.25 gm/Sodium Chloride 250 ml @ 167 mls/hr Q8H IV Last adminis tered on 05/19/19at 12:03; Start 05/19/19 at 04:00; Stop 05/19/19 at 20:17; Status DC Vancomycin HCl (Vancomycin Trough Level) 1 each 1X ONCE MC ; Start 05/19/19 at 19:30; Stop 05/19/19 at 19:31; Status DC Throat Lozenges (Cepacol Sore Throat Lozenge) 1 bj PRN Q2HRS PRN PO SORE THROAT; Start 05/18/19 at 21:45 Azithromycin (Zithromax) 500 mg DAILY PO Last administered on 05/21/19at 09:22; Start 05/19/19 at 09:00; Stop 05/21/19 at 13:05; Status DC Multivit/ Folic Acid/Iron (Multivitamin ) 1 tab DAILY PO Last administered on 05/21/19at 09:21; Start 05/19/19 at 12:00 Docusate Sodium (Colace) 100 mg BID PO Last administered on 05/20/19at 09:03; Start 05/19/19 at 12:00 Vancomycin HCl 1.5 gm/Sodium Chloride 500 ml @ 250 mls/hr Q8H IV Last administered on 05/21/19at 06:02; Start 05/19/19 at 21:00; Stop 05/21/19 at 13:19; Status DC Methylprednisolone Sodium Succinate (SOLU-Medrol 40MG VIAL) 40 mg Q6HRS IV Last administered on 05/21/19at 06:02; Start 05/20/19 at 12:00; Stop 05/21/19 at 09:19; Status DC Fluticasone Propionate (Flonase) 2 spray DAILY NS Last administered on 05/21/19at 09:22; Start 05/20/19 at 10:00 Vancomycin HCl (Vancomycin Trough Level) 1 each 1X ONCE MC Last administered on 05/21/19at 12:30; Start 05/21/19 at 12:30; Stop 05/21/19 at 13:19; Status DC Methylprednisolone Sodium Succinate (SOLU-Medrol 40MG VIAL) 40 mg Q12HR IV Last administered on 05/21/19at 21:37; Start 05/21/19 at 21:00 Amoxicillin/ Clavulanate Potassium (Augmentin 875/ 125mg) 1 tab BID PO Last administered on 05/21/19at 21:37; Start 05/21/19 at 21:00 Active Scripts Active Proair Hfa Inhaler (Albuterol Sulfate) 8.5 Gm Hfa.aer.ad 2 Puff INH PRN Q6HRS PRN 30 Days Proair Respiclick (Albuterol Sulfate) 90 Mcg Aer.pow.ba 1 Puff IH PRN Q6HRS PRN Reported Prenatabs Rx Tablet ( Vit #76/Iron,Carb/Fa) 1 Each Tablet 1 Tab PO DAILY Vitals/I & O Vital Sign - Last 24 Hours 05/21/19 05/21/19 05/21/19 05/21/19 11:00 12:33 15:00 15:50 Temp 97.5 98.8 97.5 98.8 Pulse 60 98 Resp 18 18 B/P (MAP) 190/60 (103) 128/84 (99) Pulse Ox 93 91 94 O2 Delivery Nasal Cannula Room Air Nasal Cannula Room Air O2 Flow Rate 2.0 2.0 05/21/19 05/21/19 05/21/19 05/21/19 19:15 20:00 20:30 23:51 Temp 97.8 98.7 97.8 98.7 Pulse 102 108 Resp 24 19 B/P (MAP) 134/84 (101) 112/68 (83) Pulse Ox 93 94 92 O2 Delivery Room Air Room Air Room Air Room Air 05/22/19 05/22/19 05/22/19 03:05 04:48 07:00 Temp 98.0 97.3 98.0 97.3 Pulse 100 101 Resp 20 18 B/P (MAP) 127/73 (91) 119/84 (96) Pulse Ox 98 98 O2 Delivery Room Air Room Air Room Air Intake and Output 05/21/19 05/21/19 05/22/19 14:59 22:59 06:59 Intake Total 500 ml 900 ml Balance 500 ml 900 ml TAINA BERNAL MD May 22, 2019 08:25
--- NOTE | 2019-05-22 08:36 | PDOC ---
PULMONARY PROGRESS NOTES Subjective PT LESS SOA NO CHEST PAIN Vitals Vital Signs Date Time Temp Pulse Resp B/P (MAP) Pulse Ox O2 Delivery O2 Flow Rate FiO2 05/22/19 07:00 97.3 101 18 119/84 (96) 98 Room Air 97.3 05/21/19 15:00 2.0 ROS: No Nausea, No Chest Pain, No Abdominal Pain, No Increase Cough General: Alert Lungs: Clear Cardiovascular: S1, S2 Abdomen: Soft, Non-tender, Other (preganant) Neuro Exam: Alert Extremities: No Edema Skin: Warm Labs Laboratory Tests Test 05/21/19 12:15 05/22/19 02:30 Vancomycin Level Trough 15.4 mcg/mL (10.0-20.0) Vancomycin Last Dose Date 05-21-19 Vancomycin Last Dose Time 0500 White Blood Count 11.8 x10^3/uL (4.0-11.0) Red Blood Count 3.50 x10^6/uL (3.50-5.40) Hemoglobin 10.3 g/dL (12.0-15.5) Hematocrit 31.5 % (36.0-47.0) Mean Corpuscular Volume 90 fL (79-100) Mean Corpuscular Hemoglobin 30 pg (25-35) Mean Corpuscular Hemoglobin Concent 33 g/dL (31-37) Red Cell Distribution Width 15.0 % (11.5-14.5) Platelet Count 283 x10^3/uL (140-400) Neutrophils (%) (Auto) 70 % (31-73) Lymphocytes (%) (Auto) 19 % (24-48) Monocytes (%) (Auto) 11 % (0-9) Eosinophils (%) (Auto) 0 % (0-3) Basophils (%) (Auto) 0 % (0-3) Neutrophils # (Auto) 8.3 x10^3/uL (1.8-7.7) Lymphocytes # (Auto) 2.2 x10^3/uL (1.0-4.8) Monocytes # (Auto) 1.2 x10^3/uL (0.0-1.1) Eosinophils # (Auto) 0.0 x10^3/uL (0.0-0.7) Basophils # (Auto) 0.0 x10^3/uL (0.0-0.2) Sodium Level 139 mmol/L (136-145) Potassium Level 4.2 mmol/L (3.5-5.1) Chloride Level 106 mmol/L (98-107) Carbon Dioxide Level 22 mmol/L (21-32) Anion Gap 11 (6-14) Blood Urea Nitrogen 10 mg/dL (7-20) Creatinine 0.6 mg/dL (0.6-1.0) Estimated GFR (Cockcroft-Gault) 149.9 BUN/Creatinine Ratio 17 (6-20) Glucose Level 103 mg/dL (70-99) Calcium Level 8.6 mg/dL (8.5-10.1) Total Bilirubin 0.2 mg/dL (0.2-1.0) Aspartate Amino Transf (AST/SGOT) 23 U/L (15-37) Alanine Aminotransferase (ALT/SGPT) 23 U/L (14-59) Alkaline Phosphatase 106 U/L (46-116) Total Protein 6.3 g/dL (6.4-8.2) Albumin 2.2 g/dL (3.4-5.0) Albumin/Globulin Ratio 0.5 (1.0-1.7) Laboratory Tests Test 05/21/19 12:15 05/22/19 02:30 Vancomycin Level Trough 15.4 mcg/mL (10.0-20.0) Vancomycin Last Dose Date 05-21-19 Vancomycin Last Dose Time 0500 White Blood Count 11.8 x10^3/uL (4.0-11.0) Red Blood Count 3.50 x10^6/uL (3.50-5.40) Hemoglobin 10.3 g/dL (12.0-15.5) Hematocrit 31.5 % (36.0-47.0) Mean Corpuscular Volume 90 fL (79-100) Mean Corpuscular Hemoglobin 30 pg (25-35) Mean Corpuscular Hemoglobin Concent 33 g/dL (31-37) Red Cell Distribution Width 15.0 % (11.5-14.5) Platelet Count 283 x10^3/uL (140-400) Neutrophils (%) (Auto) 70 % (31-73) Lymphocytes (%) (Auto) 19 % (24-48) Monocytes (%) (Auto) 11 % (0-9) Eosinophils (%) (Auto) 0 % (0-3) Basophils (%) (Auto) 0 % (0-3) Neutrophils # (Auto) 8.3 x10^3/uL (1.8-7.7) Lymphocytes # (Auto) 2.2 x10^3/uL (1.0-4.8) Monocytes # (Auto) 1.2 x10^3/uL (0.0-1.1) Eosinophils # (Auto) 0.0 x10^3/uL (0.0-0.7) Basophils # (Auto) 0.0 x10^3/uL (0.0-0.2) Sodium Level 139 mmol/L (136-145) Potassium Level 4.2 mmol/L (3.5-5.1) Chloride Level 106 mmol/L (98-107) Carbon Dioxide Level 22 mmol/L (21-32) Anion Gap 11 (6-14) Blood Urea Nitrogen 10 mg/dL (7-20) Creatinine 0.6 mg/dL (0.6-1.0) Estimated GFR (Cockcroft-Gault) 149.9 BUN/Creatinine Ratio 17 (6-20) Glucose Level 103 mg/dL (70-99) Calcium Level 8.6 mg/dL (8.5-10.1) Total Bilirubin 0.2 mg/dL (0.2-1.0) Aspartate Amino Transf (AST/SGOT) 23 U/L (15-37) Alanine Aminotransferase (ALT/SGPT) 23 U/L (14-59) Alkaline Phosphatase 106 U/L (46-116) Total Protein 6.3 g/dL (6.4-8.2) Albumin 2.2 g/dL (3.4-5.0) Albumin/Globulin Ratio 0.5 (1.0-1.7) Medications Active Scripts Medications Dose Route/Sig Max Daily Dose Days Date Category Proair Hfa Inhaler (Albuterol Sulfate) 8.5 Gm Hfa.aer.ad 2 Puff INH PRN Q6HRS PRN 30 01/22/19 Rx Proair Respiclick (Albuterol Sulfate) 90 Mcg Aer.pow.ba 1 Puff IH PRN Q6HRS PRN 02/09/17 Rx Prenatabs Rx Tablet ( Vit #76/Iron,Carb/Fa) 1 Each Tablet 1 Tab PO DAILY 07/27/14 Reported Impression . IMPRESSION: 1. Acute hypoxic respiratory failure secondary to Mycoplasma pneumoniae in a patient who is 35 weeks . 2. The patient with adult-onset asthma, which is usually triggered by respiratory tract infections. Previous did not trigger her asthma. This hospitalization with asthma exacerbation is triggered by her right lower lobe Mycoplasma pneumoniae. 3. Abnormal CT chest with right lower lobe consolidation consistent with pneumonia. Plan . RESP STATUS COMPENSATED HOME SOON NEEDS A NEB MACHINE AT HOME WILL CHECK 6 MW ANTIBX PER ID MILDRED CABRERA MD May 22, 2019 08:36
[2019-05-22] MEDS: DOCUSATE SODIUM 100 MG CAPSULE. PO SCH (09:00)
--- NOTE | 2019-05-22 09:38 | PDOC ---
OB Progress Note Date of Service 05/22/19 Time of Evaluation 0930 Notes PT. feeling better with less SOB. She denies night sweats or chills. Afebrile. Lab Laboratory Tests Test 05/21/19 12:15 05/22/19 02:30 Vancomycin Level Trough 15.4 mcg/mL (10.0-20.0) Vancomycin Last Dose Date 05-21-19 Vancomycin Last Dose Time 0500 White Blood Count 11.8 x10^3/uL (4.0-11.0) Red Blood Count 3.50 x10^6/uL (3.50-5.40) Hemoglobin 10.3 g/dL (12.0-15.5) Hematocrit 31.5 % (36.0-47.0) Mean Corpuscular Volume 90 fL (79-100) Mean Corpuscular Hemoglobin 30 pg (25-35) Mean Corpuscular Hemoglobin Concent 33 g/dL (31-37) Red Cell Distribution Width 15.0 % (11.5-14.5) Platelet Count 283 x10^3/uL (140-400) Neutrophils (%) (Auto) 70 % (31-73) Lymphocytes (%) (Auto) 19 % (24-48) Monocytes (%) (Auto) 11 % (0-9) Eosinophils (%) (Auto) 0 % (0-3) Basophils (%) (Auto) 0 % (0-3) Neutrophils # (Auto) 8.3 x10^3/uL (1.8-7.7) Lymphocytes # (Auto) 2.2 x10^3/uL (1.0-4.8) Monocytes # (Auto) 1.2 x10^3/uL (0.0-1.1) Eosinophils # (Auto) 0.0 x10^3/uL (0.0-0.7) Basophils # (Auto) 0.0 x10^3/uL (0.0-0.2) Sodium Level 139 mmol/L (136-145) Potassium Level 4.2 mmol/L (3.5-5.1) Chloride Level 106 mmol/L (98-107) Carbon Dioxide Level 22 mmol/L (21-32) Anion Gap 11 (6-14) Blood Urea Nitrogen 10 mg/dL (7-20) Creatinine 0.6 mg/dL (0.6-1.0) Estimated GFR (Cockcroft-Gault) 149.9 BUN/Creatinine Ratio 17 (6-20) Glucose Level 103 mg/dL (70-99) Calcium Level 8.6 mg/dL (8.5-10.1) Total Bilirubin 0.2 mg/dL (0.2-1.0) Aspartate Amino Transf (AST/SGOT) 23 U/L (15-37) Alanine Aminotransferase (ALT/SGPT) 23 U/L (14-59) Alkaline Phosphatase 106 U/L (46-116) Total Protein 6.3 g/dL (6.4-8.2) Albumin 2.2 g/dL (3.4-5.0) Albumin/Globulin Ratio 0.5 (1.0-1.7) Laboratory Tests Test 05/21/19 12:15 05/22/19 02:30 Vancomycin Level Trough 15.4 mcg/mL (10.0-20.0) Vancomycin Last Dose Date 05-21-19 Vancomycin Last Dose Time 0500 White Blood Count 11.8 x10^3/uL (4.0-11.0) Red Blood Count 3.50 x10^6/uL (3.50-5.40) Hemoglobin 10.3 g/dL (12.0-15.5) Hematocrit 31.5 % (36.0-47.0) Mean Corpuscular Volume 90 fL (79-100) Mean Corpuscular Hemoglobin 30 pg (25-35) Mean Corpuscular Hemoglobin Concent 33 g/dL (31-37) Red Cell Distribution Width 15.0 % (11.5-14.5) Platelet Count 283 x10^3/uL (140-400) Neutrophils (%) (Auto) 70 % (31-73) Lymphocytes (%) (Auto) 19 % (24-48) Monocytes (%) (Auto) 11 % (0-9) Eosinophils (%) (Auto) 0 % (0-3) Basophils (%) (Auto) 0 % (0-3) Neutrophils # (Auto) 8.3 x10^3/uL (1.8-7.7) Lymphocytes # (Auto) 2.2 x10^3/uL (1.0-4.8) Monocytes # (Auto) 1.2 x10^3/uL (0.0-1.1) Eosinophils # (Auto) 0.0 x10^3/uL (0.0-0.7) Basophils # (Auto) 0.0 x10^3/uL (0.0-0.2) Sodium Level 139 mmol/L (136-145) Potassium Level 4.2 mmol/L (3.5-5.1) Chloride Level 106 mmol/L (98-107) Carbon Dioxide Level 22 mmol/L (21-32) Anion Gap 11 (6-14) Blood Urea Nitrogen 10 mg/dL (7-20) Creatinine 0.6 mg/dL (0.6-1.0) Estimated GFR (Cockcroft-Gault) 149.9 BUN/Creatinine Ratio 17 (6-20) Glucose Level 103 mg/dL (70-99) Calcium Level 8.6 mg/dL (8.5-10.1) Total Bilirubin 0.2 mg/dL (0.2-1.0) Aspartate Amino Transf (AST/SGOT) 23 U/L (15-37) Alanine Aminotransferase (ALT/SGPT) 23 U/L (14-59) Alkaline Phosphatase 106 U/L (46-116) Total Protein 6.3 g/dL (6.4-8.2) Albumin 2.2 g/dL (3.4-5.0) Albumin/Globulin Ratio 0.5 (1.0-1.7) Medications Current Medications Ringer's Solution 1,000 ml @ 125 mls/hr Q8H IV Last administered on 05/21/19at 21:38; Start 05/17/19 at 19:37 Dextrose/Lactated Ringer's 1,000 ml @ 125 mls/hr Q8H IV Last administered on 05/18/19at 06:16; Start 05/17/19 at 20:30; Stop 05/18/19 at 21:58; Status DC Ampicillin Sodium 2 gm/Sodium Chloride 100 ml @ 200 mls/hr Q8HRS IV Last administered on 05/18/19at 05:34; Start 05/17/19 at 22:00; Stop 05/18/19 at 13:39; Status DC Acetaminophen (Tylenol) 1,000 mg PRN Q6HRS PRN PO FEVER Last administered on at 06:35; Start 05/17/19 at 20:30 Albuterol Sulfate (Ventolin Neb Soln) 2.5 mg PRN Q4HRS PRN NEB SHORTNESS OF BREATH Last administered on 05/18/19at 16:53; Start 05/17/19 at 20:30 Vancomycin HCl (Vanco Per Pharmacy) 1 each PRN DAILY PRN MC SEE COMMENTS Last administered on 05/21/19at 13:12; Start 05/18/19 at 13:30; Stop 05/21/19 at 13:19; Status DC Cefepime HCl (Maxipime) 2 gm Q8HRS IVP Last administered on 05/21/19at 06:02; Start 05/18/19 at 14:00; Stop 05/21/19 at 13:24; Status DC Azithromycin 250 ml @ 250 mls/hr 1X ONCE IV Last administered on 05/18/19at 16:51; Start 05/18/19 at 13:30; Stop 05/18/19 at 14:29; Status DC Methylprednisolone Sodium Succinate (SOLU-Medrol 125MG VIAL) 60 mg Q6HRS IV Last administered on 05/20/19at 05:53; Start 05/18/19 at 18:00; Stop 05/20/19 at 08:50; Status DC Budesonide (Pulmicort) 0.5 mg RTBID NEB Last administered on 05/21/19at 20:29; Start 05/18/19 at 20:00 Albuterol Sulfate (Ventolin Neb Soln) 2.5 mg PRN Q4HRS PRN NEB SHORTNESS OF BREATH; Start 05/18/19 at 16:00; Stop 05/18/19 at 17:03; Status DC Vancomycin HCl 2 gm/Sodium Chloride 500 ml @ 250 mls/hr 1X ONCE IV Last administered on 05/18/19at 19:42; Start 05/18/19 at 15:00; Stop 05/18/19 at 16:59; Status DC Dextrose/Lactated Ringer's 1,000 ml @ 75 mls/hr [id number] IV Last administered on 05/22/19at 00:45; Start 05/18/19 at 16:45 Albuterol Sulfate (Ventolin Neb Soln) 2.5 mg Q4HRS NEB Last administered on 05/22/19at 04:48; Start 05/18/19 at 20:00 Vancomycin HCl 1.25 gm/Sodium Chloride 250 ml @ 167 mls/hr Q8H IV Last administered on 05/19/19at 12:03; Start 05/19/19 at 04:00; Stop 05/19/19 at 20:17; Status DC Vancomycin HCl (Vancomycin Trough Level) 1 each 1X ONCE MC ; Start 05/19/19 at 19:30; Stop 05/19/19 at 19:31; Status DC Throat Lozenges (Cepacol Sore Throat Lozenge) 1 bj PRN Q2HRS PRN PO SORE THROAT; Start 05/18/19 at 21:45 Azithromycin (Zithromax) 500 mg DAILY PO Last administered on 05/21/19at 09:22; Start 05/19/19 at 09:00; Stop 05/21/19 at 13:05; Status DC Multivit/ Folic Acid/Iron (Multivitamin ) 1 tab DAILY PO Last administered on 05/21/19at 09:21; Start 05/19/19 at 12:00 Docusate Sodium (Colace) 100 mg BID PO Last administered on 05/20/19at 09:03; Start 05/19/19 at 12:00 Vancomycin HCl 1.5 gm/Sodium Chloride 500 ml @ 250 mls/hr Q8H IV Last administered on 05/21/19at 06:02; Start 05/19/19 at 21:00; Stop 05/21/19 at 13:19; Status DC Methylprednisolone Sodium Succinate (SOLU-Medrol 40MG VIAL) 40 mg Q6HRS IV Last administered on 05/21/19at 06:02; Start 05/20/19 at 12:00; Stop 05/21/19 at 09:19; Status DC Fluticasone Propionate (Flonase) 2 spray DAILY NS Last administered on 05/21/19at 09:22; Start 05/20/19 at 10:00 Vancomycin HCl (Vancomycin Trough Level) 1 each 1X ONCE MC Last administered on 05/21/19at 12:30; Start 05/21/19 at 12:30; Stop 05/21/19 at 13:19; Status DC Methylprednisolone Sodium Succinate (SOLU-Medrol 40MG VIAL) 40 mg Q12HR IV Last administered on 05/21/19at 21:37; Start 05/21/19 at 21:00 Amoxicillin/ Clavulanate Potassium (Augmentin 875/ 125mg) 1 tab BID PO Last administered on 05/21/19at 21:37; Start 05/21/19 at 21:00 Active Scripts Active Proair Hfa Inhaler (Albuterol Sulfate) 8.5 Gm Hfa.aer.ad 2 Puff INH PRN Q6HRS PRN 30 Days Proair Respiclick (Albuterol Sulfate) 90 Mcg Aer.pow.ba 1 Puff IH PRN Q6HRS PRN Reported Prenatabs Rx Tablet ( Vit #76/Iron,Carb/Fa) 1 Each Tablet 1 Tab PO DAILY Exam Lungs: clear with mild wheezing Abd: soft, non tender NST pending Assessment A: 35 wks IUP Mycoplasma pneumonia P: Continue current care. NST daily. Okay to discharge on oral abx and steriod taper when appropriate. F/u in 3 days. HERNANDEZ GTZ Jr, MD May 22, 2019 09:37
[2019-05-22 10:33] LABS: % LYMPHS 14 % (24-48); % MONOS 6 % (0-10); % SEGS 80 % (35-66); ANISOCYTOSIS SLIGHT; PLT ESTIMATE ADEQUATE (ADEQUATE)
[2019-05-22] MEDS: FLUTICASONE 50MCG/NASAL SPRAY 16GM BOTTLE. NS SCH (11:10)
[2019-05-22] MEDS: PRENATAL MULTIVITAMIN TABLET. PO SCH (11:11)
[2019-05-22] MEDS: methylPREDNISolone SOD SUCC PF 40 MG/ML VIAL. IV SCH (11:11)
[2019-05-22] MEDS: AMOXICILLIN/K CLAV 875/125MG TABLET. PO SCH (11:11)
[2019-05-22 11:43] VITALS: BP 121/78
--- NOTE | 2019-05-22 11:59 | PDOC ---
Infectious Disease Note Subjective Subjective Feeling better not on o2, walking without any difficulty ROS ROS no n/v/d/ Vital Sign Vital Signs Vital Signs Date Time Temp Pulse Resp B/P (MAP) Pulse Ox O2 Delivery O2 Flow Rate FiO2 05/22/19 11:43 97.9 103 19 121/78 (92) 94 Room Air 97.9 05/21/19 15:00 2.0 Physical Exam PHYSICAL EXAM GENERAL: Lying down, alert, in NAD HEENT: oc/op clear LUNGS: Diminished aeration CV: S1 S2 ABDOMEN: EXT: No gross edema SKIN: Warm to touch CARDIOVASCULAR SURGICAL TECH: Alert, appropriate IV out Labs Lab Laboratory Tests Test 05/21/19 12:15 05/22/19 02:30 Vancomycin Level Trough 15.4 mcg/mL (10.0-20.0) Vancomycin Last Dose Date 05-21-19 Vancomycin Last Dose Time 0500 White Blood Count 11.8 x10^3/uL (4.0-11.0) Red Blood Count 3.50 x10^6/uL (3.50-5.40) Hemoglobin 10.3 g/dL (12.0-15.5) Hematocrit 31.5 % (36.0-47.0) Mean Corpuscular Volume 90 fL (79-100) Mean Corpuscular Hemoglobin 30 pg (25-35) Mean Corpuscular Hemoglobin Concent 33 g/dL (31-37) Red Cell Distribution Width 15.0 % (11.5-14.5) Platelet Count 283 x10^3/uL (140-400) Neutrophils (%) (Auto) 70 % (31-73) Lymphocytes (%) (Auto) 19 % (24-48) Monocytes (%) (Auto) 11 % (0-9) Eosinophils (%) (Auto) 0 % (0-3) Basophils (%) (Auto) 0 % (0-3) Neutrophils # (Auto) 8.3 x10^3/uL (1.8-7.7) Lymphocytes # (Auto) 2.2 x10^3/uL (1.0-4.8) Monocytes # (Auto) 1.2 x10^3/uL (0.0-1.1) Eosinophils # (Auto) 0.0 x10^3/uL (0.0-0.7) Basophils # (Auto) 0.0 x10^3/uL (0.0-0.2) Segmented Neutrophils % 80 % (35-66) Lymphocytes % 14 % (24-48) Monocytes % 6 % (0-10) Platelet Estimate Adequate (ADEQUATE) Anisocytosis Slight Sodium Level 139 mmol/L (136-145) Potassium Level 4.2 mmol/L (3.5-5.1) Chloride Level 106 mmol/L (98-107) Carbon Dioxide Level 22 mmol/L (21-32) Anion Gap 11 (6-14) Blood Urea Nitrogen 10 mg/dL (7-20) Creatinine 0.6 mg/dL (0.6-1.0) Estimated GFR (Cockcroft-Gault) 149.9 BUN/Creatinine Ratio 17 (6-20) Glucose Level 103 mg/dL (70-99) Calcium Level 8.6 mg/dL (8.5-10.1) Total Bilirubin 0.2 mg/dL (0.2-1.0) Aspartate Amino Transf (AST/SGOT) 23 U/L (15-37) Alanine Aminotransferase (ALT/SGPT) 23 U/L (14-59) Alkaline Phosphatase 106 U/L (46-116) Total Protein 6.3 g/dL (6.4-8.2) Albumin 2.2 g/dL (3.4-5.0) Albumin/Globulin Ratio 0.5 (1.0-1.7) Micro Microbiology 05/19/19 - Final, Resulted 05/19/19 - Final, Resulted 05/19/19 - Final, Resulted 05/19/19 - Preliminary, Resulted 05/19/19 - Preliminary, Resulted 05/19/19 - Preliminary, Resulted 05/19/19 Gram Stain Evaluation - Final, Resulted 05/19/19 Sputum Culture - Final, Resulted 05/19/19 Sputum Result 1 - Final, Resulted 05/18/19 Blood Culture - Preliminary, Resulted NO GROWTH AFTER 2 DAYS 05/17/19 Urine Culture - Final, Complete 05/17/19 Urine Culture Result 1 (OSMANI) - Final, Complete Objective Assessment Fever 102 on admit - normal Procalcitonin - better Mycoplasma + 05/18. had 3 doses of azithro Right pneumonia -Failed Doxy/Bactrim. Previously on Azithromycin/Rocephin/Soulmedrol times one. - LE U/s dopplers neg 35 weeks Sore throat - Group A strep screen neg. TSH nml Asthma - on Steroids ? residual Thymus on ct Plan Plan of Care d/c ok on po augmentin for 5 more days MELINA SALAS MD May 22, 2019 11:59
[2019-05-22] MEDS ORDERED: IV RINGERS,LACTATED 1000ML 1,000 ML IV SCH (12:00)
--- NOTE | 2019-05-22 14:03 | NUR ---
SS following for discharge planning. No discharge needs noted at this time. SS will continue to follow for discharge planning.
[2019-05-22 14:31] VITALS: BP 140/77
--- NOTE | 2019-05-22 14:42 | PDOC3 ---
Discharge Summary Date of Admission: May 18, 2019 Date of Discharge: May 22, 2019 Follow-Up: 3-5 days Admitting Diagnosis comment: DISCHARGE DX acute hypoxic resp failure Shortness of breath - likely asthma, , and pneumonia related. Will treat. ID and Pulm following as well Hypoxia WITH ACUTE RESPIRATORY FAILURE - likely from pneumonia, will wean as t olerated. IS, ambulate Right middle lobe infiltrate - failed outpatient doxycycline, bactrim, azithromycin, and rocephin. Should be on azithromycin for atypical coverage and agree with cefepime after d/w ID Sepsis - with fever 102F, tachycardia, blood cultures x2, sputum culture, legionella and mycoplasma. Procalcitonin 35 weeks - manager technology following Sore throat - cepacol Asthma - nebulizers, pulmicort BID, wean O2 as tolerated. Consulted pulmonology FEN - General diet PPX - SCDs FULL CODE Dispo - inpatient for pneumonia failing outpatient therapy. cover MRSA and potential Pseudomonas, mycoplasma FLONASE NS DAILY NEBULIZER AT HOME AUGMENTIN PO BID X 5 DAYS ON CTA Consolidation within the right middle lobe extending along the bronchovascular structures to the pleura at the posterior/medial aspect. This is concerning for pneumonia given the configuration and would be somewhat atypical for a pulmonary infarct but the latter is not entirely excluded as the pulmonary arteries to this region are not well evaluated. mycoplasma igm pos 36 min pt exam D/C PLANNING TIME, chart review, > 50% of time spent with exam, chart review, pt care coordination Vitals Vitals Vital Signs Date Time Temp Pulse Resp B/P (MAP) Pulse Ox O2 Delivery O2 Flow Rate FiO2 05/22/19 07:00 97.3 101 18 119/84 (96) 98 Room Air 97.3 05/21/19 15:00 2.0 Physical Exam Physical Exam GENERAL: Lying down, alert, in NAD HEENT: oc/op clear LUNGS: Diminished aeration CV: S1 S2 ABDOMEN: EXT: No gross edema SKIN: Warm to touch RN OTOLARYNGOLOGY: Alert, appropriate IV out General: Alert, Oriented X3, Cooperative, No acute distress, mild distress Lungs: Clear Abdomen: Normal bowel sounds, Soft, No tenderness, No hepatosplenomegaly, No masses Extremities: No clubbing, No cyanosis, No edema, Normal pulses, No tenderness/swelling Skin: No rashes, No breakdown, No significant lesion Labs Brief Hospital Course Ms. Mccrary is a 23 old [sex] who presented with [ASTHMA, PNEUMONIA ] CONDITION AT DISCHARGE: Improved Discharge Medications Current Medications Ringer's Solution 1,000 ml @ 125 mls/hr Q8H IV Last administered on 05/22/19at 11:12; Start 05/17/19 at 19:37 Dextrose/Lactated Ringer's 1,000 ml @ 125 mls/hr Q8H IV Last administered on 05/18/19at 06:16; Start 05/17/19 at 20:30; Stop 05/18/19 at 21:58; Status DC Ampicillin Sodium 2 gm/Sodium Chloride 100 ml @ 200 mls/hr Q8HRS IV Last administered on 05/18/19at 05:34; Start 05/17/19 at 22:00; Stop 05/18/19 at 13:39; Status DC Acetaminophen (Tylenol) 1,000 mg PRN Q6HRS PRN PO FEVER Last administered on 05/22/19at 06:35; Start 05/17/19 at 20:30 Albuterol Sulfate (Ventolin Neb Soln) 2.5 mg PRN Q4HRS PRN NEB SHORTNESS OF BREATH Last administered on 05/18/19at 16:53; Start 05/17/19 at 20:30 Vancomycin HCl (Vanco Per Pharmacy) 1 each PRN DAILY PRN MC SEE COMMENTS Last administered on 05/21/19at 13:12; Start 05/18/19 at 13:30; Stop 05/21/19 at 13:19; Status DC Cefepime HCl (Maxipime) 2 gm Q8HRS IVP Last administered on 05/21/19at 06:02; Start 05/18/19 at 14:00; Stop 05/21/19 at 13:24; Status DC Azithromycin 250 ml @ 250 mls/hr 1X ONCE IV Last administered on 05/18/19at 16:51; Start 05/18/19 at 13:30; Stop 05/18/19 at 14:29; Status DC Methylprednisolone Sodium Succinate (SOLU-Medrol 125MG VIAL) 60 mg Q6HRS IV Last administered on 05/20/19at 05:53; Start 05/18/19 at 18:00; Stop 05/20/19 at 08:50; Status DC Budesonide (Pulmicort) 0.5 mg RTBID NEB Last administered on 05/22/19at 08:00; Start 05/18/19 at 20:00 Albuterol Sulfate (Ventolin Neb Soln) 2.5 mg PRN Q4HRS PRN NEB SHORTNESS OF BREATH; Start 05/18/19 at 16:00; Stop 05/18/19 at 17:03; Status DC Vancomycin HCl 2 gm/Sodium Chloride 500 ml @ 250 mls/hr 1X ONCE IV Last administered on 05/18/19at 19:42; Start 05/18/19 at 15:00; Stop 05/18/19 at 16:59; Status DC Dextrose/Lactated Ringer's 1,000 ml @ 75 mls/hr [id number] IV Last administered on 05/22/19at 00:45; Start 05/18/19 at 16:45; Stop 05/22/19 at 11:09; Status DC Albuterol Sulfate (Ventolin Neb Soln) 2.5 mg Q4HRS NEB Last administered on 05/22/19at 11:22; Start 05/18/19 at 20:00 Vancomycin HCl 1.25 gm/Sodium Chloride 250 ml @ 167 mls/hr Q8H IV Last administered on 05/19/19at 12:03; Start 05/19/19 at 04:00; Stop 05/19/19 at 20:17; Status DC Vancomycin HCl (Vancomycin Trough Level) 1 each 1X ONCE MC ; Start 05/19/19 at 19:30; Stop 05/19/19 at 19:31; Status DC Throat Lozenges (Cepacol Sore Throat Lozenge) 1 bj PRN Q2HRS PRN PO SORE THROAT; Start 05/18/19 at 21:45 Azithromycin (Zithromax) 500 mg DAILY PO Last administered on 05/21/19at 09:22; Start 05/19/19 at 09:00; Stop 05/21/19 at 13:05; Status DC Multivit/ Folic Acid/Iron (Multivitamin ) 1 tab DAILY PO Last administered on 05/22/19at 11:11; Start 05/19/19 at 12:00 Docusate Sodium (Colace) 100 mg BID PO Last administered on 05/20/19at 09:03; Start 05/19/19 at 12:00 Vancomycin HCl 1.5 gm/Sodium Chloride 500 ml @ 250 mls/hr Q8H IV Last administered on 05/21/19 06:02; Start 05/19/19 at 21:00; Stop 05/21/19 at 13:19; Status DC Methylprednisolone Sodium Succinate (SOLU-Medrol 40MG VIAL) 40 mg Q6HRS IV Last administered on 05/21/19at 06:02; Start 05/20/19 at 12:00; Stop 05/21/19 at 09:19; Status DC Fluticasone Propionate (Flonase) 2 spray DAILY NS Last administered on 05/22/19at 11:10; Start 05/20/19 at 10:00 Vancomycin HCl (Vancomycin Trough Level) 1 each 1X ONCE MC Last administered on 05/21/19at 12:30; Start 05/21/19 at 12:30; Stop 05/21/19 at 13:19; Status DC Methylprednisolone Sodium Succinate (SOLU-Medrol 40MG VIAL) 40 mg Q12HR IV Last administered on 05/22/19at 11:11; Start 05/21/19 at 21:00 Amoxicillin/ Clavulanate Potassium (Augmentin 875/ 125mg) 1 tab BID PO Last administered on 05/22/19at 11:11; Start 05/21/19 at 21:00 Ringer's Solution 1,000 ml @ 75 mls/hr [id number] IV Last administered on 05/22/19at 12:00; Start 05/22/19 at 12:00 Active Scripts Active Proair Hfa Inhaler (Albuterol Sulfate) 8.5 Gm Hfa.aer.ad 2 Puff INH PRN Q6HRS PRN 30 Days Proair Respiclick (Albuterol Sulfate) 90 Mcg Aer.pow.ba 1 Puff IH PRN Q6HRS PRN Reported Prenatabs Rx Tablet ( Vit #76/Iron,Carb/Fa) 1 Each Tablet 1 Tab PO DAILY Vital Signs Vital Signs Date Time Temp Pulse Resp B/P (MAP) Pulse Ox O2 Delivery O2 Flow Rate FiO2 05/22/19 14:31 98.3 103 19 140/77 (98) 96 Room Air 98.3 05/21/19 15:00 2.0 Labs Laboratory Tests Test 05/21/19 12:15 05/22/19 02:30 Vancomycin Level Trough 15.4 mcg/mL (10.0-20.0) Vancomycin Last Dose Date 05-21-19 Vancomycin Last Dose Time 0500 White Blood Count 11.8 x10^3/uL (4.0-11.0) Red Blood Count 3.50 x10^6/uL (3.50-5.40) Hemoglobin 10.3 g/dL (12.0-15.5) Hematocrit 31.5 % (36.0-47.0) Mean Corpuscular Volume 90 fL (79-100) Mean Corpuscular Hemoglobin 30 pg (25-35) Mean Corpuscular Hemoglobin Concent 33 g/dL (31-37) Red Cell Distribution Width 15.0 % (11.5-14.5) Platelet Count 283 x10^3/uL (140-400) Neutrophils (%) (Auto) 70 % (31-73) Lymphocytes (%) (Auto) 19 % (24-48) Monocytes (%) (Auto) 11 % (0-9) Eosinophils (%) (Auto) 0 % (0-3) Basophils (%) (Auto) 0 % (0-3) Neutrophils # (Auto) 8.3 x10^3/uL (1.8-7.7) Lymphocytes # (Auto) 2.2 x10^3/uL (1.0-4.8) Monocytes # (Auto) 1.2 x10^3/uL (0.0-1.1) Eosinophils # (Auto) 0.0 x10^3/uL (0.0-0.7) Basophils # (Auto) 0.0 x10^3/uL (0.0-0.2) Segmented Neutrophils % 80 % (35-66) Lymphocytes % 14 % (24-48) Monocytes % 6 % (0-10) Platelet Estimate Adequate (ADEQUATE) Anisocytosis Slight Sodium Level 139 mmol/L (136-145) Potassium Level 4.2 mmol/L (3.5-5.1) Chloride Level 106 mmol/L (98-107) Carbon Dioxide Level 22 mmol/L (21-32) Anion Gap 11 (6-14) Blood Urea Nitrogen 10 mg/dL (7-20) Creatinine 0.6 mg/dL (0.6-1.0) Estimated GFR (Cockcroft-Gault) 149.9 BUN/Creatinine Ratio 17 (6-20) Glucose Level 103 mg/dL (70-99) Calcium Level 8.6 mg/dL (8.5-10.1) Total Bilirubin 0.2 mg/dL (0.2-1.0) Aspartate Amino Transf (AST/SGOT) 23 U/L (15-37) Alanine Aminotransferase (ALT/SGPT) 23 U/L (14-59) Alkaline Phosphatase 106 U/L (46-116) Total Protein 6.3 g/dL (6.4-8.2) Albumin 2.2 g/dL (3.4-5.0) Albumin/Globulin Ratio 0.5 (1.0-1.7) Laboratory Tests Test 05/22/19 02:30 White Blood Count 11.8 x10^3/uL (4.0-11.0) Red Blood Count 3.50 x10^6/uL (3.50-5.40) Hemoglobin 10.3 g/dL (12.0-15.5) Hematocrit 31.5 % (36.0-47.0) Mean Corpuscular Volume 90 fL (79-100) Mean Corpuscular Hemoglobin 30 pg (25-35) Mean Corpuscular Hemoglobin Concent 33 g/dL (31-37) Red Cell Distribution Width 15.0 % (11.5-14.5) Platelet Count 283 x10^3/uL (140-400) Neutrophils (%) (Auto) 70 % (31-73) Lymphocytes (%) (Auto) 19 % (24-48) Monocytes (%) (Auto) 11 % (0-9) Eosinophils (%) (Auto) 0 % (0-3) Basophils (%) (Auto) 0 % (0-3) Neutrophils # (Auto) 8.3 x10^3/uL (1.8-7.7) Lymphocytes # (Auto) 2.2 x10^3/uL (1.0-4.8) Monocytes # (Auto) 1.2 x10^3/uL (0.0-1.1) Eosinophils # (Auto) 0.0 x10^3/uL (0.0-0.7) Basophils # (Auto) 0.0 x10^3/uL (0.0-0.2) Segmented Neutrophils % 80 % (35-66) Lymphocytes % 14 % (24-48) Monocytes % 6 % (0-10) Platelet Estimate Adequate (ADEQUATE) Anisocytosis Slight Sodium Level 139 mmol/L (136-145) Potassium Level 4.2 mmol/L (3.5-5.1) Chloride Level 106 mmol/L (98-107) Carbon Dioxide Level 22 mmol/L (21-32) Anion Gap 11 (6-14) Blood Urea Nitrogen 10 mg/dL (7-20) Creatinine 0.6 mg/dL (0.6-1.0) Estimated GFR (Cockcroft-Gault) 149.9 BUN/Creatinine Ratio 17 (6-20) Glucose Level 103 mg/dL (70-99) Calcium Level 8.6 mg/dL (8.5-10.1) Total Bilirubin 0.2 mg/dL (0.2-1.0) Aspartate Amino Transf (AST/SGOT) 23 U/L (15-37) Alanine Aminotransferase (ALT/SGPT) 23 U/L (14-59) Alkaline Phosphatase 106 U/L (46-116) Total Protein 6.3 g/dL (6.4-8.2) Albumin 2.2 g/dL (3.4-5.0) Albumin/Globulin Ratio 0.5 (1.0-1.7) Allergies Allergies Coded Allergies Type Severity Reaction Last Updated Verified No Known Drug Allergies 04/01/19 No Disposition/Orders: D/C to Home TAINA BERNAL MD May 22, 2019 14:42
[2019-05-22] MEDS ORDERED: PRED20TA PO (14:46)
[2019-05-22] MEDS ORDERED: AMOX1TAB11 PO (14:46)
[2019-05-22] MEDS ORDERED: FLUT16SP NS (14:46)
[2019-05-22] MEDS ORDERED: ALBU2.5V8 NEB (14:46)
[2019-05-22] MEDS ORDERED: DOCU-153 PO (14:46)
[2019-05-22] MEDS ORDERED: BUDE0.5A NEB (14:46)
--- NOTE | 2019-05-22 14:47 | DISCH ---
DISCHARGE INSTRUCTIONS Condition on Discharge Condition on Discharge: Stable Activity After Discharge Activity Instructions for Disc: Activity as tolerated Lifting Instructions after Dis: No heavy lifting Exercise Instruction after Dis: Progress as tolerated Driving Instructions after Dis: Do not drive today Weight Bearing Status after Di: No restrictions Diet after Discharge Diet after Discharge: Regular Diet Texture: Regular Liquid Texture: Thin Liquid Swallowing Supervision: None needed Checks after Discharge Checks after discharge: Check blood press - daily Contacting the DR. after DC Call your doctor for: If your condition worsens Treatment/Equipment after DC Adaptive Equipment Issued: None Discharge Respiratory Equipmen: Nebulizer TAINA BERNAL MD May 22, 2019 14:47
--- NOTE | 2019-05-22 16:45 | NUR ---
Pt discharged to home. Discharge instructions discussed with pt. She verbalized understanding.
--- NOTE | 2019-05-23 15:13 | CONS ---
DATE OF CONSULTATION: 05/18/2019 LOCATION: The patient is in room #385. REQUESTING PHYSICIAN: Javi Ibrahim MD REASON FOR CONSULTATION: Pneumonia, fevers, cough, headaches at 35.1 weeks' . HISTORY OF PRESENT ILLNESS: The patient is a pleasant 23-year-old who is now 35.1 weeks' . She states on Wednesday she had sudden onset of a cough, sinus congestion and sore throat. She presented to [facility] where she was admitted, she was given a dose of Rocephin, Solu-Medrol and azithromycin, subsequently was discharged home on the . Influenza screen was negative. She was sent home with doxycycline and Bactrim; however, she returned feeling worse with a temperature of 102 and has been admitted and started on ampicillin 2 grams every 8 hours. Because of her return in her feeling ill, I was consulted. Currently, the patient is lying in bed. She feels a little bit cold. She is a little short of air and awaiting a respiratory treatment with minimal sinus congestion. She does have a sore throat and is now beginning to produce a little bit of sputum. She has had some abdominal discomfort from coughing. No nausea or vomiting. No diarrhea or constipation. No dysuria, frequency or urgency. Denies any rashes. PAST MEDICAL HISTORY: Positive for asthma and anxiety. This is her second and that she has previous baby girl and this one is a girl as well. PAST SURGICAL HISTORY: Positive for wisdom teeth extraction. MEDICATIONS: At home include albuterol, doxycycline and Bactrim. Currently here, she was on ampicillin and albuterol nebulizers. ALLERGIES: No known drug allergies. SOCIAL HISTORY: She lives alone. No pets. Denies any tobacco, no alcohol. No history of substance abuse. 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 Denies any known ill contacts. FAMILY HISTORY: Positive for hypertension. Negative for diabetes, thyroid, hypertension or coronary artery disease. PHYSICAL EXAMINATION: VITAL SIGNS: T-max was 102, most recently 98.4, respirations 20, blood pressure was 143/88 and heart rate was 130s. CONSTITUTIONAL: She is lying in bed. She is cooperative. She is in no acute distress. She does look a little tired. HEENT: Pupils are equal and reactive. She has normal conjunctivae. Oral cavity, pharynx is clear. No signs of thrush. NECK: Supple. Good range of motion. LUNGS: Had some mild wheeze on the left. HEART: S1, S2, mild tachy. ABDOMEN: Distended with decreased bowel sounds. She is . EXTREMITIES: Without clubbing, cyanosis or trace edema. She has no gross tenderness or erythema bilaterally. SKIN: Warm to touch. NEUROLOGIC: She is nonfocal. PSYCHIATRIC: Affect is pleasant. LABORATORY DATA: Laboratory evaluation from the 10th; white count 8.1, hemoglobin 10.9, platelets of 272 and neutrophils are 85. Creatinine of 0.5, glucose of 109, alkaline phosphatase 125, AST 18 and ALT 17. Glucose was 109. Influenza screen was negative on the . Urinalysis; few squamous, no bacteria, 11-[address] chest with contrast; no apparent obvious pulmonary embolism, consolidation of right middle lobe extending along the bronchovascular structures of the pleural concerning for pneumonia, several prominent lymph nodes and soft tissue fullness in the anterior mediastinum, questionable residual thymic tissue. IMPRESSION: 1. Fever of 102. 2. Right pneumonia, failed doxycycline, Bactrim, previously dose of azithromycin, Rocephin and Solu-Medrol. 3. A 35 weeks' . 4. Sore throat. 5. Asthma. 6. Questionable residual thymus on CT. RECOMMENDATIONS: We will stop ampicillin. She has failed Rocephin, azithromycin, doxycycline and Bactrim. At this point, we will have to cover for potential MRSA. Daptomycin does adequately get into the lungs. Zyvox would be contraindicated in and would need to be concerned about potential pseudomonas, given her failing the antibiotics of ceftaroline, does not have another option; therefore, we will dose vancomycin. We will also add cefepime as well as azithromycin. We will obtain a Pulmonary consultation. Also, obtain blood cultures x 2. A CMP, CBC with a diff as well as a procalcitonin. We will check sputum culture, mycoplasma, IgM, legionella, strep antigens, Group A strep screen as well as a TSH. Also, obtain lower extremity Dopplers to rule out potential clot. Obtain labs in the morning. Again, I have discussed with [facility], cultures that are negative. Also, I have discussed with Dr. Hensley, discussed with Pharmacy. Thank you for allowing me to participate in the patient's care. If you have any questions, please do not hesitate to contact me. KIKO SANCHEZ MD DR: VIOLA/kya JOB#: [id number] / [id number]
== END 2019-05-22 16:45 | disposition home or self-care (01) | DRG 831 ==
LOC: 3 SO LND 19:31 → 6 SOUTH 05-18 13:28 → OBSVTOIN 05-18 15:47
PROVIDERS: ADMIT Internal Medicine; ATTEND Obstetrics & Gynecology
DX: O98.813 Other maternal infectious and parasitic diseases complicating pregnancy, third trimester (principal); A41.9 Sepsis, unspecified organism; J96.01 Acute respiratory failure with hypoxia; J18.9 Pneumonia, unspecified organism; Z3A.35 35 weeks gestation of pregnancy
CPT/HCPCS: 36415; 59025; 80048; 80053; 80202; 80307; 81001; 84145; 84443; 85007; 85025; 86738; 87040; 87070; 87086; 87205; 87449; 87880; 93970; 94618; 94640; 94760; G0378; G0379; J0290; J0456; J0692; J2920; J2930; J3370; J7040; J7050; J7120; J7613; J7626; Q0144; J7030

== ENCOUNTER 2019-08-20 12:10 | Emergency (ER) | payer OTHER ==
[~2019-08-20] VITALS: Ht 165.1 cm; Wt 118.0 kg
[~2019-08-20 12:10] MED LIST changes: +ALBU2.5V8 NEB; +AMOX1TAB11 PO; +BUDE0.5A NEB; +DOCU-153 PO; +FERR325T14 PO; +FLUT16SP NS; +OXYC1TAB15 PO; +PRED20TA PO
[2019-08-20 12:24] VITALS: BP 135/83
--- NOTE | 2019-08-20 12:47 | PHYS DOC ---
Past Medical History Past Medical History: Asthma Past Surgical History: , Tonsillectomy Additional Past Surgical Histo: wisdom teeth Smoking Status: Never Smoker Alcohol Use: None Drug Use: None Adult General Chief Complaint Chief Complaint: SORE THROAT [facility] HPI Patient is a 23 year old female with hx of Asthma who presents to the ED today complaining of sore throat, fever, and a cough that began yesterday. Patient is in college at [employer] and is concerned she could have larson. She has not been in direct contact with anyone she knows that has coronavirus and has not traveled anywhere outside the [facility]. Review of Systems Review of Systems Constitutional: Reports fever Eyes: Denies change in visual acuity, redness, or eye pain [] HENT:Reports sore throat. Denies nasal congestion Respiratory: Reports cough denies shortness of breath [] Cardiovascular: No additional information not addressed in HPI [] GI: Denies abdominal pain, nausea, vomiting, bloody stools or diarrhea [] : Denies dysuria or hematuria [] Musculoskeletal: Denies back pain or joint pain [] Integument: Denies rash or skin lesions [] Neurologic: Denies headache, focal weakness or sensory changes [] All other systems were reviewed and found to be within normal limits, except as documented in this note. Allergies Allergies Allergies Coded Allergies Type Severity Reaction Last Updated Verified No Known Drug Allergies 04/01/19 No Physical Exam Physical Exam Constitutional: Well developed, well nourished, no acute distress, non-toxic appearance. [] HENT: Normocephalic, atraumatic, bilateral external ears normal, oropharynx moist, no oral exudates, nose normal. [] Eyes: PERRLA, EOMI, conjunctiva normal, no discharge. [] Neck: Normal range of motion, no tenderness, supple, no stridor. [] Cardiovascular:Heart rate regular rhythm, no murmur [] Lungs & Thorax: Bilateral breath sounds clear to auscultation [] Abdomen: Bowel sounds normal, soft, no tenderness, no masses, no pulsatile masses. [] Skin: Warm, dry, no erythema, no rash. [] Back: No tenderness, no CVA tenderness. [] Extremities: No tenderness, no cyanosis, no clubbing, ROM intact, no edema. [] Neurologic: Alert and oriented X 3, normal motor function, normal sensory fun ction, no focal deficits noted. [] Psychologic: Affect normal, judgement normal, mood normal. [] Current Patient Data Vital Signs Vital Signs Date Time Temp Pulse Resp B/P (MAP) Pulse Ox O2 Delivery O2 Flow Rate FiO2 08/20/19 12:24 99.2 114 18 135/83 (100) 97 Room Air 99.2 Lab Values Laboratory Tests Test 08/20/19 12:31 Influenza Type A Antigen Negative (NEGATIVE) Influenza Type B Antigen Negative (NEGATIVE) EKG EKG [] Radiology/Procedures Radiology/Procedures []PROCEDURE: CHEST PA & LATERAL CHEST PA LATERAL History: Cough Comparison: April 28, 2018 Findings: No consolidation or pleural effusion. Normal heart size. No pneumothorax. Impression: 1. No acute cardiopulmonary process. Electronically signed by: Danyelle Pelaez DO (08/20/2019 12:58 PM) [id number] DICTATED and SIGNED BY: DANYELLE PELAEZ DO DATE: 08/20/19 1258 Course & Med Decision Making Course & Med Decision Making Pertinent Labs and Imaging studies reviewed. (See chart for details) This is a 23-year-old female patient presenting to the ED today with sore throat, cough and a fever that began yesterday. Temperature 99.2. Chest x-ray is negative as interpreted by radiologist, negative influenza AB, negative rapid strep. Patient was discharged home. Follow-up with primary care doctor or the [facility] department for further consults related to Larson virus. Dragon Disclaimer Dragon Disclaimer This electronic medical record was generated, in whole or in part, using a voice recognition dictation system. Departure Departure Impression: Primary Impression: Fever Additional Impressions: Cough Acute pharyngitis Disposition: 01 HOME, SELF-CARE Condition: STABLE Referrals: MARQUEZ VASQUEZ APRN (PCP) follow up in the course of this week Patient Instructions: Cough, Adult, [id number], Fever, Adult, [id number], Viral Pharyngitis Additional Instructions: Your strep test was negative, your chest x-ray is negative, urine negative for influenza A or B. You can take Tylenol/Motrin for pain or fever. You can use salt water gargles. Please rest, push fluids, maintain good and hygiene. Please follow-up with your primary care doctor or [facility] for further concerns related to Larson Virus Problem Qualifiers Primary Impression: Fever Fever type: unspecified Qualified Codes: R50.9 - Fever, unspecified Additional Impressions: Acute pharyngitis Pharyngitis/tonsillitis etiology: unspecified etiology Qualified Codes: J02.9 - Acute pharyngitis, unspecified GIOVANNI STORM APRN Aug 20, 2019 12:47
--- NOTE | 2019-08-20 13:01 | RAD ---
CHEST PA LATERAL History: Cough Comparison: April 28, 2018 Findings: No consolidation or pleural effusion. Normal heart size. No pneumothorax. Impression: 1. No acute cardiopulmonary process. Electronically signed by: Lorenzo Pelaez DO (08/20/2019 12:58 PM) [id number]
[2019-08-20 13:04] LABS: INFLUENZA A PATIENT NEGATIVE (NEGATIVE); INFLUENZA B PATIENT NEGATIVE (NEGATIVE)
== END 2019-08-20 14:00 | disposition home or self-care (01) ==
LOC: ER 12:10
DX: J02.9 Acute pharyngitis, unspecified (principal); R50.9 Fever, unspecified; R05 Cough; J45.909 Unspecified asthma, uncomplicated
CPT/HCPCS: 71046; 87070; 87804; 87880; 99284

== ENCOUNTER 2020-04-09 15:49 | Emergency (ER) | payer OTHER ==
[~2020-04-09] VITALS: Ht 167.6 cm; Wt 100.0 kg
--- NOTE | 2020-04-09 17:24 | PHYS DOC ---
Past Medical History Past Medical History: Asthma Past Surgical History: , Tonsillectomy Additional Past Surgical Histo: wisdom teeth Smoking Status: Never Smoker Alcohol Use: None Drug Use: None General Adult EDM: Chief Complaint: COUGH HPI: HPI: Patient is a 24 year old female who presents with started went to [facility] for a nonproductive cough, throat pain and chest pain. She states that they stated that she had anxiety and gave her hydroxyzine and sent her home. She states that she is not getting better in the hydroxyzine is not working. She states that she does have intermittent nausea and shortness of breath. She states nothing makes this worse or better. She rates her nonreproducible aching chest pain at a 6 out of 10. Patient denies fever, abdominal pain, diarrhea, dizziness, headache, numbness or tingling, syncope, palpitations, focal weakness. She has a history of , control use, asthma, tonsillectomy, wisdom teeth surgery. Review of Systems: Review of Systems: Constitutional: Denies fever or chills. [] Eyes: Denies change in visual acuity. [] HENT: Denies nasal congestion. + sore throat. [] Respiratory: + cough or +shortness of breath. [] Cardiovascular: +Left chest pain or denies edema. [] GI: Denies abdominal pain. + nausea, denies vomiting, bloody stools or diarrhea. [] : Denies dysuria. [] Musculoskeletal: Denies back pain or joint pain. [] Integument: Denies rash. [] Neurologic: Denies headache, focal weakness or sensory changes. +Dizziness [] Endocrine: Denies polyuria or polydipsia. [] Lymphatic: Denies swollen glands. [] Psychiatric: Denies depression or anxiety. [] Heart Score: Risk Factors: Risk Factors: DM, Current or recent (<one month) smoker, HTN, HLP, family history of CAD, obesity. Risk Scores: Score 0 - 3: 2.5% MACE over next 6 weeks - Discharge Home Score 4 - 6: 20.3% MACE over next 6 weeks - Admit for Clinical Observation Score 7 - 10: 72.7% MACE over next 6 weeks - Early Invasive Strategies Allergies: Allergies: Allergies Coded Allergies Type Severity Reaction Last Updated Verified No Known Drug Allergies 04/01/19 No Physical Exam: PE: Constitutional: Well developed, well nourished, no acute distress, non-toxic appearance. [] HENT: Normocephalic, atraumatic, bilateral external ears normal, oropharynx moist, no oral exudates, nose normal. [] Eyes: PERRLA, EOMI, conjunctiva normal, no discharge. [] Neck: Normal range of motion, no tenderness, supple, no stridor. [] Cardiovascular:Heart rate regular rhythm, no murmur [] Lungs & Thorax: Bilateral breath sounds clear to auscultation [] Abdomen: Bowel sounds normal, soft, no tenderness, no masses, no pulsatile masses. [] Skin: Warm, dry, no erythema, no rash. [] Back: No tenderness, no CVA tenderness. [] Extremities: No tenderness, no cyanosis, no clubbing, ROM intact, no edema. [] Neurologic: Alert and oriented X 3, normal motor function, normal sensory function, no focal deficits noted. [] Psychologic: Affect normal, judgement normal, mood normal. Normal physical exam [] Current Patient Data: Labs: Laboratory Tests Test 04/09/20 17:03 POC Urine HCG, Qualitative Hcg negative (Negative) EKG: EK and read by Dr Sharp as Sinus Tachycardia, S1,Q3,T3[] Radiology/Procedures: Radiology/Procedures: [] Impression: [facility] [address] [place] [address] IMAGING REPORT Signed PATIENT: JOSÉ ACCOUNT: [id number] : 1995 LOCATION: ER AGE: 24 SEX: F EXAM STATUS: REG ER ORD. PHYSICIAN: EDWARD RYAN APRN REASON: cough PROCEDURE: PORTABLE CHEST 1V EXAM: PORTABLE CHEST 1V INDICATION: Reason: cough / Spl. Instructions: / History: . TECHNIQUE: Single view COMPARISON: 08/20/2019 FINDINGS: The heart size is normal. The great vessels appear unremarkable. There is no hilar or mediastinal mass. The lungs are hypoventilatory but clear. There is no pleural effusion or pneumothorax. There are no significant osseous abnormalities. IMPRESSION: No active cardiopulmonary disease. Electronically signed by: Gaston Benoit MD (04/09/2020 7:33 PM) [facility] DICTATED and SIGNED BY: GASTON BENOIT MD DATE: 04/09/20 1933 [facility] [address] [place] [address] IMAGING REPORT Signed PATIENT: JOSÉSEPTEMBER ACCOUNT: [id number] : 1995 LOCATION: ER AGE: 24 SEX: F EXAM STATUS: REG ER ORD. PHYSICIAN: EDWARD RYAN APRN REASON: TACHYCARDIC, HORMONE USE, SOA, CHEST PAIN WITH BREATHING PROCEDURE: CT ANGIOGRAPHY CHEST EXAM: CT Pulmonary Angiogram INDICATION: Reason: TACHYCARDIC, HORMONE USE, SOA, CHEST PAIN WITH BREATHING / Spl. Instructions: [id number] 100ML PUI / History: TECHNIQUE: Multi-detector row images were acquired from the thoracic inlet through the upper abdomen with the use of IV contrast. Sagittal and coronal images were acquired from the transaxial data. MIP images of the pulmonary arteries were obtained. All CT scans performed at this facility utilize dose optimization techniques as appropriate to the exam, including the following: Automated exposure control and adjustment of the mA and/or KV according to patient size (this includes techniques or standardized protocols for targeted exams where dose is indication/reason for exam). IV CONTRAST: Administered COMPARISON: None FINDINGS: Suboptimal but adequate opacification of the pulmonary arteries, with more limited evaluation of the subsegmental pulmonary arteries. PULMONARY ARTERIES: No pulmonary emboli are identified. CARDIOVASCULAR: Unremarkable Aorta is normal caliber. MEDIASTINUM & JUDY: No adenopathy or masses. Anterior mediastinal soft tissue consistent with thymic remnant is present. LUNGS: No pulmonary infiltrate, nodule, or other focal abnormality. PLEURAL SPACE: No pleural effusions or pneumothorax. OSSEOUS & SOFT TISSUE: Unremarkable ABDOMEN: The visualized portions of the upper abdomen are unremarkable. IMPRESSION: No evidence of pulmonary emboli. Electronically signed by: Gaston Benoit MD (04/09/2020 8:15 PM) [facility] DICTATED and SIGNED BY: GASTON BENOIT MD DATE: 04/09/202014 Course & Med Decision Making: Course & Med Decision Making Pertinent Labs and Imaging studies reviewed. (See chart for details) See HPI. Patient states that sometimes she feels dizzy when she is standing for a while. Lungs are clear to auscultation all lobes. Speaks in full complete sentences. Ambulatory with steady gait. Skin pink warm and dry. Alert and oriented x4. Calm and cooperative. Chest pain is not reproducible with palpation. States that it is intermittent. Abdomen is soft and nontender. EKG shows sinus tachycardia, no STEMI, S1, Q3, T3. Chest x-ray shows no acute findings. CT angio shows no acute findings. Patient will be treated as if she has Covid. She is to quarantine. She is given a Medrol Dosepak and a proair inhaler. I also gave her Keflex for her urinary tract infection. Patient will follow up with her primary care physician if needed. [] Nii Disclaimer: Nii Disclaimer: This electronic medical record was generated, in whole or in part, using a voice recognition dictation system. Departure Departure Impression: Primary Impression: Cough Additional Impressions: Person under investigation for COVID-19 UTI (urinary tract infection) Qualified Codes: N39.0 - Urinary tract infection, site not specified Disposition: 01 DC HOME SELF CARE/HOMELESS Condition: STABLE Referrals: NO PCP (PCP) Patient Instructions: Cough, Adult, Urinary Tract Infection Additional Instructions: Follow-up with primary care provider. Take your medication as prescribed. Drink plenty of fluids. You have been tested for or diagnosed with COVID-19. It is an infection caused by a new type of coronavirus. COVID-19 will cause cold-like or mild flu symptoms in most. It can cause more severe symptoms like problems breathing in some. There is no treatment for COVID-19. The body will clear the infection over time. Self-care will help to ease discomfort. Steps to Take: Self-Care Rest as needed. Healthy habits may help you feel better. Steps include: Choose healthy foods including fruits and vegetables. Drink water throughout the day. Get plenty of sleep each night. If you smoke, try to quit. It may ease breathing. Avoid alcohol. Keep Others Healthy The virus can spread to others. Droplets are released every time you sneeze or cough. The droplets can get into the mouth, nose, or eyes of people near you and lead to infection. To lower the chances of spreading COVID-19 to others: Stay at home until your doctor has said it is safe to leave. If you tested positive this will mean staying isolated until both of the following are true: At least 7 days have passed since the start of illness. You are free of fever for at least 72 hours without the use of medicine. During this time: - Avoid public areas, events, or transportation. Do not return to work or school until your doctor has said it is safe to do so. - Call ahead if you need to go to a medical center. Let them know you may have COVID-19. It will help them guide you where to go. They may also ask you to wear a facemask when you come to the office. - If you call for emergency medical services, let them know you may have COVID- 19. While at home: - Try to avoid close contact with others. Stay about 6 feet away. - If possible, spend most of your time in a separate room from others. - Use a face mask if you will be in close contact with others such as sharing a room or vehicle. - Have someone wipe down common surfaces in the home. Use household blocker and polisher every day on areas like doorknobs, counters, or sinks. - Cough or sneeze into a tissue. Throw the tissue away right after use. If a tissue is not available, cough or sneeze into your elbow. - Wash your hands often. Wash them after sneezing or coughing. Use soap and water and wash for at least 20 seconds. Alcohol based hand cleaner laboratory equipment can be used if soap and water is not available. - Do not prepare food for others. Avoid sharing personal items like forks, spoons, or toothbrushes. - Avoid close contact with pets while you are sick. There is no evidence of the virus passing to pets. This is a safety step until more is known about this virus. Isolation can be frustrating. Social interaction can help. Keep in touch with friends and family through phone and tech options. You can still interact with others in your home, just keep a safe distance of about 6 feet. Follow-up: Your doctors office will check in with you to see if there are any changes in your health. You may be asked to keep track of symptoms to share with them. They will also let you know when you are clear to be in public again. Problems to Look Out For: Contact your doctor if your recovery is not going as you expect. Get emergency care if you have problems such as: - Trouble breathing - Nonstop chest pain or pressure - Changes in awareness, confusion, or problems waking - Lips or face have bluish color - Worsening of symptoms If you think you have an emergency, call for emergency medical services right away. As taken from [facility] Cephalexin (KEFLEX) 500 Mg Capsule 1 CAP PO BID for 7 Days, #14 CAP 0 Refills Prov: EDWARD RYAN FACULTY MEMBER 04/09/20 Albuterol Sulfate (PROAIR HFA INHALER) 8.5 Gm Hfa.aer.ad 1 PUFF INH PRN Q6HRS PRN for SHORTNESS OF BREATH, #1 INHALER 0 Refills Prov: EDWARD RYAN FACULTY MEMBER 04/09/20 Methylprednisolone (MEDROL) 4 Mg Tab.ds.pk 1 PKG PO UD, #1 PKG Prov: EDWARD RYAN FACULTY MEMBER 04/09/20 EDWARD RYAN FACULTY MEMBER Apr 09, 2020 17:23
[2020-04-09 17:26] LABS: BARBITURATES POS (NEG); BENZODIAZEPINES NEG (NEG); CANNABINOIDS NEG (NEG); COCAINE NEG (NEG); METHADONE NEG (NEG); OPIATES NEG (NEG); PHENCYCLIDINE NEG (NEG)
[2020-04-09 17:36] LABS: BILIRUBIN,URINE NEGATIVE (NEG); CLARITY,URINE CLOUDY; COLOR,URINE YELLOW; NITRITE,URINE NEGATIVE (NEG); PROTEIN,URINE NEGATIVE (NEG-TRACE); UROBILINOGEN,URINE 0.2 mg/dL (0.2 mg/dL)
[2020-04-09 17:37] LABS: AMPHETAMINE/METHAMPHETAMINE NEG (NEG)
[2020-04-09 17:42] LABS: BASO # 0.1 x10^3/uL (0.0-0.2); BASO % 1 % (0-3); EOS # 0.3 x10^3/uL (0.0-0.7); EOS % 2 % (0-3); HEMATOCRIT 41.5 % (36.0-47.0); HEMOGLOBIN 13.5 g/dL (12.0-15.5); LYMPH # 4.8 x10^3/uL (1.0-4.8); LYMPH % 39 % (24-48); MEAN CORPUSCULAR HEMOGLOBIN 29 pg (25-35); MEAN CORPUSCULAR HGB CONC 33 g/dL (31-37); MEAN CORPUSCULAR VOLUME 89 fL (79-100); MONO # 0.8 x10^3/uL (0.0-1.1); MONO % 7 % (0-9); NEUT # 6.2 x10^3/uL (1.8-7.7); NEUT % 51 % (31-73); PLATELET COUNT 292 x10^3/uL (140-400); RED BLOOD COUNT 4.64 x10^6/uL (3.50-5.40); RED CELL DISTRIBUTION WIDTH 16.3 % (11.5-14.5); WHITE BLOOD COUNT 12.1 x10^3/uL (4.0-11.0)
[2020-04-09 17:42] LABS: BACTERIA,URINE MODERATE /HPF (0-FEW); WBC,URINE >40 /HPF (0-4)
[2020-04-09 17:58] LABS: CREATININE 0.8 mg/dL (0.6-1.0); GFR 106.6; POTASSIUM 3.9 mmol/L (3.5-5.1)
[2020-04-09 18:05] LABS: ALBUMIN 3.2 g/dL (3.4-5.0); ALBUMIN/GLOBULIN RATIO 0.7 (1.0-1.7); D-DIMER 0.39 ug/mlFEU (0.00-0.50); TOTAL BILIRUBIN 0.1 mg/dL (0.2-1.0); TOTAL PROTEIN 7.7 g/dL (6.4-8.2)
[2020-04-09] MEDS ORDERED: cefTRIAXone IV Push 1 GM VIAL. IVP ONE (19:00)
[2020-04-09 19:30] VITALS: BP 116/56
[2020-04-09] MEDS ORDERED: IV NORMAL SALINE 1000ML BAG 1,000 ML IV ONE (19:30)
--- NOTE | 2020-04-09 19:36 | RAD ---
EXAM: PORTABLE CHEST 1V INDICATION: Reason: cough / Spl. Instructions: / History: . TECHNIQUE: Single view COMPARISON: 08/20/2019 FINDINGS: The heart size is normal. The great vessels appear unremarkable. There is no hilar or mediastinal mass. The lungs are hypoventilatory but clear. There is no pleural effusion or pneumothorax. There are no significant osseous abnormalities. IMPRESSION: No active cardiopulmonary disease. Electronically signed by: Nevaeh Boateng MD (04/09/2020 7:33 PM) [facility]
[2020-04-09] MEDS ORDERED: IOHEXOL 350 MG/ML 100 ML VIAL. IV ONE (19:45)
[2020-04-09] MEDS ORDERED: CONTRAST GIVEN. MC PRN (20:00)
[2020-04-09] MEDS ORDERED: ACETAMINOPHEN 500 MG TABLET PO ONE (20:15)
--- NOTE | 2020-04-09 20:18 | RAD ---
EXAM: CT Pulmonary Angiogram INDICATION: Reason: TACHYCARDIC, HORMONE USE, SOA, CHEST PAIN WITH BREATHING / Spl. Instructions: [id number] 100ML PUI / History: TECHNIQUE: Multi-detector row images were acquired from the thoracic inlet through the upper abdomen with the use of IV contrast. Sagittal and coronal images were acquired from the transaxial data. MIP images of the pulmonary arteries were obtained. All CT scans performed at this facility utilize dose optimization techniques as appropriate to the exam, including the following: Automated exposure control and adjustment of the mA and/or KV according to patient size (this includes techniques or standardized protocols for targeted exams where dose is indication/reason for exam). IV CONTRAST: Administered COMPARISON: None FINDINGS: Suboptimal but adequate opacification of the pulmonary arteries, with more limited evaluation of the subsegmental pulmonary arteries. PULMONARY ARTERIES: No pulmonary emboli are identified. CARDIOVASCULAR: Unremarkable Aorta is normal caliber. MEDIASTINUM & JUDY: No adenopathy or masses. Anterior mediastinal soft tissue consistent with thymic remnant is present. LUNGS: No pulmonary infiltrate, nodule, or other focal abnormality. PLEURAL SPACE: No pleural effusions or pneumothorax. OSSEOUS & SOFT TISSUE: Unremarkable ABDOMEN: The visualized portions of the upper abdomen are unremarkable. IMPRESSION: No evidence of pulmonary emboli. Electronically signed by: Nevaeh Boateng MD (04/09/2020 8:15 PM) [facility]
[2020-04-09] MEDS ORDERED: METH4TAB2 PO (20:49)
[2020-04-09] MEDS ORDERED: ALBU2.5V8 INH (20:49)
[2020-04-09] MEDS ORDERED: CEPH-264 PO (20:50)
--- NOTE | 2020-04-11 16:49 | NUR ---
IP: Attempted to call COVID results. No answer. Left a voicemail to return the call. Addendum: 04/11/20 at 1652 by JS GOLDSTEIN RN IP): Pt returned call. I informed her of the negative COVID test. Pt verbalized understanding.
== END 2020-04-09 21:33 | disposition home or self-care (01) ==
LOC: ER 15:49
DX: N39.0 Urinary tract infection, site not specified (principal); Z20.828 Contact with and (suspected) exposure to other viral communicable diseases; R05 Cough; R06.02 Shortness of breath; R07.89 Other chest pain; R11.0 Nausea; R42 Dizziness and giddiness; J45.909 Unspecified asthma, uncomplicated; Z98.890 Other specified postprocedural states
CPT/HCPCS: 36415; 71045; 71275; 80053; 80307; 81001; 81025; 84484; 85025; 85379; 85610; 87086; 96361; 96374; 99285; C9803; J0696; J7030; U0003

== ENCOUNTER → 2020-06-27 | Outpatient (CLI) | payer OTHER ==
[~2020-06-27] MED LIST changes: +METH4TAB2 PO
== END ==
LOC: LAB 16:24
PROVIDERS: ATTEND Obstetrics & Gynecology
DX: Z01.419 Encounter for gynecological examination (general) (routine) without abnormal findings (principal); Z11.3 Encounter for screening for infections with a predominantly sexual mode of transmission
CPT/HCPCS: 36415; 86592; 86703

== ENCOUNTER 2020-10-23 09:06 | Emergency (ER) | payer OTHER ==
[~2020-10-23] VITALS: Ht 162.6 cm; Wt 138.0 kg
[2020-10-23 09:38] VITALS: BP 131/79
--- NOTE | 2020-10-23 09:51 | PHYS DOC ---
Past Medical History Past Medical History: Asthma Past Surgical History: , Tonsillectomy Additional Past Surgical Histo: wisdom teeth Smoking Status: Never Smoker Alcohol Use: None Drug Use: None General Adult EDM: Chief Complaint: GENERALIZED BODY ACHES HPI: HPI: 25-year-old female presents emergency department today with sore throat mild cough congestion and myalgias for the past 2 to 3 days. Her symptoms have waxed and waned and she generally has been feeling better however her sore throat was worse this morning. She has generalized myalgias in her muscles that is a aching mild to moderate pain without alleviating factors. Review of systems is negative for nuchal rigidity rash, fevers. Positive for generalized fatigue and malaise. Positive for sore throat. Negative for dif ficulty swallowing or neck swelling. All other review of systems negative ED course: 25-year-old female presenting with a viral syndrome. Covid, influenza and strep test ordered. Patient is well-appearing with normal oxygen levels and a normal physical exam. Strep and flu test are negative here in the emergency department. Covid test pending at this time. We will have the elvia schwarz isolate until Covid test returns. The patient has been examined and was not found to have an emergency medical condition. The patient was then discharged home in stable condition to follow up with their primary care physician over the next 1-2 days. They were to return if their symptoms worsened or if they were concerned for any reason. They were also instructed to return t o the emergency department if they were unable to get the recommended and appropriate follow-up. [id number] discharge instructions and return precautions were given. Patient's questions were answered to their satisfaction. Patient is comfortable with plan. Heart Score: C/O Chest Pain: No Risk Factors: Risk Factors: DM, Current or recent (<one month) smoker, HTN, HLP, family history of CAD, obesity. Risk Scores: Score 0 - 3: 2.5% MACE over next 6 weeks - Discharge Home Score 4 - 6: 20.3% MACE over next 6 weeks - Admit for Clinical Observation Score 7 - 10: 72.7% MACE over next 6 weeks - Early Invasive Strategies Allergies: Allergies: Allergies Coded Allergies Type Severity Reaction Last Updated Verified No Known Drug Allergies 04/01/19 No Physical Exam: PE: Constitutional: Well developed, well nourished, no acute distress, non-toxic appearance. [] HENT: Normocephalic, atraumatic, bilateral external ears normal, oropharynx moist, no oral exudates, nose normal. [] No nuchal rigidity. No meningismus. Patient's pharynx is minimally erythematous without any swelling. No exudates. No peritonsillar abscess. Uvula midline. Eyes: PERRLA, EOMI, conjunctiva normal, no discharge. [] Neck: Normal range of motion, no tenderness, supple, no stridor. [] Cardiovascular:Heart rate regular rhythm, no murmur [] regular rate and rhythm. Lungs & Thorax: Bilateral breath sounds clear to auscultation [] no wheezing. Abdomen: Bowel sounds normal, soft, no tenderness, no masses, no pulsatile masses. [] No rebound tenderness or guarding. Negative [place]'s point. Negative Garza sign. Skin: Warm, dry, no erythema, no rash. [] Back: No tenderness, no CVA tenderness. [] Extremities: No tenderness, no cyanosis, no clubbing, ROM intact, no edema. [] Neurologic: Alert and oriented X 3, normal motor function, normal sensory function, no focal deficits noted. [] Psychologic: Affect normal, judgement normal, mood normal. [] Current Patient Data: Vital Signs: Vital Signs Date Time Temp Pulse Resp B/P (MAP) Pulse Ox O2 Delivery O2 Flow Rate FiO2 10/23/20 09:38 98.7 98 16 131/79 (96) 98 Room Air 98.7 EKG: EKG: [] Radiology/Procedures: Radiology/Procedures: [] Course & Med Decision Making: Course & Med Decision Making Pertinent Labs and Imaging studies reviewed. (See chart for details) [] Dragon Disclaimer: Dragon Disclaimer: This electronic medical record was generated, in whole or in part, using a voice recognition dictation system. Departure Departure Impression: Primary Impression: Upper respiratory infection Additional Impression: Viral syndrome Disposition: HOME / SELF CARE / HOMELESS Condition: STABLE Referrals: NO PCP (PCP) Patient Instructions: Viral Syndrome Additional Instructions: EMERGENCY DEPARTMENT GENERAL DISCHARGE INSTRUCTIONS Follow-up with your primary physician in 1 to 2 days. Your Covid test is not back yet. Please isolate and quarantine until the test result returns. Return to the emergency department if you have any new or concerning findings. Thank you for coming to [facility] Emergency Department (ED) today and trusting us with you care. We trust that you had a positive experience in our Emergency Department. If you wish to speak to the department management, you may call the Director at [phone]. Follow up is important in emergency/acute care visits. This condition should be evaluated by your primary care physician and any necessary consulting services for continued management within a few days (1-2) after discharge. Return to the emergency department if you have any new or concerning symptoms including but not limited to fever, chills, nausea, vomiting, intractable pain, any new rashes, chest pain, shortness of breath, uncontrolled bleeding, difficulty breathing, and/or vision loss. 1. Do you have a private Doctor? If you do not have a private doctor, please ask for a resource list of physicians or clinics that may be able to assist you with follow up care. 2. If a lab test or culture has been done and does not come back immediately, your results will be reviewed and you will be notified if you need a change in treatment. 3. Your care today has been supervised by a physician who is specially trained in emergency care. Many problems require more than one evaluation for a complete diagnosis and treatment. We recommend that you schedule your follow up appointment as recommended to ensure complete treatment of you illness or injury. If you are unable to obtain follow up care and continue to have a problem, or if your condition worsens, we recommend that you return to the ED. 4. We are not able to safely determine your condition over the phone nor are we able to give sound medical advice over the phone. For these safety reasons, if you call for medical advice we will ask you to come to the ED for further evaluation. IF YOUR SYMPTOMS WORSEN OR NEW SYMPTOMS DEVELOP, OR YOU HAVE CONCERNS ABOUT YOUR CONDITION; OR IF YOUR CONDITION WORSENS WHILE YOU ARE WAITING FOR YOUR FOLLOW UP APPOINTMENT; EITHER CONTACT YOUR PRIMARY CARE DOCTOR, THE PHYSICIAN WHOSE NAME AND NUMBER YOU WERE GIVEN, OR RETURN TO THE ED IMMEDIATELY. ARLEEN SUH MD October 23, 2020 09:51
[2020-10-23 10:58] LABS: INFLUENZA A PATIENT NEGATIVE (NEGATIVE); INFLUENZA B PATIENT NEGATIVE (NEGATIVE)
--- NOTE | 2020-10-23 16:56 | NUR ---
IP: Informed pt of negative COVID test. Pt verbalized understanding.
== END 2020-10-23 12:08 | disposition home or self-care (01) ==
LOC: ER 09:06
DX: B34.9 Viral infection, unspecified (principal); Z20.822 Contact with and (suspected) exposure to COVID-19; J06.9 Acute upper respiratory infection, unspecified; J45.909 Unspecified asthma, uncomplicated
CPT/HCPCS: 87070; 87804; 87880; 99283; U0003; U0005